=== PATIENT | male | born 1940 | race Caucasian/White ===

== ENCOUNTER → 2016-08-01 | Outpatient (CLI) | payer MEDICARE ==
[~2016-08-01] VITALS: Ht 182.9 cm; Wt 122.5 kg
[~2016-08-01] MED LIST: ALFU10TA11 PO; AMLO5TAB2 PO; AMLO5TAB5 PO; ASCO100099 PO; ASP325TEC PO; ASPI-808 PO; BETH10TA PO; CARV12.53 PO; CARV3.122 PO; CINN1CAP2 PO; CLIN150C17 PO; CLIN300C11 PO; COLC0.6C3 PO; DOCU100C37 PO; DOCU100T2 PO; FENO135C PO; FISH12002 PO; FLUO20CA25 PO; GEMF600T3 PO; GLIM4TAB PO; GLMP2T PO; HYDR-3820 PO; HYDR25TA4 PO; INSU100I29 SQ; IRON150C3 PO; LACT1CAP62 PO; LOSA100T28 PO; LOSA100T7 PO; LOVA40TA2 PO; METF1000 PO; MTF500T PO; MULT-963 PO; NAPR220T76 PO; NEBI5TAB8 PO; NIAC1000 PO; NIAC500T10 PO; NIAC500T24 PO; NTR.4SL SL; OLME1TAB25 PO; OSTEO BI-FLEX1 EACH PO; OXYC-465 PO; OXYC-471 PO; POLY119P5 PO; POLY17PO23 PO; POTA-51 PO; POTA2TAB15 PO; POTA99TA17 PO; POTA99TA18 PO; REGADENOSON 0.4 MG/5 ML SYR (LEXISCAN) IV ONE; RNT150T PO; SENN-20 PO; TRAM50TA2 PO; VITA150T PO
[2016-08-01] MEDS: CATHETER FLUSH 10 ML SYR IV PRN ×2 (07:42→09:02)
[2016-08-01 08:59] VITALS: BP 113/69
--- NOTE | 2016-08-02 07:50 | STRESS TEST ---
PROCEDURE PHYSICIAN: KELLEY KINGSLEY DATE OF PROCEDURE: 08/01/2016 LEXISCAN MYOVIEW STRESS TEST REPORT: REFERRING PHYSICIAN: Dr. Manasa Vasquez BASELINE HEART RATE: 68 BASELINE BLOOD PRESSURE: 113/69 BASELINE EKG: Sinus rhythm with no ischemic changes. IN SUMMARY: The patient was injected with 10.81 mCi of technetium 99 Myoview and the resting images were obtained. Then the patient received 0.4 mg of Lexiscan followed by 30.7 mCi of technetium 99 Myoview. Throughout the test, there were no EKG changes. The resting and stress images were reviewed and compared in the short axis, horizontal long axis, and vertical long axis views. Review of the images showed diaphragmatic attenuation with fixed defect at the basal to mid inferior wall, reversible ischemia involving the mid to apical inferior wall and inferior septum. SSS is 12, SDS 4, TID value 0.98. On the gated images, the left ventricle appeared to be normal size with mild hypokinesia at the true apex and anteroapical segment. Calculated ejection fraction 46%. IN CONCLUSION: 1. The patient tolerated Lexiscan well. 2. Diaphragmatic attenuation affecting the quality of the images with questionable ischemia involving the mid to apical inferior wall and inferior septum, fixed defect at the basal to mid inferior wall. 3. Normal left ventricular size with mild hypokinesia at the true apex and anteroapical segment. Calculated ejection fraction 46%. Job ID: [id number] Dictated Date: 08/01/2016 16:38:40 Risk Management Consultant Date: 08/02/2016 07:46:36 / casimiro
== END ==
LOC: CARD 07:31
PROVIDERS: ATTEND Physician Assistant
DX: I25.10 Atherosclerotic heart disease of native coronary artery without angina pectoris (principal); I65.23 Occlusion and stenosis of bilateral carotid arteries; I10 Essential (primary) hypertension; E78.2 Mixed hyperlipidemia
CPT/HCPCS: 78452; 93017

== ENCOUNTER → 2017-02-08 | Outpatient (CLI) | payer MEDICARE ==
[~2017-02-08] MED LIST changes: -REGADENOSON 0.4 MG/5 ML SYR (LEXISCAN) IV ONE
[2017-02-08 10:19] LABS: ALBUMIN 4.2 GM/DL (3.2-4.5); BILIRUBIN,TOTAL 0.4 MG/DL (0.1-1.0); CREATININE SERUM 1.51 MG/DL (0.60-1.30); POTASSIUM 4.2 MMOL/L (3.6-5.0); TOTAL PROTEIN 7.7 GM/DL (6.4-8.2)
== END ==
LOC: LAB 09:40
PROVIDERS: ATTEND Internal Medicine Cardiovascular Disease
DX: I25.10 Atherosclerotic heart disease of native coronary artery without angina pectoris (principal); I11.0 Hypertensive heart disease with heart failure; I50.1 Left ventricular failure, unspecified; I65.23 Occlusion and stenosis of bilateral carotid arteries
CPT/HCPCS: 36415; 80053; 80061

== ENCOUNTER → 2017-08-14 | Outpatient (CLI) | payer MEDICARE ==
[~2017-08-14] MED LIST changes: -METF1000 PO; +METF10002 PO
[2017-08-14 12:03] LABS: ALBUMIN 4.4 GM/DL (3.2-4.5); BILIRUBIN,TOTAL 0.5 MG/DL (0.1-1.0); CALCIUM 10.5 MG/DL (8.5-10.1); CREATININE SERUM 1.54 MG/DL (0.60-1.30); POTASSIUM 4.1 MMOL/L (3.6-5.0)
== END ==
LOC: LAB 11:26
PROVIDERS: ATTEND Physician Assistant
DX: I25.10 Atherosclerotic heart disease of native coronary artery without angina pectoris (principal); I10 Essential (primary) hypertension; E78.2 Mixed hyperlipidemia
CPT/HCPCS: 36415; 80053; 80061

== ENCOUNTER → 2017-08-16 | Outpatient (CLI) | payer MEDICARE ==
--- NOTE | 2017-08-16 12:55 | Diagnostic Imaging Report ---
PROCEDURE: CT left upper extremity without contrast. TECHNIQUE: Multiple contiguous axial images were obtained through the left upper extremity without the use of intravenous contrast. INDICATION: Painful hardware in left wrist. COMPARISON: 12/21/2014. FINDINGS: There is a dorsal plate with multiple screws, transfixing the radius, carpus, and third metacarpal. The three distal most screws are fractured. The two distal most screws have the heads removed. The plate appears intact. No significant hardware loosening is seen. There is some osseous fusion at the radioscaphoid joint, of approximately 70%. A small amount of osseous bridging is seen at the radiolunate joint, with some osseous fusion across the scapholunate interval (image 46 series 6). There is bony bridging at the dorsal aspect of the capitate and scaphoid as well as at the lunate and scaphoid, involving approximately the dorsal one-third of the joints. No other areas of bony union are seen. Degenerative changes are seen throughout the carpus. There are also mild degenerative changes at the distal radioulnar joint and in the visible hand. No soft tissue fluid collections are seen. The tendons and ligaments are suboptimally evaluated by CT. There are small soft tissue densities superficial to the flexor tendons of the third and fourth fingers (image 35 series 4), which may represent small areas of scarring or fibrosis. IMPRESSION: Dorsal plate fixating the third ray of the left hand, with fractured distal screws. There is [id number] osseous bridging at the areas described above, involving the radius, scaphoid, lunate and capitate. No acute fracture is seen. Dictated by: Dictated on workstation # [id number]
== END ==
LOC: RAD 09:14
PROVIDERS: ATTEND Orthopaedic Surgery
DX: T84.318A Breakdown (mechanical) of other bone devices, implants and grafts, initial encounter (principal)
CPT/HCPCS: 73200

== ENCOUNTER → 2017-11-20 | Outpatient (CLI) | payer MEDICARE ==
[~2017-11-20] MED LIST changes: -GEMF600T3 PO; +GEMF600T4 PO
--- NOTE | 2017-11-20 14:25 | Diagnostic Imaging Report ---
PROCEDURE: CT left upper extremity without contrast. TECHNIQUE: Multiple contiguous axial images were obtained through the left upper extremity without the use of intravenous contrast. INDICATION: Fracture. COMPARISON: Comparison made with prior examination 08/16/2017. FINDINGS: The previously seen plate transfixing the third ray of the right hand to the radius has been removed. There are three screws which remain in the third metacarpal. There are severe degenerative changes of the radiocarpal joint. There is osseous fusion at the radioscaphoid joint. There is also some osseous bridging in the radiolunate joint. Some osseous fusion again seen across the scapholunate. There is bony bridging along the dorsal aspect of the capitate and scaphoid as well as the lunate and scaphoid. There is no other acute fracture or dislocation. Soft tissues grossly unremarkable. Tendons and ligaments again are suboptimally evaluated by CT. There is some questionable fibrosis along the flexor tendons of the third and fourth fingers. IMPRESSION: 1. Interval removal of the dorsal plate which was fixating the third metacarpal to the radius. 2. Three screws remain in the third metacarpal. 3. Extensive degenerative changes as described. Dictated by: Dictated on workstation # [id number]
== END ==
LOC: RAD 12:51
PROVIDERS: ATTEND Nurse Practitioner Family
DX: S62.132A Displaced fracture of capitate [os magnum] bone, left wrist, initial encounter for closed fracture (principal); M19.032 Primary osteoarthritis, left wrist; Z96.7 Presence of other bone and tendon implants
CPT/HCPCS: 73200

== ENCOUNTER 2020-04-10 10:03 | Emergency (ER) | payer MEDICARE ==
[~2020-04-10] VITALS: Ht 180 cm; Wt 136.1 kg
[~2020-04-10 10:03] MED LIST changes: +ACHYD1T PO; -ALFU10TA11 PO; +ALFU10TA12 PO; +AMLO-250 PO; -AMLO5TAB2 PO; -CLIN300C11 PO; +CLIN300C12 PO; -FLUO20CA25 PO; +FLUO20CA46 PO; -GEMF600T4 PO; +GEMF600T8 PO; -GLIM4TAB PO; +GLIM4TAB5 PO; -HYDR-3820 PO; -LOSA100T28 PO; +LOSA100T57 PO; +METF-399 PO; -METF10002 PO; -NIAC500T10 PO; -OXYC-465 PO; +OXYC-556 PO; -POLY17PO23 PO; +POLY17PO31 PO; -TRAM50TA2 PO; +TRM50T PO; +[UNRECOGNIZED DRUG - CODE] PO
[2020-04-10] MEDS ORDERED: ASPIRIN 81 MG CHEW (CHILDREN'S ASA) ONE (10:30)
[2020-04-10] MEDS ORDERED: NITROGLYCERIN 0.4 MG SL TABS BTL 25'S SL ONE (10:34)
--- NOTE | 2020-04-10 10:56 | ED Chest Pain ---
General Chief Complaint: Chest Pain Stated Complaint: CP Source: patient Exam Limitations: no limitations History of Present Illness Date Seen by Provider: Apr 10, 2020 Time Seen by Provider: 10:50 Initial Comments Patient is a 79-year-old male who presents to the emergency department today with a chief complaint of substernal chest pain. Patient states that he woke up at 3 AM this morning with some chest pain and took some nitroglycerin. States was able to go back to sleep and woke up again at 9:00 this morning and had a repeat of chest pain. Patient was just getting up and out of bed when he had the discomfort. He rated it at a 6-7 at its worst. At the time of my evaluation his pain is resolved. When presenting to the emergency department he was continuing to complain of a little bit of pressure at a "2". Patient had one more nitroglycerin here which completely alleviated his pain. He denies any associated sweating or nausea. He did have a little shortness of breath with the discomfort. It was nonradiating. Patient tells me that he had stents placed approximately 4 months ago when he was visiting in [place]. Patient's local missionary coordinator is Dr. Barrow. He has an appointment with Dr. Barrow on May 04. Patient denies any recent illnesses, no fevers, chills, productive cough. No coronavirus contacts. No other GI or complaints. All other review of systems reviewed and negative except as stated above. Timing/Duration: 4-6 hours Severity/Quality: moderate Location: substernal Radiation: no radiation Activities at Onset: none Prior CP/Workup: cardiac cath (stent 4 months ago) Modifying Factors: improves with nitroglycerin ASA po BOTTLE LINE WORKER: No NTG SL BOTTLE LINE WORKER: No Allergies and Home Medications Allergies Coded Allergies: No Known Drug Allergies (Unverified , 12/19/12) Home Medications Alfuzosin HCl 10 Mg Tab.er.24h, 10 MG PO DAILY@1800 Prescribed by: MONAE SALAZAR on 02/03/161802 Ascorbic Acid 1,000 Mg Tablet, 1,000 MG PO DAILY, (Reported) Aspirin 325 Mg Tablet, 325 MG PO BID, (Reported) Carvedilol 12.5 Mg Tablet, 12.5 MG PO BID, (Reported) Docusate Sodium 100 Mg Capsule, 100 MG PO BID Prescribed by: MONAE SALAZAR on 02/03/161802 Fish Oil/Borage/Flax/Om3,6,9#1 1,200 Mg Capsule, 1,200 MG PO DAILY, (Reported) Fluoxetine HCl 20 Mg Capsule, 20 MG PO DAILY, (Reported) Gemfibrozil 600 Mg Tablet, 600 MG PO BID, (Reported) Hydrochlorothiazide 25 Mg Tablet, 25 MG PO DAILY, (Reported) Hydrocodone Bit/Acetaminophen 1 Each Tablet, 1 EA PO Q4H PRN for PAIN Prescribed by: MONAE SALAZAR on 02/03/161802 Insulin Detemir 100 Unit/1 Ml Insuln.pen, 24 UNITS SQ HS, (Reported) Losartan Potassium 100 Mg Tablet, 100 MG PO DAILY, (Reported) Lovastatin 40 Mg Tablet, 40 MG PO HS, (Reported) Metformin HCl 1,000 Mg Tablet, 1,000 MG PO BID, (Reported) Multivitamin 1 Each Tablet, 1 TAB PO DAILY, (Reported) Polyethylene Glycol 3350 119 Gm Powder, 17 GM PO DAILY PRN for CONSTIPATION, (Reported) Potassium Gluconate 99 Mg Tablet, 99 MG PO DAILY, (Reported) Ranitidine Hcl 150 Mg Tablet, 150 MG PO HS, (Reported) Vitamin B Complex & Vit C No.4 150 Mg Tablet, 150 MG PO DAILY, (Reported) Patient Home Medication List Home Medication List Reviewed: Yes Review of Systems Review of Systems Constitutional: no symptoms reported, see HPI EENTM: No Symptoms Reported Respiratory: No Symptoms Reported Cardiovascular: Chest Pain Gastrointestinal: No Symptoms Reported Genitourinary: No Symptoms Reported Musculoskeletal: no symptoms reported Skin: no symptoms reported Psychiatric/Neurological: No Symptoms Reported Past Cqegjxg-Laiynn-Aonbke Hx Patient Social History Former Smoker, Quit: September 03, 1996 Recent Foreign Travel: No Contact w/Someone Who Travel: No Recent Hopitalizations: Yes Immunizations Up To Date Tetanus Booster (TDap): More than 5yrs Date of Pneumonia Vaccine: Jul 24, 2011 Date of Influenza Vaccine: Jan 07, 2014 Seasonal Allergies Seasonal Allergies: No Past Medical History CABG, Joint Replacement, Orthopedic Sleep Apnea Currently Using CPAP: Yes Currently Using BIPAP: No Coronary Artery Disease, High Cholesterol, Hypertension Dementia Reproductive Disorders: No Sexually Transmitted Disease: No HIV/AIDS: No Renal Failure Chronic Constipation Degenerate Disk Disease Diabetes, Insulin dep Anxiety, Depression Adverse Reaction/Blood Tranf: No Family Medical History No Pertinent Family Hx, Diabetes Physical Exam Vital Signs Vital Signs - First Documented 04/10/20 10:13 Temp 36.4 Pulse 76 Resp 17 B/P (MAP) 167/81 (109) Pulse Ox 97 O2 Delivery Room Air Capillary Refill : Height, Weight, BMI Height: 6'0.00" Weight: 270lbs. 0.0oz. 122.989241sj; 36.6 BMI Method:Stated General Appearance: No Apparent Distress, WD/WN HEENT: PERRL/EOMI Neck: Full Range of Motion Respiratory: Chest Non Tender, Lungs Clear, Normal Breath Sounds, No Accessory Muscle Use, No Respiratory Distress Cardiovascular: Regular Rate, Rhythm, Systolic Murmur Gastrointestinal: Normal Bowel Sounds, Non Tender, Soft Extremity: Normal Capillary Refill, Normal Inspection, Normal Range of Motion, Non Tender, No Calf Tenderness, No Pedal Edema Neurologic/Psychiatric: Alert, Oriented x3, No Motor/Sensory Deficits, Normal Mood/Affect, supervisor plate pasting II-XII Norm as Tested Skin: Normal Color, Warm/Dry Progress/Results/Core Measures Results/Orders Lab Results Laboratory Tests Test 04/10/20 10:28 04/10/20 13:25 Range/Units White Blood Count 8.2 4.3-11.0 10^3/uL Red Blood Count 3.16 L 4.30-5.52 10^6/uL Hemoglobin 7.5 L 13.3-17.7 g/dL Hematocrit 25 L 40-54 % Mean Corpuscular Volume 80 80-99 fL Mean Corpuscular Hemoglobin 24 L 25-34 pg Mean Corpuscular Hemoglobin Concent 30 L 32-36 g/dL Red Cell Distribution Width 18.1 H 10.0-14.5 % Platelet Count 371 130-400 10^3/uL Mean Platelet Volume 11.3 9.0-12.2 fL Immature Granulocyte % (Auto) 1 % Neutrophils (%) (Auto) 49 42-75 % Lymphocytes (%) (Auto) 30 12-44 % Monocytes (%) (Auto) 13 H 0-12 % Eosinophils (%) (Auto) 6 0-10 % Basophils (%) (Auto) 1 0-10 % Neutrophils # (Auto) 4.0 1.8-7.8 10^3/uL Lymphocytes # (Auto) 2.5 1.0-4.0 10^3/uL Monocytes # (Auto) 1.1 H 0.0-1.0 10^3/uL Eosinophils # (Auto) 0.5 H 0.0-0.3 10^3/uL Basophils # (Auto) 0.1 0.0-0.1 10^3/uL Immature Granulocyte # (Auto) 0.1 0.0-0.1 10^3/uL Prothrombin Time 16.0 H 12.2-14.7 SEC INR Comment 1.2 0.8-1.4 Activated Partial Thromboplast Time 34 24-35 SEC Sodium Level 142 135-145 MMOL/L Potassium Level 4.0 3.6-5.0 MMOL/L Chloride Level 112 H 98-107 MMOL/L Carbon Dioxide Level 19 L 21-32 MMOL/L Anion Gap 11 5-14 MMOL/L Blood Urea Nitrogen 51 H 7-18 MG/DL Creatinine 1.80 H 0.60-1.30 MG/DL Estimat Glomerular Filtration Rate 37 BUN/Creatinine Ratio 28 Glucose Level 126 H 70-105 MG/DL Calcium Level 8.8 8.5-10.1 MG/DL Corrected Calcium 8.9 8.5-10.1 MG/DL Magnesium Level 1.8 1.6-2.4 MG/DL Total Bilirubin 0.3 0.1-1.0 MG/DL Aspartate Amino Transf (AST/SGOT) 15 5-34 U/L Alanine Aminotransferase (ALT/SGPT) 14 0-55 U/L Alkaline Phosphatase 74 40-136 U/L Myoglobin 69.8 10.0-92.0 NG/ML Troponin I < 0.028 < 0.028 <0.028 NG/ML B-Type Natriuretic Peptide 96.4 <100.0 PG/ML Total Protein 6.9 6.4-8.2 GM/DL Albumin 3.9 3.2-4.5 GM/DL Lipase 86 H 8-78 U/L My Orders Orders - YAMILET KASPER MD Aspirin Chewable Tablet (Baby Aspirin Ch (04/10/20 10:30) Nitroglycerin 0.4 Mg Btl 25's (Nitrostat (04/10/20 10:34) Troponin I (04/10/20 13:37) Medications Given in ED Current Medications Medications Dose Ordered Sig/Miguel A Route Start Time Stop Time Status Last Admin Dose Admin Aspirin 81 mg STK-MED ONCE .ROUTE 04/10/20 10:30 04/10/20 10:32 DC 04/10/20 10:31 81 MG Nitroglycerin 0.4 mg STK-MED ONCE SL 04/10/20 10:34 04/10/20 10:37 DC 04/10/20 10:35 0.4 MG Vital Signs/I&O 04/10/20 10:13 Temp 36.4 Pulse 76 Resp 17 B/P (MAP) 167/81 (109) Pulse Ox 97 O2 Delivery Room Air Progress Progress Note : Time: 14:20 Progress Note Patient has been resting comfortably here in the emergency department without complaint. No return of chest pain., 2 sets of cardiac enzymes have been evaluated, troponin is negative with each. Patient's EKG shows normal sinus rhythm without ST segment elevation or depression. Occasional PVC. Patient has no concerning findings for acute coronary syndrome at this time. Patient will be discharged home. He is comfortable with the plan of care. He will follow up with his missionary coordinator. All questions are sought and answered and he is stable for discharge. Departure Impression Primary Impression: Chest pain Qualified Codes: R07.9 - Chest pain, unspecified Disposition: 01 HOME, SELF-CARE Condition: Stable Departure-Patient Inst. Decision time for Depature: 14:41 [place]: [facility] [place] Primary Care Physician BE ALMEIDA (Family) Primary Care Physician KELLEY BARROW MD Patient Instructions: Chest Pain That Is Not Caused by the Heart (DC) Add. Discharge Instructions: Please continue your current medications as prescribed. Please call Dr. Barrow's office for a follow-up appointment. If you have any persistent chest pain that is requiring repeated doses of nitroglycerin, if the chest pain is worsening, if you have symptoms of shortness of breath, sweating or nausea with chest pain please come back to the emergency department for reevaluation. All discharge instructions reviewed with patient and/or family. Voiced understanding. Scripts Nitroglycerin (Nitroglycerin) 0.4 Mg Tab.subl 0.4 MG SL NEEDED PRN for CHEST PAIN (ANGINA), #30 TAB 1 tablet sublingual as needed for chest pain. May repeat every 5 minutes x 3 doses Prov: YAMILET KASPER MD 04/10/20 YAMILET KASPER MD Apr 10, 2020 10:56
[2020-04-10 12:12] LABS: BASOPHILS # (AUTO) 0.1 10^3/uL (0.0-0.1); BASOPHILS % (AUTO) 1 % (0-10); EOSINOPHILS # (AUTO) 0.5 10^3/uL (0.0-0.3); EOSINOPHILS % (AUTO) 6 % (0-10); HEMATOCRIT 25 % (40-54); HEMOGLOBIN 7.5 g/dL (13.3-17.7); LYMPHOCYTES # (AUTO) 2.5 10^3/uL (1.0-4.0); LYMPHOCYTES % (AUTO) 30 % (12-44); MEAN CORPUSCULAR HEMOGLOBIN 24 pg (25-34); MEAN CORPUSCULAR HGB CONC 30 g/dL (32-36); MEAN CORPUSCULAR VOLUME 80 fL (80-99); MEAN PLATELET VOLUME 11.3 fL (9.0-12.2); MONOCYTES # (AUTO) 1.1 10^3/uL (0.0-1.0); MONOCYTES % (AUTO) 13 % (0-12); NEUTROPHILS % (AUTO) 49 % (42-75); PLATELET COUNT 371 10^3/uL (130-400); WHITE BLOOD COUNT 8.2 10^3/uL (4.3-11.0)
[2020-04-10 12:14] LABS: ALBUMIN 3.9 GM/DL (3.2-4.5)
[2020-04-10 12:15] LABS: INR 1.2 (0.8-1.4)
[2020-04-10 12:16] LABS: CALCIUM 8.8 MG/DL (8.5-10.1)
[2020-04-10 12:17] LABS: TOTAL PROTEIN 6.9 GM/DL (6.4-8.2)
[2020-04-10 12:19] LABS: BILIRUBIN,TOTAL 0.3 MG/DL (0.1-1.0)
[2020-04-10 12:21] LABS: CREATININE SERUM 1.8 MG/DL (0.60-1.30)
[2020-04-10 12:24] LABS: MAGNESIUM 1.8 MG/DL (1.6-2.4)
--- NOTE | 2020-04-10 13:03 | Diagnostic Imaging Report ---
HISTORY: Chest pain. COMPARISON: 07/23/2014. FINDINGS: Single frontal view of the chest demonstrates persistent cardiomegaly. This may be mildly increased compared to prior exams. Sternotomy wires are noted. There is mild central vascular congestion. No pleural effusion or pneumothorax is seen. No airspace consolidation is seen. IMPRESSION: 1. Pwknyipr-no-ybgnio cardiomegaly, may be mildly increased since the prior study. Mild central vascular congestion. Dictated by: Dictated on workstation # [id number]
[2020-04-10 14:28] VITALS: BP 161/60
[2020-04-10] MEDS ORDERED: NITR0.4T42 SL (14:28)
== END 2020-04-10 14:28 | disposition home or self-care (01) ==
LOC: EDUNIT# 10:03 → ER 10:05
DX: R07.9 Chest pain, unspecified (principal); E11.9 Type 2 diabetes mellitus without complications; Z79.4 Long term (current) use of insulin; I10 Essential (primary) hypertension; E78.00 Pure hypercholesterolemia, unspecified; F32.9 Major depressive disorder, single episode, unspecified; Z95.1 Presence of aortocoronary bypass graft; Z87.891 Personal history of nicotine dependence; Z79.82 Long term (current) use of aspirin
CPT/HCPCS: 36415; 71045; 80053; 83690; 83735; 83874; 83880; 84484; 85025; 85610; 85730; 93005; 93041

== ENCOUNTER 2020-04-15 19:55 | Inpatient (IN) | payer MEDICARE ==
[2020-04-15] VITALS (7 sets, daily range): BP systolic 179–193; BP diastolic 72–96
[~2020-04-15] VITALS: Ht 180 cm; Wt 139.6 kg
[~2020-04-15 19:55] MED LIST changes: +NITR0.4T42 SL
[2020-04-15] MEDS ORDERED: morphine INJ 10 MG/ML 1ML (SYR OR VIAL) IVP STA (20:24)
[2020-04-15] MEDS ORDERED: ASPIRIN 81 MG CHEW (CHILDREN'S ASA) ONE (20:26)
[2020-04-15 20:30] LABS: BASOPHILS % (AUTO) 0 % (0-10); EOSINOPHILS # (AUTO) 0.5 10^3/uL (0.0-0.3); EOSINOPHILS % (AUTO) 4 % (0-10); HEMATOCRIT 23 % (40-54); LYMPHOCYTES # (AUTO) 2.7 10^3/uL (1.0-4.0); LYMPHOCYTES % (AUTO) 25 % (12-44); MEAN CORPUSCULAR HEMOGLOBIN 24 pg (25-34); MEAN CORPUSCULAR HGB CONC 29 g/dL (32-36); MEAN CORPUSCULAR VOLUME 80 fL (80-99); MONOCYTES # (AUTO) 1.4 10^3/uL (0.0-1.0); MONOCYTES % (AUTO) 12 % (0-12); NEUTROPHILS # (AUTO) 6.5 10^3/uL (1.8-7.8); NEUTROPHILS % (AUTO) 59 % (42-75); PLATELET COUNT 322 10^3/uL (130-400); WHITE BLOOD COUNT 11.1 10^3/uL (4.3-11.0)
[2020-04-15] MEDS ORDERED: ONDANSETRON 4 MG/2 ML (SDV) Z0FRAN IVP ONE (20:30)
--- NOTE | 2020-04-15 20:33 | ED Chest Pain ---
General Chief Complaint: Chest Pain Stated Complaint: CHEST PAIN/L & R ARM PAIN/HEADACHE/SOB Nursing Triage Note: TO ED VIA POV AND TO ROOM 6 WITH C/O CP SINCE THIS MORNING. STATES HE TOOK A TOTAL OF 3 NITRO AT HOME WITH NO RELIEF. RATES PAIN 6-7/10. RADIATES TO BILATERAL ARMS AND HEADACHE. Nursing Sepsis Screen: No Definite Risk Source: patient Exam Limitations: no limitations History of Present Illness Date Seen by Provider: Apr 15, 2020 Time Seen by Provider: 20:28 Initial Comments Patient is a 79-year-old male who presents to the emergency department today with a chief complaint of substernal chest pain radiating into bilateral arms and shoulders. Patient states that he woke up with this pain this morning and has taken 3 nitroglycerin tablets throughout the morning. Patient states the pain has been intermittent and is especially worse when he gets up and walks at all. Patient states he is not nauseated or sweaty with the pain but becomes short of breath with the pain. I saw the patient with similar complaints on the and his work-up was unremarkable. Patient states that he had a stent placed about 5 or 6 months ago in [facility] when he was visiting a daughter. He has not seen his primary flue lining dipper, Dr. Barrow since that time. Patient states that he is compliant with his daily medications. He did take 1 baby aspirin this morning. Patient currently rates his pain at a "7 or 8". EKG at the bedside shows normal sinus rhythm at 92 bpm with a prolonged GA at 213 indicating first-degree AV block. Patient has ST depression in the precordial leads V2, V3, V4, V5. QTc is 499. 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 Patient will be treated here in the emergency department with 324 mg of baby aspirin, 2 mg of morphine and 4 mg of Zofran. Timing/Duration: 4-6 hours, intermittent Severity/Quality: moderate, aching ("Like I am being punched in the chest") Location: substernal Radiation: arms Activities at Onset: activity Prior CP/Workup: cardiac cath Modifying Factors: worse with movement; improves with rest ASA po DIRECTOR TECHNICAL: Yes NTG SL DIRECTOR TECHNICAL: Yes Associated Symptoms: denies symptoms Allergies and Home Medications Allergies Coded Allergies: No Known Drug Allergies (Unverified , 12/19/12) Home Medications Apixaban 5 Mg Tablet, 5 MG PO BID, (Reported) Ascorbic Acid 1,000 Mg Tablet, 1,000 MG PO DAILY, (Reported) Aspirin 81 Mg Tablet.dr, 81 MG PO DAILY, (Reported) Clopidogrel Bisulfate 75 Mg Tablet, 75 MG PO DAILY, (Reported) Gemfibrozil 600 Mg Tablet, 600 MG PO BID, (Reported) Hydrochlorothiazide 25 Mg Tablet, 25 MG PO DAILY, (Reported) Insulin Aspart 100 Unit/1 Ml Susp, 20 UNIT SQ BID, (Reported) Insulin Glargine,Hum.rec.anlog 100 Unit/1 Ml Insuln.pen, 70 UNIT SQ BID, (Reported) Losartan Potassium 100 Mg Tablet, 100 MG PO DAILY, (Reported) Lovastatin 40 Mg Tablet, 40 MG PO HS, (Reported) Metoprolol Tartrate 25 Mg Tablet, 12.5 MG PO BID, (Reported) Multivitamin 1 Each Tablet, 1 TAB PO DAILY, (Reported) Nitroglycerin 0.4 Mg Tab.subl, 0.4 MG SL NEEDED PRN for CHEST PAIN (ANGINA) 1 tablet sublingual as needed for chest pain. May repeat every 5 minutes x 3 doses Prescribed by: YAMILET KASPER on 04/10/20 1428 Potassium Gluconate 99 Mg Tablet, 99 MG PO DAILY, (Reported) Vitamin B Complex & Vit C No.4 150 Mg Tablet, 150 MG PO DAILY, (Reported) Patient Home Medication List Home Medication List Reviewed: Yes Review of Systems Review of Systems Constitutional: see HPI Respiratory: SOA With Exertion Cardiovascular: Chest Pain Gastrointestinal: No Symptoms Reported Genitourinary: No Symptoms Reported Musculoskeletal: no symptoms reported Skin: no symptoms reported All Other Systems Reviewed Negative Unless Noted: Yes Past Icujomm-Htvgxs-Uqnudm Hx Patient Social History Alcohol Use: Occasionally Uses Alcohol Beverage of Choice: Beer Recreational Drug Use: No Smoking Status: Former Smoker Former Smoker, Quit: September 03, 1996 Recent Foreign Travel: No Contact w/Someone Who Travel: No Recent Infectious Disease Expo: No Recent Hopitalizations: Yes Physical Abuse: No Sexual Abuse: No Mistreated: No Fear: No Immunizations Up To Date Tetanus Booster (TDap): More than 5yrs Date of Pneumonia Vaccine: Jul 24, 2011 Date of Influenza Vaccine: Mar 02, 2020 Seasonal Allergies Seasonal Allergies: No Past Medical History Surgeries: Yes CABG, Joint Replacement, Orthopedic Respiratory: Yes Sleep Apnea Currently Using CPAP: Yes Currently Using BIPAP: No Cardiac: Yes Coronary Artery Disease, High Cholesterol, Hypertension Neurological: Yes Dementia Reproductive Disorders: No Sexually Transmitted Disease: No HIV/AIDS: No Genitourinary: No Renal Failure Gastrointestinal: Yes Chronic Constipation Musculoskeletal: Yes Degenerate Disk Disease Endocrine: Yes Diabetes, Insulin dep HEENT: No Cancer: No Psychosocial: Yes Anxiety, Depression Integumentary: No Blood Disorders: No Adverse Reaction/Blood Tranf: No Family Medical History No Pertinent Family Hx, Diabetes Physical Exam Vital Signs Vital Signs - First Documented 04/15/20 20:04 Temp 37.1 Pulse 94 Resp 20 B/P (MAP) 192/81 (118) O2 Delivery Room Air Capillary Refill : Less Than 3 Seconds Height, Weight, BMI Height: 6'0.00" Weight: 270lbs. 0.0oz. 122.352366dd; 41.00 BMI Method:Stated General Appearance: No Apparent Distress, WD/WN, Anxious Neck: Full Range of Motion Respiratory: Chest Non Tender, Lungs Clear, Normal Breath Sounds, No Accessory Muscle Use, No Respiratory Distress Cardiovascular: Regular Rate, Rhythm, No Murmur Gastrointestinal: Normal Bowel Sounds, Non Tender, Soft Extremity: Normal Inspection, No Pedal Edema Neurologic/Psychiatric: Alert, Oriented x3, No Motor/Sensory Deficits, Normal Mood/Affect, construction craft laborer II-XII Norm as Tested Skin: Normal Color, Warm/Dry Critical Care Note Critical Care Start Time: 20:25 Stop Time: 21:00 Total Time (minutes) 40 minutes critical care time in the evaluation and management of this patient with unstable angina, severe anemia, acute kidney injury. Discussion with admitting hospitalist, review of the medical record; discussion with flue lining dipper regarding further management; discussion with general surgery regarding anemia and possible GI bleed; initiation of blood transfusion fluid resuscitation pain management for chest pain Progress/Results/Core Measures Results/Orders Lab Results Laboratory Tests Test 04/15/20 20:08 04/15/20 20:32 Range/Units White Blood Count 11.1 H 4.3-11.0 10^3/uL Red Blood Count 2.85 L 4.30-5.52 10^6/uL Hemoglobin 6.7 *L 13.3-17.7 g/dL Hematocrit 23 L 40-54 % Mean Corpuscular Volume 80 80-99 fL Mean Corpuscular Hemoglobin 24 L 25-34 pg Mean Corpuscular Hemoglobin Concent 29 L 32-36 g/dL Red Cell Distribution Width 18.2 H 10.0-14.5 % Platelet Count 322 130-400 10^3/uL Mean Platelet Volume 11.0 9.0-12.2 fL Immature Granulocyte % (Auto) 1 % Neutrophils (%) (Auto) 59 42-75 % Lymphocytes (%) (Auto) 25 12-44 % Monocytes (%) (Auto) 12 0-12 % Eosinophils (%) (Auto) 4 0-10 % Basophils (%) (Auto) 0 0-10 % Neutrophils # (Auto) 6.5 1.8-7.8 10^3/uL Lymphocytes # (Auto) 2.7 1.0-4.0 10^3/uL Monocytes # (Auto) 1.4 H 0.0-1.0 10^3/uL Eosinophils # (Auto) 0.5 H 0.0-0.3 10^3/uL Basophils # (Auto) 0.0 0.0-0.1 10^3/uL Immature Granulocyte # (Auto) 0.1 0.0-0.1 10^3/uL Prothrombin Time 15.2 H 12.2-14.7 SEC INR Comment 1.2 0.8-1.4 Activated Partial Thromboplast Time 40 H 24-35 SEC Sodium Level 141 135-145 MMOL/L Potassium Level 3.9 3.6-5.0 MMOL/L Chloride Level 105 98-107 MMOL/L Carbon Dioxide Level 23 21-32 MMOL/L Anion Gap 13 5-14 MMOL/L Blood Urea Nitrogen 43 H 7-18 MG/DL Creatinine 2.16 H 0.60-1.30 MG/DL Estimat Glomerular Filtration Rate 30 BUN/Creatinine Ratio 20 Glucose Level 219 H 70-105 MG/DL Calcium Level 9.3 8.5-10.1 MG/DL Total Creatine Kinase 65 30-200 U/L Creatine Kinase MB 2.4 <6.6 NG/ML Troponin I 0.096 H <0.028 NG/ML Urine Color YELLOW Urine Clarity CLEAR Urine pH 5.5 5-9 Urine Specific [place] 1.025 H 1.016-1.022 Urine Protein 2+ H NEGATIVE Urine Glucose (UA) NEGATIVE NEGATIVE Urine Ketones NEGATIVE NEGATIVE Urine Nitrite NEGATIVE NEGATIVE Urine Bilirubin NEGATIVE NEGATIVE Urine Urobilinogen 0.2 < = 1.0 MG/DL Urine Leukocyte Esterase NEGATIVE NEGATIVE Urine RBC (Auto) 1+ H NEGATIVE Urine RBC 10-25 H /HPF Urine WBC NONE /HPF Urine Squamous Epithelial Cells 0-2 /HPF Urine Crystals NONE /LPF Urine Bacteria NEGATIVE /HPF Urine Casts NONE /LPF Urine Mucus NEGATIVE /LPF Urine Culture Indicated NO My Orders Orders - YAMILET KASPER MD Morphine Injection (Morphine Injection (04/15/20 20:24) Ondansetron Injection (Zofran Injectio (04/15/20 20:30) Aspirin Chewable Tablet (Baby Aspirin Ch (04/16/20 09:00) Cbc With Automated Diff (04/15/20 20:24) Basic Metabolic Panel (04/15/20 20:24) Creatine Kinase (04/15/20 20:24) Creatine Kinase Mb (04/15/20 20:24) Troponin I (04/15/20 20:24) Chest 1 View, Ap/Pa Only (04/15/20 20:24) Ekg Tracing (04/15/20 20:24) Aspirin Chewable Tablet (Baby Aspirin Ch (04/15/20 20:26) Ekg Tracing (04/15/20 20:36) Ua Culture If Indicated (04/15/20 20:57) Fecal Occult Bedside (04/15/20 20:57) Nitroglycerin 0.4 Mg Btl 25's (Nitrostat (04/15/20 21:00) Type And Screen (04/15/20 20:57) Red Cells Leukocytes Reduced (04/15/20 20:57) Protime With Inr (04/15/20 21:02) Partial Thromboplastin Time (04/15/20 21:02) Ns Iv 500 Ml (Sodium Chloride 0.9%) (04/15/20 21:16) Medications Given in ED Vital Signs/I&O 04/15/20 04/15/20 20:04 20:04 Temp 37.1 Pulse 94 Resp 20 B/P (MAP) 192/81 (118) O2 Delivery Room Air Room Air Blood Pressure Mean: 118 Progress Progress Note : Time: 21:33 Progress Note Patient seen and evaluated by me, evaluation today includes a physical exam, chest x-ray, EKG, basic laboratory studies. Patient is noted to be profoundly anemic with a serum hemoglobin of 6.7 this is down from when he was seen by me on 04/10/2020. Patient's creatinine is also increased since that visit. Patient's troponin is positive today. I believe he is likely having a GI bleed secondary to chronic anticoagulation with Eliquis Plavix and aspirin. Fecal occult at the bedside is negative this evening. Patient is fluid resuscitated with 500 cc of normal saline and typed and crossed for 2 units of packed red cells. Patient is given 2 mg of morphine and 4 mg of Zofran for his chest pain as well as sublingual nitroglycerin to alleviate his chest pain. He did achieve significant relief with these medications. Case is discussed extensively with Dr. Bill sellers for [facility], Dr. Barrow the patient's flue lining dipper, Dr. Carla sellers for general surgery regarding GI bleed. Patient will be admitted to the floor this evening for transfusion, fluids and then transferred to cardiac stepdown in the morning. Initial ECG Rhythm: Normal Sinus Initial ECG Intervals: GA Comment Patient has ST depression in the precordial leads V2 3 and 4 consistent with cardiac ischemia Diagnostic Imaging Diagonstic Imaging: Xray Plain Films/CT/US/NM/MRI: chest Comments [facility] [place], [place] NAME: ARMANDO GROSS [facility] REC#: [id number] PT STATUS: REG ER : 1940 PHYSICIAN: YAMILET KASPER MD ADMIT DATE: 04/15/20/ER Draft Date of Exam:04/15/20 CHEST 1 VIEW, AP/PA ONLY INDICATION: Chest pain. COMPARISON: 04/10/2020. EXAMINATION: Single frontal view of the chest was obtained. FINDINGS: Persistent marked cardiomegaly. Pulmonary vasculature however is within normal limits. Sternotomy wires are again noted. The lungs are well aerated and clear. No large pleural effusion or pneumothorax is seen. The visualized osseous structures show no acute abnormality. IMPRESSION: Persistent marked cardiomegaly, but no evidence of failure or focal infiltrate. Dictated on workstation # [id number] Dict: 04/15/202099 Trans: 04/15/202106 [facility] [id number] Interpreted by: YUNG NICHOLAS MD Electronically signed by: Consults : Consulting Physician: DELANEY AGUIRRE MD CP/AMI: Aspirin, ECG, Nitrates Departure Communication (Admissions) Time/Spoke to Admitting Phy: 20:[address] Khan on for [facility]. Would like cardiac stepdown bed however will admit to medical floor for the night and then upgrade him to cardiac stepdown in the morning. Time/Spoke to Consulting Phy: 20:[address] Barrow. We will keep the patient on Plavix and aspirin at this time and hold his Eliquis; further DVT prophylaxis contraindicated secondary to possible GI bleed Also discussed with Dr. Aguirre at 9:15 PM. We will see the patient in consultation Impression Primary Impression: Unstable angina Additional Impressions: Acute kidney injury Anemia Qualified Codes: D50.0 - Iron deficiency anemia secondary to blood loss (chronic) Disposition: ADMITTED INPATIENT Condition: Stable Admissions Decision to Admit Reason: Admit from ER (General) Decision to Admit/Date: Apr 15, 2020 Time/Decision to Admit Time: 20:33 Departure-Patient Inst. Referrals: [facility] (PCP) Primary Care Physician BE ALMEIDA (Family) Primary Care Physician YAMILET KASPER MD Apr 15, 2020 20:33
[2020-04-15 20:38] LABS: POTASSIUM 3.9 MMOL/L (3.6-5.0)
[2020-04-15 20:39] LABS: CALCIUM 9.3 MG/DL (8.5-10.1)
[2020-04-15 20:44] LABS: CREATININE SERUM 2.16 MG/DL (0.60-1.30); HEMOGLOBIN 6.7 g/dL (13.3-17.7)
--- NOTE | 2020-04-15 20:45 | NUR ---
PT STATES HE HAS HAD "BLACK STOOLS" FOR APPROX 2 MONTHS.
--- NOTE | 2020-04-15 20:47 | NUR ---
2046-RIGHT SIDED EKG. SEE CHART.
[2020-04-15 20:52] LABS: CREATINE KINASE MB 2.4 NG/ML (<6.6)
[2020-04-15] MEDS: NITROGLYCERIN 0.4 MG SL TABS BTL 25'S SL PRN ×2 (21:04→21:32)
--- NOTE | 2020-04-15 21:08 | Diagnostic Imaging Report ---
INDICATION: Chest pain. COMPARISON: 04/10/2020. EXAMINATION: Single frontal view of the chest was obtained. FINDINGS: Persistent marked cardiomegaly. Pulmonary vasculature however is within normal limits. Sternotomy wires are again noted. The lungs are well aerated and clear. No large pleural effusion or pneumothorax is seen. The visualized osseous structures show no acute abnormality. IMPRESSION: Persistent marked cardiomegaly, but no evidence of failure or focal infiltrate. Dictated by: Dictated on workstation # [id number]
--- NOTE | 2020-04-15 21:15 | NUR ---
PT DAUGHTER VINOD NOTIFIED OF PT CONDITION AND NEED FOR ADMITTANCE TO HOSPITAL. PASSWORD ESTABLISHED: "TAY".
[2020-04-15] MEDS ORDERED: NS IV 500 ML 500 ML IV STA (21:16)
[2020-04-15 21:26] LABS: BILIRUBIN,URINE NEGATIVE (NEGATIVE); CLARITY,URINE CLEAR; COLOR,URINE YELLOW; GLUCOSE, URINE (UA) NEGATIVE (NEGATIVE); KETONES,URINE NEGATIVE (NEGATIVE); LEUKOCYTE ESTERASE ,URINE NEGATIVE (NEGATIVE); NITRITE,URINE NEGATIVE (NEGATIVE); PH,URINE 5.5 (5-9); PROTEIN,URINE 2+ (NEGATIVE)
[2020-04-15 21:35] LABS: BACTERIA,URINE NEGATIVE /HPF; SQUAMOUS EPITHELIAL CELL,UR 0-2 /HPF
--- NOTE | 2020-04-15 21:40 | NUR ---
PT DAUGHTER BROUGHT HIS CELL PHONE, CARCASS SPLITTER, GLASSES AND THEY WERE GIVEN TO PT AT THIS TIME.
--- NOTE | 2020-04-15 21:45 | NUR ---
CARLO BROCK'S NUMBER [phone].
[2020-04-15] MEDS ORDERED: NS IV 1000 ML 1,000 ML ONE (22:24)
--- NOTE | 2020-04-15 22:37 | CONSULTATION REPORT ---
DATE OF SERVICE: ATTENDING PRIMARY CARE PHYSICIAN: Ian Pablo APRN ADMITTING PHYSICIAN: Dr. Khan. HISTORY OF PRESENT ILLNESS: The patient is a 79-year-old male who presented to the Emergency Department with substernal chest pain starting in the morning, which persisted. He also had reported radiation of pain towards the bilateral shoulders and arms. He had taken sublingual nitroglycerin; however, this did not appear to help. He does have significant coronary artery disease and has had a coronary artery bypass grafting in the past as well as a cardiac catheterization and stent placement approximately 6 months ago in [place], [place]. He also did report exertional shortness of breath. EKG did show a first-degree heart block as well as mild ST segment depression. His troponin was mildly elevated at 0.095. The patient was also found to be anemic with a hemoglobin of 6.7. He does have a history of gastroesophageal reflux disease; however, he does not report any hematemesis, no coffee ground emesis as well as no red blood per rectum. He states that he may have noticed some darker stools in the past. PAST MEDICAL HISTORY: Coronary artery disease, hypercholesterolemia, hypertension, first-degree heart block, diabetes, gastroesophageal reflux disease, obstructive sleep apnea, dementia, renal failure, degenerative joint disease, depression, chronic constipation. PAST SURGICAL HISTORY: Coronary artery bypass grafting, cardiac catheterization and stent placement, total joint replacement. ALLERGIES: No known drug allergies. MEDICATIONS: Aspirin 325 mg b.i.d., alfuzosin, carvedilol, fish oil, fluoxetine, gemfibrozil, hydrochlorothiazide. SOCIAL HISTORY: Previous smoker, quit 97. Social alcohol. FAMILY HISTORY: Noncontributory. VITAL SIGNS: Temperature 37.1, blood pressure 143/61, pulse 85, respirations 16, pulse ox 94% on room air. REVIEW OF SYSTEMS: Well-nourished male currently in no acute distress. He is experiencing substernal chest discomfort with radiation towards the bilateral shoulders and arms, exertional shortness of breath. No nausea, vomiting, chronic constipation. No red blood per rectum, possible darker stools in the past few weeks. No fever, chills, no recent inadvertent weight loss. All other review of systems negative. PHYSICAL EXAMINATION: CHEST: Few scattered rales bilaterally. HEART: Regular, no murmurs. EXTREMITIES: No lower extremity edema, negative Homans sign. HEENT: No scleral icterus. NECK: No cervical lymphadenopathy. ABDOMEN: Soft, nontender, nondistended. SKIN: Warm, dry. LABORATORY DATA: WBC 11.1, hemoglobin 6.7, hematocrit 23, platelets 322. BUN 43, creatinine 2.16. Troponin 0.095. ASSESSMENT AND PLAN: A 79-year-old male with acute coronary syndrome. He will be admitted to telemetry as well as placed on aspirin, supplemental oxygen as well as pain control with morphine. Cardiology has also been consulted. Once the patient is stable, we will then evaluate for the potential source of anemia, which likely would be an upper GI source. However, if he has not had a colonoscopy in a significant amount of time, we will then proceed with both upper and lower endoscopy. Job ID: [id number] DocumentID: [id number] Dictated Date: 04/15/2020 22:11:14 Candy Roller Date: 04/15/2020 22:37:09 Dictated By: DELANEY MARIE MD
[2020-04-15] MEDS ORDERED: ONDANSETRON 4 MG/2 ML (SDV) Z0FRAN IVP PRN (23:00)
[2020-04-15] MEDS ORDERED: NITROGLYCERIN 0.4 MG SL TABS BTL 25'S SL PRN (23:00)
[2020-04-15] MEDS: NS IV 1000 ML 1,000 ML IV SCH (23:07)
--- NOTE | 2020-04-15 23:15 | NUR ---
PT C/O INCREASES CHEST PAIN 10/08. BLOOD PRESSURE 186/76. DR KINGSLEY NOTIFIED A NE ORDER TO GIVE 5MG LOPRESSOR IV X1 AND MORPHINE FOR CHEST PAIN. WILL CONTINUO TO MONITOR
[2020-04-15] MEDS ORDERED: meTOprolol 5 MG/5 ML (LOPRESSOR) VIAL IV ONE (23:30)
[2020-04-15] MEDS: morphine INJ 4 MG/ML 1 ML (VIAL/SYRINGE) IV PRN (23:40)
[2020-04-16] VITALS (29 sets, daily range): BP systolic 109–182; BP diastolic 55–79
[2020-04-16 02:39] LABS: INR 1.2 (0.8-1.4); PROTHROMBIN TIME PATIENT 15.2 SEC (12.2-14.7)
--- NOTE | 2020-04-16 03:00 | NUR ---
assumed care from NANCY Campos, agree with previous assessment, pt resting with eyes closed, needs met at this time.
--- NOTE | 2020-04-16 03:00 | NUR ---
assumed care from NANCY Campos. agree with previous assessment. pt resting with eyes closed, needs met at this time
--- NOTE | 2020-04-16 05:55 | History & Physical-Hospitalist ---
History of Present Illness HPI/Chief Complaint CC: GIB with chest pain HPI: This is a 79yoWM clinic patient of [facility] who had a recent stent placed while visiting family 5 months ago in [place] who presents to the ER with chest pain indicative of unstable angina. Patient was found to have low hgb 6.7 and reports passing melena for the past 2 months. Eliquis was stopped and will not be restarted per Cardiology. Patient was given 2 units of blood last night and Dr Juvencio mcintosh ordered 2 more units to get hgb 10 due to unstable angina and in need of EGD today so cardiac cath can be preformed. Source: patient Exam Limitations: no limitations Date Seen 04/16/20 Time Seen by a Provider: 10:00 Attending Physician Betsy Luna DO [facility] Referring Physician DELANEY MARIE MD Date of Admission Apr 15, 2020 at 21:24 Home Medications & Allergies Home Medications Reviewed patient Home Medication Reconciliation performed by pharmacy medication reconciliations audiovisual technician and/or nursing. Patients Allergies have been reviewed. Allergies Allergies Coded Allergies No Known Drug Allergies (Unverified12/19/12) Past Phrylxi-Mkwrbv-Fhneib Hx Past Med/Social Hx: Reviewed Nursing Past Med/Soc Hx, Reviewed and Corrections made Patient Social History Marrital Status: single Employed/Student: retired Alcohol Use: Occasionally Uses Alcohol Beverage of Choice: Beer Recreational Drug Use: No Smoking Status: Former Smoker Former Smoker, Quit: September 03, 1996 Recent Foreign Travel: No Contact w/other who traveled: No Recent Hopitalizations: Yes Recent Infectious Disease Expo: No Immunizations Up To Date Tetanus Booster (TDap): More than 5yrs Date of Pneumonia Vaccine: Jul 24, 2011 Date of Influenza Vaccine: Mar 02, 2020 Seasonal Allergies Seasonal Allergies: No Past Medical History Surgeries: CABG, Joint Replacement, Orthopedic Respiratory: Sleep Apnea Currently Using CPAP: Yes Currently Using BIPAP: No Cardiac: Coronary Artery Disease, High Cholesterol, Hypertension Neurological: Dementia Reproductive: No Sexually Transmitted Disease: No HIV/AIDS: No Genitourinary: Renal Failure Gastrointestinal: Chronic Constipation Musculoskeletal: Degenerate Disk Disease Endocrine: Diabetes, Insulin dep Psychosocial: Anxiety, Depression History of Blood Disorders: No Adverse Reaction to Blood Cruz: No Family History No Pertinent Family Hx, Diabetes Review of Systems Constitutional: see HPI, weakness Cardiovascular: chest pain Gastrointestinal: melena Physical Exam Physical Exam Vital Signs Vital Signs - First Documented 12/16/20 12/16/20 12/17/20 20:04 21:48 17:00 Temp 37.1 Pulse 94 Resp 20 B/P (MAP) 192/81 (118) Pulse Ox 94 O2 Delivery Room Air O2 Flow Rate 10 Capillary Refill : Less Than 3 Seconds Height, Weight, BMI Height: 6'0.00" Weight: 270lbs. 0.0oz. 122.438726ni; 41.69 BMI Method:Stated General Appearance: No Apparent Distress, Chronically ill Eyes: Right Eye Normal Inspection, Right Eye PERRL HEENT: PERRL/EOMI, Normal ENT Inspection, Pharynx Normal, Moist Mucous Membranes Neck: Full Range of Motion, Normal Inspection, Non Tender Respiratory: Chest Non Tender, Lungs Clear, Normal Breath Sounds, No Accessory Muscle Use, No Respiratory Distress Cardiovascular: Regular Rate, Rhythm, No Edema, No Gallop, No JVD, No Murmur, Normal Peripheral Pulses Gastrointestinal: Normal Bowel Sounds, No Organomegaly, No Pulsatile Mass, Non Tender, Soft Back: Normal Inspection, No CVA Tenderness, No Vertebral Tenderness Extremity: Normal Capillary Refill, Normal Inspection, Normal Range of Motion, Non Tender, No Calf Tenderness, No Pedal Edema Neurologic/Psychiatric: Alert, Oriented x3, No Motor/Sensory Deficits, Normal Mood/Affect Skin: Normal Color, Warm/Dry Lymphatic: No Adenopathy Results Results/Procedures Labs Laboratory Tests 04/15/20 20:08 04/16/20 06:40 04/16/20 14:19 Patient resulted labs reviewed. Assessment/Plan Admission Diagnosis Assessment: Unstable angina Severe symptomatic anemia s/p 4 units of blood transfusions CAD recent stent 5 months ago OAC now stopped indefinitely HTN HLP Plan: EGD today Cath tomorrow Monitor hgb Admission Status: Inpatient Order (span 2 midnights) Reason for Inpatient Admission: GIB and unstable angina Diagnosis/Problems Diagnosis/Problems (1) Unstable angina Status: Acute (2) Anemia Status: Acute Qualifiers: Anemia type: iron deficiency Iron deficiency anemia type: chronic blood loss Qualified Codes: D50.0 - Iron deficiency anemia secondary to blood loss (chronic) (3) Chest pain Status: Acute (4) Acute kidney injury Status: Acute Clinical Quality Measures AMI/AHF: ASA po Prior to arrival: Yes DVT/VTE Risk/Contraindication: Risk Factor Score Per Nursin RFS Level Per Nursing on Admit: 2=Moderate Other: GI BLEED BETSY LUNA DO Apr 16, 2020 05:55
[2020-04-16 06:54] LABS: BASOPHILS # (AUTO) 0.1 10^3/uL (0.0-0.1); BASOPHILS % (AUTO) 1 % (0-10); EOSINOPHILS # (AUTO) 0.4 10^3/uL (0.0-0.3); EOSINOPHILS % (AUTO) 4 % (0-10); HEMATOCRIT 25 % (40-54); HEMOGLOBIN 7.4 g/dL (13.3-17.7); LYMPHOCYTES # (AUTO) 2.9 10^3/uL (1.0-4.0); LYMPHOCYTES % (AUTO) 30 % (12-44); MEAN CORPUSCULAR HEMOGLOBIN 24 pg (25-34); MEAN CORPUSCULAR HGB CONC 30 g/dL (32-36); MEAN CORPUSCULAR VOLUME 80 fL (80-99); MEAN PLATELET VOLUME 11.2 fL (9.0-12.2); MONOCYTES # (AUTO) 1.4 10^3/uL (0.0-1.0); MONOCYTES % (AUTO) 14 % (0-12); NEUTROPHILS # (AUTO) 4.8 10^3/uL (1.8-7.8); NEUTROPHILS % (AUTO) 50 % (42-75); PLATELET COUNT 274 10^3/uL (130-400); WHITE BLOOD COUNT 9.6 10^3/uL (4.3-11.0)
[2020-04-16 07:21] LABS: ALBUMIN 3.6 GM/DL (3.2-4.5); BILIRUBIN,TOTAL 0.6 MG/DL (0.1-1.0); CALCIUM 9.1 MG/DL (8.5-10.1); CREATININE SERUM 1.91 MG/DL (0.60-1.30); TOTAL PROTEIN 6.4 GM/DL (6.4-8.2)
--- NOTE | 2020-04-16 07:42 | NUR ---
DR KINGSLEY ON FLOOR TO SEE PATIENT, ORDERED 2 ADDITIONAL UNITS OF BLOOD, TO INCREASE IV FLUIDS TO 100ML/HR.
[2020-04-16] MEDS ORDERED: NS IV 500 ML 500 ML IV SCH (07:45)
[2020-04-16] MEDS: ASPIRIN E.C. 81 MG (ECOTRIN) TAB PO SCH (08:57)
[2020-04-16] MEDS: CLOPIDOGREL 75 MG (PLAVIX) TABLET PO SCH (08:58)
[2020-04-16] MEDS ORDERED: PANTOPRAZOLE 40 MG (PROTONIX) VIAL IV SCH (09:00)
[2020-04-16] MEDS ORDERED: ASPIRIN 81 MG CHEW (CHILDREN'S ASA) PO SCH (09:00)
--- NOTE | 2020-04-16 09:32 | Consultation-Cardiology ---
HPI-Cardiology Cardiology Consultation Date of Consultation 04/16/20 Date of Admission Time Seen by Provider: 09:24 Indication: chest pain HPI 79 years old gentleman with extensive cardiac history, coronary artery disease, CABG, recent stenting about 5 months ago, questionable history of paroxysmal atrial fibrillation. Subtle have chest pain yesterday in the morning which pers isted the whole day continued to deteriorate and did not respond to sublingual nitroglycerin, but on arrival to the emergency room he was still having active chest pain, had EKG changes with mild elevation in troponin. Continue to complain of chest pain after morphine and nitroglycerin, noted to be severely anemic. Admit having some shortness of breath and lightheadedness. This morning he is feeling great, denied any further episodes of chest pain, reported that the chest pain fully resolved after receiving the second unit of blood transfusion. Home Medications & Allergies Allergies: Coded Allergies: No Known Drug Allergies (Unverified , 12/19/12) Home Medication List Reviewed: Yes [id number] Hx Patient Social History Marital Status: Employed/Student: retired Alcohol Use: Occasionally Uses Recreational Drug Use: No Smoking Status: Former Smoker Former smoker/When Quit: Jul 23, 1997 Recent Foreign Travel: No Recent Infectious Disease Expo: No Recent Hopitalizations: Yes Immunizations Up To Date Tetanus Booster (TDap): More than 5yrs Date of Pneumonia Vaccine: Jul 24, 2011 Date of Influenza Vaccine: Mar 02, 2020 Past Medical History discussed below Family Medical History Significant Family History: No Pertinent Family Hx, Diabetes Family Medical Hx noncontributory Review of Systems-General Review of Systems Constitutional: see HPI, malaise EENTM: see HPI, no symptoms reported Respiratory: no symptoms reported, see HPI, dyspnea on exertion Cardiovascular: see HPI, chest pain; No edema, No Hx of Intervention, No palpitations, No syncope, No vascular heart diseas, No other Gastrointestinal: no symptoms reported, see HPI Genitourinary: no symptoms reported, see HPI Musculoskeletal: no symptoms reported, see HPI Skin: no symptoms reported, see HPI Psychiatric/Neurological: No Symptoms Reported, See HPI All Other Systems Reviewed Negative Unless Noted: Yes Reviewed Test Results Reviewed Test Results Lab Laboratory Tests Test 04/15/20 20:08 04/15/20 20:32 04/16/20 06:40 Range/Units White Blood Count 11.1 H 9.6 4.3-11.0 10^3/uL Red Blood Count 2.85 L 3.08 L 4.30-5.52 10^6/uL Hemoglobin 6.7 *L 7.4 L 13.3-17.7 g/dL Hematocrit 23 L 25 L 40-54 % Mean Corpuscular Volume 80 80 80-99 fL Mean Corpuscular Hemoglobin 24 L 24 L 25-34 pg Mean Corpuscular Hemoglobin Concent 29 L 30 L 32-36 g/dL Red Cell Distribution Width 18.2 H 17.6 H 10.0-14.5 % Platelet Count 322 274 130-400 10^3/uL Mean Platelet Volume 11.0 11.2 9.0-12.2 fL Immature Granulocyte % (Auto) 1 1 % Neutrophils (%) (Auto) 59 50 42-75 % Lymphocytes (%) (Auto) 25 30 12-44 % Monocytes (%) (Auto) 12 14 H 0-12 % Eosinophils (%) (Auto) 4 4 0-10 % Basophils (%) (Auto) 0 1 0-10 % Neutrophils # (Auto) 6.5 4.8 1.8-7.8 10^3/uL Lymphocytes # (Auto) 2.7 2.9 1.0-4.0 10^3/uL Monocytes # (Auto) 1.4 H 1.4 H 0.0-1.0 10^3/uL Eosinophils # (Auto) 0.5 H 0.4 H 0.0-0.3 10^3/uL Basophils # (Auto) 0.0 0.1 0.0-0.1 10^3/uL Immature Granulocyte # (Auto) 0.1 0.1 0.0-0.1 10^3/uL Prothrombin Time 15.2 H 12.2-14.7 SEC INR Comment 1.2 0.8-1.4 Activated Partial Thromboplast Time 40 H 24-35 SEC Sodium Level 141 145 135-145 MMOL/L Potassium Level 3.9 4.0 3.6-5.0 MMOL/L Chloride Level 105 112 H 98-107 MMOL/L Carbon Dioxide Level 23 23 21-32 MMOL/L Anion Gap 13 10 5-14 MMOL/L Blood Urea Nitrogen 43 H 43 H 7-18 MG/DL Creatinine 2.16 H 1.91 H 0.60-1.30 MG/DL Estimat Glomerular Filtration Rate 30 34 BUN/Creatinine Ratio 20 23 Glucose Level 219 H 96 70-105 MG/DL Calcium Level 9.3 9.1 8.5-10.1 MG/DL Total Creatine Kinase 65 30-200 U/L Creatine Kinase MB 2.4 <6.6 NG/ML Troponin I 0.096 H 9.500 *H <0.028 NG/ML Urine Color YELLOW Urine Clarity CLEAR Urine pH 5.5 5-9 Urine Specific [place] 1.025 H 1.016-1.022 Urine Protein 2+ H NEGATIVE Urine Glucose (UA) NEGATIVE NEGATIVE Urine Ketones NEGATIVE NEGATIVE Urine Nitrite NEGATIVE NEGATIVE Urine Bilirubin NEGATIVE NEGATIVE Urine Urobilinogen 0.2 < = 1.0 MG/DL Urine Leukocyte Esterase NEGATIVE NEGATIVE Urine RBC (Auto) 1+ H NEGATIVE Urine RBC 10-25 H /HPF Urine WBC NONE /HPF Urine Squamous Epithelial Cells 0-2 /HPF Urine Crystals NONE /LPF Urine Bacteria NEGATIVE /HPF Urine Casts NONE /LPF Urine Mucus NEGATIVE /LPF Urine Culture Indicated NO Corrected Calcium 9.4 8.5-10.1 MG/DL Total Bilirubin 0.6 0.1-1.0 MG/DL Aspartate Amino Transf (AST/SGOT) 39 H 5-34 U/L Alanine Aminotransferase (ALT/SGPT) 15 0-55 U/L Alkaline Phosphatase 68 40-136 U/L Total Protein 6.4 6.4-8.2 GM/DL Albumin 3.6 3.2-4.5 GM/DL Triglycerides Level 122 <150 MG/DL Cholesterol Level 123 < 200 MG/DL LDL Cholesterol Direct 71 1-129 MG/DL VLDL Cholesterol 24 5-40 MG/DL HDL Cholesterol 31 L 40-60 MG/DL Physical Exam Physical Exam Vital Signs Vital Signs - First Documented 04/15/20 04/15/20 20:04 21:48 Temp 37.1 Pulse 94 Resp 20 B/P (MAP) 192/81 (118) Pulse Ox 94 O2 Delivery Room Air Capillary Refill : Less Than 3 Seconds Height, Weight, BMI Height: 6'0.00" Weight: 270lbs. 0.0oz. 122.189697xg; 41.69 BMI Method:Stated General Appearance: No Apparent Distress, WD/WN, Anxious Eyes: Bilateral Eye Normal Inspection, Bilateral Eye PERRL, Bilateral Eye EOMI HEENT: PERRL/EOMI, TMs Normal, Normal ENT Inspection, Pharynx Normal, Moist Mucous Membranes Neck: Full Range of Motion Respiratory: Chest Non Tender, Lungs Clear, Normal Breath Sounds, No Accessory Muscle Use, No Respiratory Distress Cardiovascular: Regular Rate, Rhythm, No Murmur Gastrointestinal: Normal Bowel Sounds, Non Tender, Soft Back: Normal Inspection, No CVA Tenderness, No Vertebral Tenderness Extremity: Normal Inspection, No Pedal Edema Neurologic/Psychiatric: Alert, Oriented x3, No Motor/Sensory Deficits, Normal Mood/Affect, care management specialist II-XII Norm as Tested Skin: Normal Color, Warm/Dry Lymphatic: No Adenopathy A/P-Cardiology Admission Diagnosis Acute non-ST elevation myocardial infarctions Anemia acute renal failure Hypertension Assessment/Plan Acute non-ST elevation myocardial infarction, elevated troponin, active chest pain that has resolved after resolution of the anemia. The management is complex due to the fact that patient has severe anemia and cannot tolerate aggressive anticoagulation if I need to proceed with a cardiac catheterization o r stenting. He is currently chest pain-free I will continue with conservative management and try to achieve hemoglobin over 10 prior to proceeding with a cardiac catheterization, possible cardiac catheterization tomorrow Severe anemia, probably GI loss, reporting occasional black stool. Received 2 units of packed RBCs and I will transfuse him another 2 units prior to considering cardiac catheterization, Dr. Aguirre consulted and patient will need to have upper and lower endoscopy Acute on chronic renal failure, worsening renal function, receiving IV fluid and I will continue monitoring renal function prior to proceeding with cardiac catheterization. Coronary artery disease, status post CABG 3 in 1997 with GUTIERREZ to LAD, vein graft to left circumflex, vein graft to first diagonal. Most recent cardiac catheterization was done in June 2014 showing patent bypass graft, the [place] arteries are diseased proximally, right coronary artery is totally occluded which was not bypassed but receiving collaterals from the LAD system. Patient reports he underwent stent placement to one of his vein grafts approx months ago in [place], [place]. patient was on aspirin and Plavix, I am holding them only today prior to the cardiac catheterization in trying to achieve adequate improvement in his hemoglobin Congestive heart failure, improved, most recent EF 50 percent. Maintained on beta benito and ARB, I will repeat 2-D echocardiogram Questionable PAF, maintained on Eliquis that was started approx 3 months ago. I am stopping Eliquis at this point due to the active bleed. Patient cannot tolerate taking Eliquis, aspirin and Plavix at the same time Right bundle branch block, chronic. Continue to monitor Hypertension, restart home medication monitor blood pressure, hold losartan for now Hyperlipidemia, I will evaluate lipid profile Mild bilateral carotid artery stenosis, last carotid ultrasound was done in December 2018, continue to monitor Diabetes mellitus-managed by primary care physician Obesity, BMI 40-instructed on importance of diet and exercise. Clinical Quality Measures AMI/AHF: ASA po Prior to arrival: Yes DVT/VTE Risk/Contraindication: Risk Factor Score Per Nursin RFS Level Per Nursing on Admit: 2=Moderate Other: GI BLEED KELLEY KINGSLEY MD Apr 16, 2020 09:32
--- NOTE | 2020-04-16 12:03 | Conscious Sedation/ASA ---
Conscious Sedation Pre-Proced Time 14:00 ASA Score 3 For ASA 3 and 4: Consider anesthesia and medical clearance. Also, for patients with a history of failed moderate sedation consider anesthesia. Airway Lungs Heart ASA score ASA 1: a normal healthy patient ASA 2: a patient with a mild systemic disease (mid diabetes, controlled hypertension, obesity ASA 3: a patient with a severe systemic disease that limits activity (angina, COPD, prior Myocardial infarction) ASA 4: a patient with an incapacitating disease that is a constant threat to life (CHF, renal failure) ASA 5: a moribund patient not expected to survive 24 hrs. (ruptured aneurysm) ASA 6: a declared brain- patient whose organs are being harvested. For emergent operations, add the letter E after the classification Mallampati Classification Grade 3 Sedation Plan Analgesia, Amnesia, Plan communicated to team members, Discussed options with patient/fam, Discussed risks with patient/fam The patient is an appropriate candidate to undergo the planned procedure, sedation, and anesthesia. The patient immediately re-assessed prior to indication. DELANEY MARIE MD Apr 16, 2020 12:03
--- NOTE | 2020-04-16 12:05 | Progress Note-Pre Operative ---
Pre-Operative Progress Note H&P Reviewed The H&P was reviewed, patient examined and no changes noted. Date Seen by Provider: Apr 16, 2020 Time Seen by Provider: 14:00 Date H&P Reviewed: Apr 16, 2020 Time H&P Reviewed: 14:00 Pre-Operative Diagnosis: upper GI bleed DELANEY MARIE MD Apr 16, 2020 12:05
--- NOTE | 2020-04-16 12:46 | NUR ---
consent signed for EGD today with Dr Stewart, verbalized understanding, MRSA nasal swabs done, covid rapid test done per pre-op
--- NOTE | 2020-04-16 12:48 | NUR ---
FAMILY NOTIFIED OF PROCEDURE
[2020-04-16] MEDS ORDERED: NS IV 500 ML 500 ML ONE (13:32)
[2020-04-16 14:25] LABS: HEMOGLOBIN 9.1 g/dL (13.3-17.7)
[2020-04-16] MEDS ORDERED: ASPI-1238 PO (14:37)
[2020-04-16 14:43] LABS: CALCIUM 9.1 MG/DL (8.5-10.1); CREATININE SERUM 1.8 MG/DL (0.60-1.30); MAGNESIUM 1.6 MG/DL (1.6-2.4); POTASSIUM 4.2 MMOL/L (3.6-5.0)
[2020-04-16] MEDS ORDERED: INSU100V16 SQ (15:42)
[2020-04-16] MEDS ORDERED: METO-333 PO (15:44)
[2020-04-16] MEDS ORDERED: CLOP75TA69 PO (15:44)
[2020-04-16] MEDS ORDERED: APIX5TAB PO (15:44)
[2020-04-16] MEDS ORDERED: INSU100I34 SQ (15:44)
[2020-04-16] MEDS ORDERED: AMLO-250 PO (15:48)
--- NOTE | 2020-04-16 16:30 | NUR ---
DR LUNA NOTIFIED OF HOME MEDICATION, ORDERED BLOOD SUGARS AND SLIDING SCALE INSULIN
[2020-04-16] MEDS ORDERED: LIDOCAINE JELLY 2% 6 ML SYRINGE ONE (16:55)
[2020-04-16] MEDS ORDERED: MIDAZOLAM 5 MG/5 ML (VERSED) VIAL ONE ×2 (16:55)
[2020-04-16] MEDS ORDERED: fentaNYL INJECTION 100 MCG/2 ML AMP ONE (16:55)
--- NOTE | 2020-04-16 17:06 | Progress Note-Post Operative ---
Post-Operative Progess Note Surgeon (s)/Corrective And Manual Arts Therapist (s) Surgeon DELANEY MARIE MD Corrective And Manual Arts Therapist: none Pre-Operative Diagnosis upper GI bleed Post-Operative Diagnosis reflux esophagitis(stage 2), small HH(2cm), severe gastritis with multiple small prepyloric ulcers with 2 small active bleeds. Procedure & Operative Findings Date of Procedure 04/16/20 Procedure Performed/Findings EGD with bx, cauterization, clipping for hemostasis. Anesthesia Type cs Estimated Blood Loss Estimated blood loss (mL): minimal Specimens/Packing Specimens Removed ge jxn, antrum DELANEY MARIE MD Apr 16, 2020 17:06
--- NOTE | 2020-04-16 17:30 | NUR ---
returned from endoscopy, alert, denies pain or sob, call light within reach, heart healthy diet ordered, instructed on being npo after midnight for heart cath in am
--- NOTE | 2020-04-16 18:06 | OPERATIVE REPORT ---
DATE OF SERVICE: ADMITTING PHYSICIAN: Dr. Khan. PREOPERATIVE DIAGNOSES: Chest pain with anemia. POSTOPERATIVE DIAGNOSES: Reflux esophagitis stage II, small hiatal hernia approximately 2 cm in size, severe gastritis of the stomach antrum with small multiple prepyloric ulcers, two of which were actively bleeding. PROCEDURES PERFORMED: EGD with biopsy and hemostasis with cautery as well as placement of clips. SURGEON: Delaney Marie MD. ANESTHESIA: Conscious sedation. ESTIMATED BLOOD LOSS: Minimal. FINDINGS: Same as postoperative diagnoses. DISPOSITION: The patient tolerated the procedure well. INDICATIONS FOR PROCEDURE: The patient is a 79-year-old male, who presented with chest pain as well as shortness of breath. He does have an extensive past cardiac history including coronary artery bypass grafting in the past as well as a recent cardiac catheterization and stent placement approximately six months ago. He also developed shortness of breath at home as well. He did have a slight elevation of troponin. He was found to be significantly anemic with a hemoglobin in the 6 range and he underwent 2 units of packed red blood cells, which did not allow for adequate increase in hemoglobin; however, after the second 2 units, this did increase. He does have a history of gastroesophageal reflux disease. He is also scheduled to undergo a cardiac catheterization tomorrow and will be on anticoagulation. DESCRIPTION OF PROCEDURE: The patient was brought to the endoscopy suite and laid in the left lateral decubitus position with the head slightly elevated. After adequate IV pain and sedative medications and conscious sedation anesthesia, the mouthpiece was applied. The endoscope was then placed in the mouth, visualizing the pharynx and hypopharyngeal region. Vocal cords, epiglottis and vallecula identified and appeared to be normal. The endoscope was then gently intubated and the esophageal opening and esophagus insufflated. The endoscope was then advanced through the first, second and third portion of esophagus. At the level of GE junction, a reflux esophagitis stage II was identified. There were no ulcers or strictures identified in this region. A biopsy was taken with forceps with visualization of good hemostasis. The endoscope was then advanced into the stomach and endoscope retroflexed, visualizing a small hiatal hernia approximately 2 cm in size. There was a severe gastritis towards the antrum and prepyloric region with multiple small ulcerations, each approximately 2 to 3 mm in size, two of which were slowly oozing blood. A biopsy was taken of the antrum to rule out H. pylori with the forceps and electrocautery with visualization of good hemostasis. The endoscope was then advanced to the pylorus and the first and second portion of the duodenum, which appeared normal with no ulcerations or any active bleeding sources. We then turned our attention to achieving hemostasis. One of the bleeders was small and this was amenable to biopsy forceps and electrocautery with visualization of good hemostasis. The second one was slightly larger and a clip was placed with visualization of good hemostasis. Endoscope was then slowly withdrawn while taking a second look and suctioning of residual air with no additional findings. The patient tolerated the procedure well. We will continue him on a PPI acid supervisor shaving and splitting b.i.d. as well as add Carafate 1 gram q.i.d. He may also proceed with cardiac catheterization as well as anticoagulation as necessary. Job ID: [id number] DocumentID: [id number] Dictated Date: 04/16/2020 17:43:03 Manager Rfid Date: 04/16/2020 18:06:28 Dictated By: DELANEY MARIE MD MTDD
[2020-04-16] MEDS: NS IV 1000 ML 1,000 ML IV SCH (18:39)
[2020-04-16] MEDS ORDERED: fentaNYL INJECTION 100 MCG/2 ML AMP IVP ONE (18:45)
[2020-04-16] MEDS ORDERED: LIDOCAINE JELLY 2% 6 ML SYRINGE MM PRN (18:45)
[2020-04-16] MEDS ORDERED: MIDAZOLAM 5 MG/5 ML (VERSED) VIAL IV ONE (18:45)
[2020-04-16] MEDS ORDERED: NS IV 500 ML 500 ML IV PRN (18:45)
[2020-04-16] MEDS: SUCRALFATE 1 GM (CARAFATE) TAB PO SCH (20:13)
[2020-04-16] MEDS: PANTOPRAZOLE 40 MG (PROTONIX) VIAL IV SCH (20:13)
[2020-04-16] MEDS: inSUlin ASPART (NovoLOG) 1 UNIT/0.01 ML (CHARGE PER UNIT) SC SCH (20:21)
[2020-04-17] VITALS: BP 135/62
[2020-04-17] MEDS: NS IV 1000 ML 1,000 ML IV SCH ×2 (00:05→09:23)
[2020-04-17 03:48] VITALS: BP 148/68
[2020-04-17 05:00] LABS: HEMOGLOBIN 8.6 g/dL (13.3-17.7); WHITE BLOOD COUNT 12.9 10^3/uL (4.3-11.0)
[2020-04-17 05:12] LABS: ALBUMIN 3.5 GM/DL (3.2-4.5); POTASSIUM 4.1 MMOL/L (3.6-5.0)
[2020-04-17 05:13] LABS: CALCIUM 8.8 MG/DL (8.5-10.1)
[2020-04-17 05:14] LABS: TOTAL PROTEIN 6.4 GM/DL (6.4-8.2)
[2020-04-17 05:16] LABS: BILIRUBIN,TOTAL 0.4 MG/DL (0.1-1.0)
[2020-04-17] MEDS: SUCRALFATE 1 GM (CARAFATE) TAB PO SCH ×4 (05:16→21:11)
[2020-04-17] MEDS: inSUlin ASPART (NovoLOG) 1 UNIT/0.01 ML (CHARGE PER UNIT) SC SCH ×4 (05:16→20:58)
[2020-04-17 05:18] LABS: CREATININE SERUM 1.77 MG/DL (0.60-1.30)
--- NOTE | 2020-04-17 05:44 | Progress Note - Hospitalist ---
Subjective HPI/CC On Admission Date Seen by Provider: Apr 17, 2020 Time Seen by Provider: 10:00 CC: GIB with chest pain HPI: This is a 79yoWM clinic patient of [facility] who had a recent stent placed while visiting family 5 months ago in [place] who presents to the ER with chest pain indicative of unstable angina. Patient was found to have low hgb 6.7 and reports passing melena for the past 2 months. Eliquis was stopped and will not be restarted per Cardiology. Patient was given 2 units of blood last night and Dr Barrow ordered 2 more units to get hgb 10 due to unstable angina and in need of EGD today so cardiac cath can be preformed. Subjective/Events-last exam No chest pain Hgb improved Very upset he can't eat due to cath procedure Wants to leave AMA Very difficult to manage Objective Exam Vital Signs Vital Signs Date Time Temp Pulse Resp B/P (MAP) Pulse Ox O2 Delivery O2 Flow Rate FiO2 04/18/20 04:20 37.2 86 16 138/62 (87) 94 Room Air 04/16/20 17:30 10 Capillary Refill : Less Than 3 SecondsLess Than 3 Seconds General Appearance: No Apparent Distress, WD/WN Respiratory: Chest Non Tender, Lungs Clear, Normal Breath Sounds, No Accessory Muscle Use, No Respiratory Distress Cardiovascular: Regular Rate, Rhythm, No Edema, No Gallop, No JVD, No Murmur, Normal Peripheral Pulses Neurologic/Psychiatric: Alert, Oriented x3, No Motor/Sensory Deficits, Normal Mood/Affect Results/Procedures Lab Patient resulted labs reviewed. Assessment/Plan Assessment and Plan Assess & Plan/Chief Complaint Assessment: Unstable angina Severe symptomatic anemia s/p 4 units of blood transfusions CAD recent stent 5 months ago OAC now stopped indefinitely HTN HLP Plan: EGD today Cath tomorrow Monitor hgb 04/17/20: EGD revealed gastric ulcers actively bleeding Cardiac cath tomorrow Diagnosis/Problems Diagnosis/Problems (1) Unstable angina Status: Acute (2) Anemia Status: Acute Qualifiers: Anemia type: iron deficiency Iron deficiency anemia type: chronic blood loss Qualified Codes: D50.0 - Iron deficiency anemia secondary to blood loss (chronic) (3) Chest pain Status: Acute (4) Acute kidney injury Status: Acute Clinical Quality Measures AMI/AHF: ASA po Prior to arrival: Yes DVT/VTE Risk/Contraindication: Risk Factor Score Per Nursin RFS Level Per Nursing on Admit: 2=Moderate Other: GI BLEED TEJINDER LUNA DO Apr 17, 2020 05:44
[2020-04-17 08:00] VITALS: BP 128/54
[2020-04-17] MEDS: PANTOPRAZOLE 40 MG (PROTONIX) VIAL IV SCH ×2 (09:23→21:11)
[2020-04-17 12:00] VITALS: BP 142/67
--- NOTE | 2020-04-17 12:49 | NUR ---
RD ASSESSMENT PMHx: CAD; hypercholesterolemia; dementia; renal failure; chronic constipation; DM PT INTERACTION: Pt was awake and pleasant during nutrition assessment. Pt states current appetite is good. Note no meals have been recorded, and pt is currently NPO, per chart review. Pt states following a low-CHO diet at home, and has no issues with chewing/swallowing food. Pt states he wears dentures. Pt states no recent issues with nausea, vomiting, constipation, or diarrhea, and that his last BM was 04/13. Note pt not currently on bowel regimen per chart review. Pt states unsure of recent wt changes. Note unable to determine recent wt hx, per chart review. Pt states current DM management is "okay, I guess? I haven't taken any of my medications since I've been here." Note unable to determine recent HbA1c, per chart review. ABNORMAL NUTRITION-RELATED LAB VALUES LOW: HIGH: Cl 109; BUN 35; cr 1.77; glu 157; AST 37; Est. kcal needs: 3657-1507 kcal | 15-18 kcal/kg Est. Pro needs: 108-135 g Pro | 0.8-1.0 g Pro/kg PES STATEMENT: Inadequate oral intake (NI-2.1) related to NPO status as evidenced pt interview, and chart review. INTERVENTION: Note pt currently NPO, pending procedure. Would recommend diet advancement when medically able and as tolerated. Did not offer diet education on DM management at this time. Will attempt to offer prior to discharge. Will continue to follow and reassess as pt needs, intake, and status change. Argelia WHYTE, MS RD LD [phone] cell
[2020-04-17] MEDS: CLOPIDOGREL 75 MG (PLAVIX) TABLET PO SCH (13:30)
[2020-04-17] MEDS: ASPIRIN E.C. 81 MG (ECOTRIN) TAB PO SCH (13:30)
--- NOTE | 2020-04-17 13:37 | NUR ---
Dr Robbins ordered to dc npo status, heart healthy diet ordered
[2020-04-17] MEDS ORDERED: PHARMACY TO DOSE SQ SCH (14:15)
--- NOTE | 2020-04-17 14:43 | NUR ---
DR LOPEZ HERE, ORDERS GIVEN TO START LOVENOX FULL TREATMENT DOSE, AND HOME MEDICATIONS, PATIENT TO BE NPO AFTER MIDNIGHT FOR HEART CATH IN WITH DR LOPEZ.
--- NOTE | 2020-04-17 15:54 | Cardiology Progress Note ---
Cardiology SOAP Progress Note Subjective: No further chest pain. Objective: I&O/Vital Signs 04/18/20 04/19/20 04/19/20 04/19/20 23:58 00:00 00:00 01:00 Temp 37.3 36.8 Pulse 73 76 68 Resp 18 B/P (MAP) 157/69 174/83 (113) Pulse Ox 98 92 O2 Delivery NIV CPAP NIV CPAP O2 Flow Rate 2.00 04/19/20 04/19/20 04/19/20 04/19/20 01:00 02:00 03:00 03:37 Temp 36.2 Pulse 67 67 66 B/P (MAP) 117/60 (79) 117/53 (74) 118/58 (78) Pulse Ox 91 87 91 O2 Delivery NIV CPAP NIV CPAP NIV CPAP NIV CPAP 04/19/20 04/19/20 04/19/20 04/19/20 03:45 04:00 04:38 05:00 Temp 37.1 37.1 Pulse 59 68 63 Resp 18 B/P (MAP) 104/48 (66) 157/69 119/58 (78) Pulse Ox 91 98 91 O2 Delivery NIV CPAP NIV CPAP NIV CPAP O2 Flow Rate 2.00 04/19/20 04/19/20 04/19/20 04/19/20 06:00 06:15 06:30 06:45 Pulse 64 63 62 62 B/P (MAP) 131/65 (87) 131/65 (90) 130/64 (96) 127/65 (85) Pulse Ox 97 94 94 94 O2 Delivery NIV CPAP 04/19/20 04/19/20 04/19/20 04/19/20 07:00 07:00 07:15 07:30 Pulse 62 62 61 61 B/P (MAP) 131/62 (79) 120/60 (79) 121/63 (82) Pulse Ox 93 92 93 04/19/20 04/19/20 04/19/20 04/19/20 07:45 08:00 08:00 09:00 Pulse 61 60 63 B/P (MAP) 129/66 (88) 129/63 (87) 113/62 (79) Pulse Ox 96 92 93 O2 Delivery NIV CPAP 04/19/20 04/19/20 10:00 11:00 Pulse 58 63 B/P (MAP) 107/86 (91) 127/62 (89) Pulse Ox 94 94 O2 Delivery Nasal Cannula Nasal Cannula O2 Flow Rate 2.00 2.00 04/19/20 00:00 Intake Total 549 ml Output Total 1250 ml Balance -701 ml Weight (Pounds): 270 Weight (Ounces): 0.0 Weight (Calculated Kilograms): 122.940730 Constitutional: AAO x 3 Respiratory: chest is bilaterally symmetric, lungs clear to auscultation Cardiovascular: regular rate-rhythm, S1 and S2; No diastolic murmur, No sys tolic murmur Gastrointestional: soft, audible bowel sounds Extremities: normal range of motion, non-tender, normal inspection, no lower extremity edema bilateral Neurologic/Psychiatric: no motor/sensory deficits, alert, normal mood/affect, oriented x 3 Skin: normal color, warm/dry Results/Procedures: Labs Laboratory Tests 04/18/20 14:27: Prothrombin Time 16.1H, INR Comment 1.2 04/18/20 15:59: Glucometer 142H 04/18/20 19:35: Hemoglobin 9.0L, Hematocrit 29L, Activated Partial Thromboplast Time 42H, Magnesium Level 1.5L 04/18/20 20:12: Glucometer 157H 04/19/20 01:33: White Blood Count 12.4H, Red Blood Count 3.38L, Hemoglobin 8.4L, Hematocrit 28L, Mean Corpuscular Volume 82, Mean Corpuscular Hemoglobin 25, Mean Corpuscular Hemoglobin Concent 30L, Red Cell Distribution Width 18.6H, Platelet Count 236, Mean Platelet Volume 11.1, Immature Granulocyte % (Auto) 1, Neutrophils (%) (Auto) 82H, Lymphocytes (%) (Auto) 6L, Monocytes (%) (Auto) 11, Eosinophils (%) (Auto) 1, Basophils (%) (Auto) 0, Neutrophils # (Auto) 10.2H, Lymphocytes # (Auto) 0.7L, Monocytes # (Auto) 1.3H, Eosinophils # (Auto) 0.1, Basophils # (A uto) 0.0, Immature Granulocyte # (Auto) 0.1, Activated Partial Thromboplast Time 43H, Sodium Level 136, Potassium Level 3.9, Chloride Level 104, Carbon Dioxide Level 18L, Anion Gap 14, Blood Urea Nitrogen 29H, Creatinine 1.90H, Estimat Glomerular Filtration Rate 34, BUN/Creatinine Ratio 15, Glucose Level 206H, Calcium Level 8.6, Phosphorus Level 2.9, Magnesium Level 1.5L 04/19/20 05:51: Glucometer 194H 04/19/20 09:26: Activated Partial Thromboplast Time 67H 04/19/20 10:53: Glucometer 176H Microbiology 04/16/20 MRSA Screen - Final, Complete MRSA not isolated A/P: Assessment/Dx: Acute non-ST elevation myocardial infarctions Anemia, GI bleeding, acute renal failure Hypertension Plan: Acute non-ST elevation myocardial infarction, elevated troponin, active chest pain that has resolved after resolution of the anemia. The management is complex due to the fact that patient has severe anemia and cannot tolerate aggressive anticoagulation if I need to proceed with a cardiac catheterization or stenting. He is currently chest pain-free I will continue with conservative management and try to achieve hemoglobin over 10 prior to proceeding with a cardiac catheterization, possible cardiac catheterization tomorrow Severe anemia, probably GI loss, reporting occasional black stool. Received 4 units of packed RBCs. Dr. Aguirre consulted and endoscopy done. Acute on chronic renal failure, worsening renal function, receiving IV fluid and I will continue monitoring renal function prior to proceeding with cardiac catheterization. Coronary artery disease, status post CABG 3 in 1997 with GUTIERREZ to LAD, vein graft to left circumflex, vein graft to first diagonal. Most recent cardiac catheterization was done in June 2014 showing patent bypass graft, the [place] arteries are diseased proximally, right coronary artery is totally occluded which was not bypassed but receiving collaterals from the LAD system. Patient reports he underwent stent placement to one of his vein grafts approx months ago in [place], [place]. patient was on aspirin and Plavix, I am holding them only today prior to the cardiac catheterization in trying to achieve adequate improvement in his hemoglobin Congestive heart failure, improved, most recent EF 50 percent. Maintained on beta benito and ARB, Echo. Questionable PAF, maintained on Eliquis that was started approx 3 months ago. Eliquis was held. Patient cannot tolerate taking Eliquis, aspirin and Plavix at the same time Right bundle branch block, chronic. Continue to monitor Hypertension, restart home medication monitor blood pressure, hold losartan for now Hyperlipidemia, check lipid profile. Mild bilateral carotid artery stenosis, last carotid ultrasound was done in December 2018, continue to monitor Diabetes mellitus-managed by primary care physician Obesity, BMI 40-instructed on importance of diet and exercise. Thank you for your consultation. Please call me if you have any questions. Boy Robbins MD, FACP, FACC, FSCAI, FHRS, CCDS Interventional Cardiology Cardiac Electrophysiology Vascular Medicine and Endovascular Interventions Clinical Quality Measures AMI/AHF: ASA po Prior to arrival: Yes Juvencio ROBBINS MD Apr 17, 2020 15:54
[2020-04-17] MEDS: ENOXAPARIN 300 MG/3 ML (LOVENOX) MULTI-DOSE VIAL SQ SCH (15:56)
[2020-04-17 16:00] VITALS: BP 148/65
--- NOTE | 2020-04-17 16:05 | Physician Query Clarification ---
"Physician Query-General Query to Physician: The medical record reflects the following clinical scenario: History/Risk factors: CAD, HTN, Cardiac stent placed 5 months ago Clinical Findings: Chest pain, Troponin, 0.096 -> 9.500, ST depression noted on EKG Treatment: ASA, MS 4 mg, NTG, Cardiac Consult, plan for cardiac cath Question: Do you agree with the impression of (list the diagnosis/condition) per (Consulting physician)? If you agree, please document in Progress Notes or Discharge Summary. 1. Yes; will document NSTEMI present on admission in the Progress Notes 2. No; will continue to document Unstable Angina in the Progress Notes 3. Other; will document explanation of clinical findings 4. Clinically undetermined; no explanation for clinical findings Please remember a lack of response to the above will prompt a phone page by CDI/coding staff. In responding to this query, please exercise your independent professional judgment. The purpose of this communication is to more accurately reflect the complexity of your patients condition. The fact that a question is asked does not imply that any particular answer is desired or expected. Thank you for timely response to this clarification. Leila Alcala, MSN, RN RN Specialist-Clinical Doc Improvement CD -Health Info Mgmt Operations [address] [facility] t: [phone] | f: [phone] If you are unable to reach me at my extension, I may be working from home. Please contact me at [phone] PHYSICIAN RESPONSE: Based on the clinical findings in the record, please respond to the query above on this document as an addendum. Physician Response: Physician Response 1 If you have questions please contact: Lead Refiner: Ext: Thank you for your time and cooperation. Clinical Box Nailer/Lead Refiner This is a permanent part of the medical record LEILA ALCALA Apr 17, 2020 16:05 TEJINDER LUNA DO Apr 17, 2020 20:30"
[2020-04-17 19:00] VITALS: BP 154/70
[2020-04-17] MEDS: SIMvastatin 20 MG (ZOCOR) TAB PO SCH (21:10)
[2020-04-17] MEDS: meTOprolol TARTRATE 25 MG (LOPRESSOR) TABLET PO SCH (21:11)
[2020-04-17] MEDS: morphine INJ 4 MG/ML 1 ML (VIAL/SYRINGE) IV PRN (22:44)
[2020-04-18] VITALS (21 sets, daily range): BP systolic 109–172; BP diastolic 55–86
[2020-04-18] MEDS: morphine INJ 4 MG/ML 1 ML (VIAL/SYRINGE) IV PRN ×2 (01:29→18:12)
[2020-04-18] MEDS: ENOXAPARIN 300 MG/3 ML (LOVENOX) MULTI-DOSE VIAL SQ SCH (05:10)
[2020-04-18] MEDS: SUCRALFATE 1 GM (CARAFATE) TAB PO SCH ×4 (05:19→20:03)
[2020-04-18] MEDS: inSUlin ASPART (NovoLOG) 1 UNIT/0.01 ML (CHARGE PER UNIT) SC SCH ×4 (06:17→20:41)
[2020-04-18 06:23] LABS: BASOPHILS # (AUTO) 0.1 10^3/uL (0.0-0.1); BASOPHILS % (AUTO) 0 % (0-10); EOSINOPHILS # (AUTO) 0.4 10^3/uL (0.0-0.3); EOSINOPHILS % (AUTO) 4 % (0-10); HEMATOCRIT 28 % (40-54); HEMOGLOBIN 8.5 g/dL (13.3-17.7); LYMPHOCYTES # (AUTO) 1.8 10^3/uL (1.0-4.0); LYMPHOCYTES % (AUTO) 15 % (12-44); MEAN CORPUSCULAR HEMOGLOBIN 25 pg (25-34); MEAN CORPUSCULAR HGB CONC 30 g/dL (32-36); MEAN CORPUSCULAR VOLUME 82 fL (80-99); MEAN PLATELET VOLUME 11.2 fL (9.0-12.2); MONOCYTES # (AUTO) 1.8 10^3/uL (0.0-1.0); MONOCYTES % (AUTO) 15 % (0-12); NEUTROPHILS # (AUTO) 7.9 10^3/uL (1.8-7.8); NEUTROPHILS % (AUTO) 66 % (42-75); PLATELET COUNT 246 10^3/uL (130-400); WHITE BLOOD COUNT 12.1 10^3/uL (4.3-11.0)
[2020-04-18 06:36] LABS: ALBUMIN 3.7 GM/DL (3.2-4.5)
[2020-04-18 06:37] LABS: POTASSIUM 3.9 MMOL/L (3.6-5.0)
[2020-04-18 06:38] LABS: CALCIUM 8.8 MG/DL (8.5-10.1)
[2020-04-18 06:39] LABS: TOTAL PROTEIN 6.6 GM/DL (6.4-8.2)
[2020-04-18 06:41] LABS: BILIRUBIN,TOTAL 0.7 MG/DL (0.1-1.0)
[2020-04-18 06:42] LABS: CREATININE SERUM 1.75 MG/DL (0.60-1.30)
--- NOTE | 2020-04-18 07:26 | NUR ---
Notified Dr Robbins of elevated troponin. No new orders at this time.
[2020-04-18] MEDS: meTOprolol TARTRATE 25 MG (LOPRESSOR) TABLET PO SCH (08:39)
[2020-04-18] MEDS: ASPIRIN E.C. 81 MG (ECOTRIN) TAB PO SCH (08:39)
[2020-04-18] MEDS: CLOPIDOGREL 75 MG (PLAVIX) TABLET PO SCH (08:40)
[2020-04-18] MEDS: LOSARTAN 100 MG (COZAAR) TABLET PO SCH (08:40)
[2020-04-18] MEDS: PANTOPRAZOLE 40 MG (PROTONIX) VIAL IV SCH ×2 (08:40→20:04)
[2020-04-18] MEDS ORDERED: MIDAZOLAM 5 MG/5 ML (VERSED) VIAL ONE (11:04)
[2020-04-18] MEDS ORDERED: fentaNYL INJECTION 100 MCG/2 ML AMP ONE (11:04)
[2020-04-18] MEDS ORDERED: HEParin (CATH LAB) 2,000 ML IV ONE (11:04)
[2020-04-18] MEDS ORDERED: LIDOCAINE 1% INJ 20 ML 20 ML VIAL ONE (11:04)
[2020-04-18] MEDS ORDERED: NS IV 1000 ML 1,000 ML ONE (11:04)
--- NOTE | 2020-04-18 12:00 | NUR ---
THE PATIENT'S DAUGHTER VINOD WOULD LIKE TO BE CALLED REGARDING THE PLAN FOR HER FATHER AFTER THE HEART CATH. VINOD-DAUGHTER [phone]
[2020-04-18] MEDS ORDERED: AMIODARONE (BOLUS) 150 MG/3 ML IV ONE (12:29)
[2020-04-18] MEDS ORDERED: HEParin DRIP 25000 UNIT/500ML 500 ML IV ONE (12:58)
--- NOTE | 2020-04-18 13:02 | NUR ---
PATIENT'S BELONGINGS WERE TAKEN TO ICU BY PCT LUKE.
--- NOTE | 2020-04-18 13:06 | NUR ---
LEFT MESSAGE FOR DR LOPEZ TO CALL THE PATIENT'S DAUGHTER VINOD [phone] Addendum: 04/18/20 at 1307 by FLAIVA MENDOZA RN DR LOPEZ RESPONDED "OK" TO MESSAGE
[2020-04-18] MEDS: AMIODARONE INJECTION 450 MG in D5W IV SOLUTION (EXCEL) 250 ML IV SCH ×2 (13:10→23:16)
--- NOTE | 2020-04-18 13:30 | NUR ---
PT TO ROOM VIA BED ACCOMPANIED BY RESEARCH SCHOLAR STAFF, BEDSIDE REPORT RECEIVED. PT CONNECTED TO BEDSIDE MONITOR. PT ON AMIODARONE GTT STARTED AT 1310, HEPARIN GTT STARTED PER DR LOPEZ AT 800 UNITS/HR OR 16ML/HR. PT HAS DRSG TO RIGHT GROIN SITE.
[2020-04-18] MEDS ORDERED: HEParin DRIP 25000 UNIT/500ML 500 ML IV SCH (13:45)
--- NOTE | 2020-04-18 13:47 | NUR ---
REPORT GIVEN TO SENIOR DRAFTERNANCY NEVAREZ
--- NOTE | 2020-04-18 14:21 | Coronary Angiography Report ---
Coronary Angiography Report DATE OF PROCEDURE: 04/18/20 INDICATION: NSTEMI, NSVT PREOPERATIVE DIAGNOSIS: NSTEMI, NSVT POSTOPERATIVE DIAGNOSIS: Severe CAD, Patent grafts, No PCI done. HISTORY: This is a 79 year old gentleman with history of CAD, CABG, PCI, Acute on CKD. He presented with chest discomfort, GI bleeding and severe anemia. He received numerous transfusion. Significantly elevated troponin. Endoscopy should bleeding vessels requiring clips and cauterization by general surgery. Stable hemoglobin ~ 48 hours post endoscopy and no further bleeding therefore patient was cleared for coronary angiography and possible intervention. PROCEDURES PERFORMED: 1.Coronary angiography. 2.Left heart catheterization. 3. Graft angiography. 4. GUTIERREZ angiography. COMPLICATIONS: None. SPECIMENS: None. ESTIMATED BLOOD LOSS: 10 mL ANESTHESIA: Conscious sedation ANTICOAGULATION: IV heparin CONTRAST: 134 cc. FLUOROSCOPY: 11.1 minutes. FLOUROSCOPY DOSE: 1932 mgy. PROCEDURE DETAILS: The patient is a 79 male and was brought to the matlab developer after informed consent was taken. All the risks and complications were explained in detail; this included the risk of bleeding, vascular damage, stroke, DE and even . The patient was draped and prepped in the usual sterile fashion. Access was gained in the right femoral artery with a 5F sheath. Coronary angiography and LHC was done with JR4, JL4 catheter. FINDINGS: 1.Left main: Severe distal disease. 2.LAD: Occluded proximally. 3.Left circumflex artery: Occluded proximally. 4.RCA: Occluded proximally with faint filling distaly. 5.Left heart catheterization: LV 116/8mmhg, LVEDP 20mmhg, Aortic pressure 114/55mmhg. LV gram not done due to CKD. 6. Patent SVG to the OM1 and D1. Patent stent int he proximal segement and Mild disease in the mid segment of the SVG to D1. 7. Patent GUTIERREZ to the LAD with mild disease just distal to the distal anastomotic site. faint collaterals to the RCA. CONCLUSIONS: Severe occlusive left main and three vessel disease with patent grafts to LAD, D1 and OM1. RCA is not grafted with faint collaterals from the left. No PCI done. NSTEMI likely due to severe anemia and possible small or distal vessel disease. Aggressive medical therapy with aspirin, plavix and iv heparin x 48 hours. Also patient had numerous episodes of NSVT (monomorphic); therefore started on amiodarone bolus and infusion. Increase dose of metoprolol to 50mg bid. Boy Robbins MD, FACP, FACC, [facility] Interventional Cardiology Juvencio ROBBINS MD Apr 18, 2020 14:21
--- NOTE | 2020-04-18 14:21 | Cardiology Progress Note ---
Cardiology SOAP Progress Note Objective: I&O/Vital Signs 04/18/20 04/19/20 04/19/20 04/19/20 23:58 00:00 00:00 01:00 Temp 37.3 36.8 Pulse 73 76 68 Resp 18 B/P (MAP) 157/69 174/83 (113) Pulse Ox 98 92 O2 Delivery NIV CPAP NIV CPAP O2 Flow Rate 2.00 04/19/20 04/19/20 04/19/20 04/19/20 01:00 02:00 03:00 03:37 Temp 36.2 Pulse 67 67 66 B/P (MAP) 117/60 (79) 117/53 (74) 118/58 (78) Pulse Ox 91 87 91 O2 Delivery NIV CPAP NIV CPAP NIV CPAP NIV CPAP 04/19/20 04/19/20 04/19/20 04/19/20 03:45 04:00 04:38 05:00 Temp 37.1 37.1 Pulse 59 68 63 Resp 18 B/P (MAP) 104/48 (66) 157/69 119/58 (78) Pulse Ox 91 98 91 O2 Delivery NIV CPAP NIV CPAP NIV CPAP O2 Flow Rate 2.00 04/19/20 04/19/20 04/19/20 04/19/20 06:00 06:15 06:30 06:45 Pulse 64 63 62 62 B/P (MAP) 131/65 (87) 131/65 (90) 130/64 (96) 127/65 (85) Pulse Ox 97 94 94 94 O2 Delivery NIV CPAP 04/19/20 04/19/20 04/19/20 04/19/20 07:00 07:00 07:15 07:30 Pulse 62 62 61 61 B/P (MAP) 131/62 (79) 120/60 (79) 121/63 (82) Pulse Ox 93 92 93 04/19/20 04/19/20 04/19/20 04/19/20 07:45 08:00 08:00 09:00 Pulse 61 60 63 B/P (MAP) 129/66 (88) 129/63 (87) 113/62 (79) Pulse Ox 96 92 93 O2 Delivery NIV CPAP 04/19/20 04/19/20 10:00 11:00 Pulse 58 63 B/P (MAP) 107/86 (91) 127/62 (89) Pulse Ox 94 94 O2 Delivery Nasal Cannula Nasal Cannula O2 Flow Rate 2.00 2.00 04/19/20 00:00 Intake Total 549 ml Output Total 1250 ml Balance -701 ml Weight (Pounds): 270 Weight (Ounces): 0.0 Weight (Calculated Kilograms): 122.691049 Results/Procedures: Labs Laboratory Tests 04/18/20 14:27: Prothrombin Time 16.1H, INR Comment 1.2 04/18/20 15:59: Glucometer 142H 04/18/20 19:35: Hemoglobin 9.0L, Hematocrit 29L, Activated Partial Thromboplast Time 42H, Magnesium Level 1.5L 04/18/20 20:12: Glucometer 157H 04/19/20 01:33: White Blood Count 12.4H, Red Blood Count 3.38L, Hemoglobin 8.4L, Hematocrit 28L, Mean Corpuscular Volume 82, Mean Corpuscular Hemoglobin 25, Mean Corpuscular Hemoglobin Concent 30L, Red Cell Distribution Width 18.6H, Platelet Count 236, Mean Platelet Volume 11.1, Immature Granulocyte % (Auto) 1, Neutrophils (%) (Auto) 82H, Lymphocytes (%) (Auto) 6L, Monocytes (%) (Auto) 11, Eosinophils (%) (Auto) 1, Basophils (%) (Auto) 0, Neutrophils # (Auto) 10.2H, Lymphocytes # (Auto) 0.7L, Monocytes # (Auto) 1.3H, Eosinophils # (Auto) 0.1, Basophils # (Auto) 0.0, Immature Granulocyte # (Auto) 0.1, Activated Partial Thromboplast Time 43H, Sodium Level 136, Potassium Level 3.9, Chloride Level 104, Carbon Dioxide Level 18L, Anion Gap 14, Blood Urea Nitrogen 29H, Creatinine 1.90H, Estimat Glomerular Filtration Rate 34, BUN/Creatinine Ratio 15, Glucose Level 206H, Calcium Level 8.6, Phosphorus Level 2.9, Magnesium Level 1.5L 04/19/20 05:51: Glucometer 194H 04/19/20 09:26: Activated Partial Thromboplast Time 67H 04/19/20 10:53: Glucometer 176H Microbiology 04/16/20 MRSA Screen - Final, Complete MRSA not isolated A/P: Assessment/Dx: Acute non-ST elevation myocardial infarctions Anemia, GI bleeding, acute renal failure Hypertension Plan: Acute non-ST elevation myocardial infarction, elevated troponin, active chest pain that has resolved after resolution of the anemia. The management is complex due to the fact that patient has severe anemia and cannot tolerate aggressive anticoagulation if I need to proceed with a cardiac catheterization or stenting. He is currently chest pain-free I will continue with conservative management and try to achieve hemoglobin over 10 prior to proceeding with a cardiac catheterization, Informed consent taken from the patient including the risk of . cardiac catheterization today Severe anemia, probably GI loss, reporting occasional black stool. Received 4 units of packed RBCs. Dr. Aguirre consulted and endoscopy done. Acute on chronic renal failure, worsening renal function, receiving IV fluid and I will continue monitoring renal function prior to proceeding with cardiac catheterization. Coronary artery disease, status post CABG 3 in 1997 with GUTIERREZ to LAD, vein graft to left circumflex, vein graft to first diagonal. Most recent cardiac catheterization was done in June 2014 showing patent bypass graft, the [place] arteries are diseased proximally, right coronary artery is totally occluded which was not bypassed but receiving collaterals from the LAD system. Patient reports he underwent stent placement to one of his vein grafts approx months ago in [place], [place]. We will restart aspirin and plavix. Congestive heart failure, improved, most recent EF 50 percent. Maintained on beta benito and ARB, Echo. Questionable PAF, maintained on Eliquis that was started approx 3 months ago. Eliquis was held. Patient cannot tolerate taking Eliquis, aspirin and Plavix at the same time. heparin for now; lobsterman therapy likely with plavix and eliquis. Right bundle branch block, chronic. Continue to monitor Hypertension, restarted home medication Hyperlipidemia, check lipid profile. Mild bilateral carotid artery stenosis, last carotid ultrasound was done in December 2018, continue to monitor Diabetes mellitus-managed by primary care physician Obesity, BMI 40-instructed on importance of diet and exercise. Thank you for your consultation. Please call me if you have any questions. Boy Robbins MD, FACP, FACC, FSCAI, FHRS, CCDS Interventional Cardiology Cardiac Electrophysiology Vascular Medicine and Endovascular Interventions Clinical Quality Measures AMI/AHF: ASA po Prior to arrival: Yes Juvencio ROBBINS MD Apr 18, 2020 14:21
--- NOTE | 2020-04-18 14:22 | Cardiac Procedure Note-CS/ASA ---
Pre-Procedure Note Pre-Op Procedure Note H&P Reviewed The H&P was reviewed, patient examined and no changes noted. Date H&P Reviewed: Apr 18, 2020 Time H&P Reviewed: 11:30 Conscious Sedation Pre-Proced Time 11:30 ASA Score 3 For ASA 3 and 4: Consider anesthesia and medical clearance. Also, for patients with a history of failed moderate sedation consider anesthesia. Airway Lungs Heart ASA score ASA 1: a normal healthy patient ASA 2: a patient with a mild systemic disease (mid diabetes, controlled hypertension, obesity ASA 3: a patient with a severe systemic disease that limits activity (angina, COPD, prior Myocardial infarction) ASA 4: a patient with an incapacitating disease that is a constant threat to life (CHF, renal failure) ASA 5: a moribund patient not expected to survive 24 hrs. (ruptured aneurysm) ASA 6: a declared brain- patient whose organs are being harvested. For emergent operations, add the letter E after the classification Mallampati Classification Grade 1 Sedation Plan Analgesia, Amnesia, Plan communicated to team members, Discussed options with patient/fam, Discussed risks with patient/fam The patient is an appropriate candidate to undergo the planned procedure, sedation, and anesthesia. The patient immediately re-assessed prior to indication. Juvencio LOPEZ MD Apr 18, 2020 14:22
[2020-04-18] MEDS ORDERED: PATIENT MAY USE OWN MEDS, ALL PO SCH (14:30)
[2020-04-18 14:48] LABS: INR 1.2 (0.8-1.4); PROTHROMBIN TIME PATIENT 16.1 SEC (12.2-14.7)
[2020-04-18] MEDS: SIMvastatin 20 MG (ZOCOR) TAB PO SCH (20:04)
[2020-04-18] MEDS: meTOprolol TARTRATE 50 MG (LOPRESSOR) TAB PO SCH (20:04)
[2020-04-18] MEDS: HEParin 1000 UNIT/ML (10ML VIAL) FOR BOLUS IV PRN (20:39)
[2020-04-18] MEDS: NS IV 1000 ML 1,000 ML IV SCH (20:41)
[2020-04-18] MEDS ORDERED: AMIODARONE 450 MG/9 ML (CORDARONE) VIAL IV ONE (22:57)
[2020-04-18] MEDS ORDERED: D5W IV SOLUTION (EXCEL) 250 ML IV ONE (22:58)
[2020-04-18] MEDS ORDERED: DexMEDEtomidine PRE MIX 100 ML IV ONE (23:51)
[2020-04-18] MEDS: DexMEDEtomidine PRE MIX 100 ML IV SCH (23:58)
[2020-04-19] VITALS (31 sets, daily range): BP systolic 104–174; BP diastolic 48–105
[2020-04-19] MEDS: NS IV 1000 ML 1,000 ML IV SCH ×4 (00:01→22:25)
[2020-04-19 02:30] LABS: BASOPHILS % (AUTO) 0 % (0-10); EOSINOPHILS # (AUTO) 0.1 10^3/uL (0.0-0.3); EOSINOPHILS % (AUTO) 1 % (0-10); HEMATOCRIT 28 % (40-54); HEMOGLOBIN 8.4 g/dL (13.3-17.7); LYMPHOCYTES # (AUTO) 0.7 10^3/uL (1.0-4.0); LYMPHOCYTES % (AUTO) 6 % (12-44); MEAN CORPUSCULAR HEMOGLOBIN 25 pg (25-34); MEAN CORPUSCULAR HGB CONC 30 g/dL (32-36); MEAN CORPUSCULAR VOLUME 82 fL (80-99); MEAN PLATELET VOLUME 11.1 fL (9.0-12.2); MONOCYTES # (AUTO) 1.3 10^3/uL (0.0-1.0); MONOCYTES % (AUTO) 11 % (0-12); NEUTROPHILS # (AUTO) 10.2 10^3/uL (1.8-7.8); NEUTROPHILS % (AUTO) 82 % (42-75); PLATELET COUNT 236 10^3/uL (130-400); WHITE BLOOD COUNT 12.4 10^3/uL (4.3-11.0)
[2020-04-19 02:40] LABS: POTASSIUM 3.9 MMOL/L (3.6-5.0)
[2020-04-19 02:41] LABS: CALCIUM 8.6 MG/DL (8.5-10.1)
[2020-04-19 02:46] LABS: CREATININE SERUM 1.9 MG/DL (0.60-1.30); PHOSPHORUS 2.9 MG/DL (2.3-4.7)
[2020-04-19 02:48] LABS: MAGNESIUM 1.5 MG/DL (1.6-2.4)
[2020-04-19] MEDS: POTASSIUM CL 10MEQ/50ML IVPB 50 ML IV SCH (03:24)
[2020-04-19] MEDS: KCL 20 MEQ TAB (K-DUR) PO SCH (03:25)
[2020-04-19] MEDS: MAGNESIUM 1 GM/100 ML IVPB 100 ML IV SCH ×3 (03:25→06:58)
[2020-04-19] MEDS: DexMEDEtomidine PRE MIX 100 ML IV SCH (04:38)
[2020-04-19] MEDS: HEParin 1000 UNIT/ML (10ML VIAL) FOR BOLUS IV PRN ×2 (04:38→23:55)
--- NOTE | 2020-04-19 05:32 | Pulmonary Consultation ---
History of Present Illness History of Present Illness Date Seen by Provider: Apr 19, 2020 Time Seen by Provider: 05:27 Date of Admission Reason for Visit: chest pain Allergies and Home Medications Allergies Coded Allergies: No Known Drug Allergies (Unverified , 12/19/12) Home Medications Apixaban 5 Mg Tablet, 5 MG PO BID, (Reported) Ascorbic Acid 1,000 Mg Tablet, 1,000 MG PO DAILY, (Reported) Aspirin 81 Mg Tablet.dr, 81 MG PO DAILY, (Reported) Clopidogrel Bisulfate 75 Mg Tablet, 75 MG PO DAILY, (Reported) Gemfibrozil 600 Mg Tablet, 600 MG PO BID, (Reported) Hydrochlorothiazide 25 Mg Tablet, 25 MG PO DAILY, (Reported) Insulin Aspart 100 Unit/1 Ml Susp, 20 UNIT SQ BID, (Reported) Insulin Glargine,Hum.rec.anlog 100 Unit/1 Ml Insuln.pen, 70 UNIT SQ BID, (Reported) Losartan Potassium 100 Mg Tablet, 100 MG PO DAILY, (Reported) Lovastatin 40 Mg Tablet, 40 MG PO HS, (Reported) Metoprolol Tartrate 25 Mg Tablet, 12.5 MG PO BID, (Reported) Multivitamin 1 Each Tablet, 1 TAB PO DAILY, (Reported) Nitroglycerin 0.4 Mg Tab.subl, 0.4 MG SL NEEDED PRN for CHEST PAIN (ANGINA) 1 tablet sublingual as needed for chest pain. May repeat every 5 minutes x 3 doses Prescribed by: YAMILET KASPER on 04/10/20 1428 Potassium Gluconate 99 Mg Tablet, 99 MG PO DAILY, (Reported) Vitamin B Complex & Vit C No.4 150 Mg Tablet, 150 MG PO DAILY, (Reported) Past Wdvwgsw-Xsnlcc-Thlsbb Hx Past Med/Social Hx: Reviewed Nursing Past Med/Soc Hx, Reviewed and Corrections made Patient Social History Alcohol Use: Occasionally Uses Alcohol Beverage of Choice: Beer Recreational Drug Use: No Smoking Status: Former Smoker Former Smoker, Quit: September 03, 1996 Recent Foreign Travel: No Contact w/Someone Who Travel: No Recent Infectious Disease Expo: No Recent Hopitalizations: Yes Physical Abuse: No Sexual Abuse: No Mistreated: No Fear: No Immunizations Up To Date Tetanus Booster (TDap): More than 5yrs Date of Pneumonia Vaccine: Jul 24, 2011 Date of Influenza Vaccine: Mar 02, 2020 Seasonal Allergies Seasonal Allergies: No Past Medical History Surgeries: Yes CABG, Joint Replacement, Orthopedic Respiratory: Yes Sleep Apnea Currently Using CPAP: Yes Currently Using BIPAP: No Cardiac: Yes Coronary Artery Disease, High Cholesterol, Hypertension Neurological: Yes Dementia Reproductive Disorders: No Sexually Transmitted Disease: No HIV/AIDS: No Genitourinary: No Renal Failure Gastrointestinal: Yes Chronic Constipation Musculoskeletal: Yes Degenerate Disk Disease Endocrine: Yes Diabetes, Insulin dep HEENT: No Cancer: No Psychosocial: Yes Anxiety, Depression Integumentary: No Blood Disorders: No Adverse Reaction/Blood Tranf: No Family Medical History No Pertinent Family Hx, Diabetes Review of Systems Time Seen by Provider: 05:27 Sepsis Event Evaluation Height, Weight, BMI Height: 6'0.00" Weight: 270lbs. 0.0oz. 122.424353to; 41.69 BMI Method:Stated Exam Exam Vital Signs Date Time Temp Pulse Resp B/P (MAP) Pulse Ox O2 Delivery O2 Flow Rate FiO2 04/19/20 05:00 63 119/58 (78) 91 NIV CPAP 04/19/20 04:38 37.1 68 18 157/69 98 2.00 04/19/20 04:00 59 104/48 (66) 91 NIV CPAP 04/19/20 03:45 37.1 NIV CPAP 04/19/20 03:37 36.2 NIV CPAP 04/19/20 03:00 66 118/58 (78) 91 NIV CPAP 04/19/20 02:00 67 117/53 (74) 87 NIV CPAP 04/19/20 01:00 67 117/60 (79) 91 NIV CPAP 04/19/20 01:00 68 04/19/20 00:00 36.8 NIV CPAP 04/19/20 00:00 76 174/83 (113) 92 NIV CPAP 04/18/20 23:58 37.3 73 18 157/69 98 2.00 04/18/20 23:00 73 157/69 (98) 98 NIV CPAP 04/18/20 22:00 84 160/77 (104) 95 NIV CPAP 04/18/20 21:00 79 172/73 (106) 95 NIV CPAP 04/18/20 20:06 37.3 77 18 166/68 (100) 94 NIV CPAP 2.00 04/18/20 20:00 2 NIV CPAP 04/18/20 20:00 74 166/68 (100) 93 NIV CPAP 04/18/20 19:00 73 04/18/20 19:00 73 150/86 (107) 92 NIV CPAP 04/18/20 17:00 79 128/59 (82) 95 NIV CPAP 04/18/20 16:00 66 128/62 (87) 98 04/18/20 15:53 36.8 04/18/20 15:45 96 04/18/20 15:30 65 112/57 (83) 96 04/18/20 15:15 61 96 04/18/20 15:00 66 118/58 (83) 96 Room Air 04/18/20 14:45 64 110/57 (73) 91 04/18/20 14:30 66 120/61 (83) 98 04/18/20 14:15 64 109/57 (84) 04/18/20 14:00 64 112/62 (79) Room Air 04/18/20 13:45 64 116/55 (69) Room Air 04/18/20 13:30 67 128/71 (99) Room Air 04/18/20 13:30 37.1 65 20 96 Room Air 04/18/20 13:15 66 120/59 (85) Room Air 04/18/20 11:45 36.8 68 20 126/58 (80) 94 Room Air 04/18/20 08:00 Room Air 04/18/20 07:20 37.8 81 16 151/68 (95) 93 Room Air 04/18/20 07:00 75 I & O 04/19/20 07:00 Intake Total 649 ml Output Total 1500 ml Balance -851 ml Height & Weight Height: 6'0.00" Weight: 270lbs. 0.0oz. 122.438069ck; 41.69 BMI Method:Stated General Appearance: No Apparent Distress, WD/WN HEENT: PERRL/EOMI, Normal ENT Inspection, Pharynx Normal, Moist Mucous Membranes Neck: Full Range of Motion, Normal Inspection, Non Tender Respiratory: Chest Non Tender, Lungs Clear, Normal Breath Sounds, No Accessory Muscle Use, No Respiratory Distress Cardiovascular: Regular Rate, Rhythm, No Edema, No Gallop, No JVD, No Murmur, Normal Peripheral Pulses Capillary Refill: Less Than 3 Seconds Extremity: Normal Capillary Refill, Normal Inspection, Normal Range of Motion, Non Tender, No Calf Tenderness, No Pedal Edema Neurologic/Psychiatric: Alert, Oriented x3, No Motor/Sensory Deficits, Normal Mood/Affect Skin: Normal Color, Warm/Dry Lymphatic: No Adenopathy Results Lab Laboratory Tests 04/18/20 05:30 04/18/20 19:35 04/19/20 01:33 Assessment/Plan Assessment/Plan Runs of Vtach while on 4th s/p heart cath 04/18 - no stents placed -cardiology following -Amiodarone and hep gtts [facility] -Cardiology following Psychosis with hx of dementia -Currently on Precedex -Start Risperadol Renal failure -Monitor -Currently on NS at 100cc/hr Anemia with PUD s/p EGD -S/p 4 total units of PRBC -Protonix -Surgery is following Hypomag -Replace CAD RUBY FALK DO Apr 19, 2020 05:32
[2020-04-19] MEDS: SUCRALFATE 1 GM (CARAFATE) TAB PO SCH ×4 (05:46→20:13)
[2020-04-19] MEDS: inSUlin ASPART (NovoLOG) 1 UNIT/0.01 ML (CHARGE PER UNIT) SC SCH ×4 (06:05→22:23)
--- NOTE | 2020-04-19 07:28 | Progress Note - Hospitalist ---
Subjective HPI/CC On Admission Date Seen by Provider: Apr 19, 2020 Time Seen by Provider: 11:00 CC: GIB with chest pain HPI: This is a 79yoWM clinic patient of [facility] who had a recent stent placed while visiting family 5 months ago in [place] who presents to the ER with chest pain indicative of unstable angina. Patient was found to have low hgb 6.7 and reports passing melena for the past 2 months. Eliquis was stopped and will not be restarted per Cardiology. Patient was given 2 units of blood last night and Dr Barrow ordered 2 more units to get hgb 10 due to unstable angina and in need of EGD today so cardiac cath can be preformed. Subjective/Events-last exam Patient on Heparin drip Cath revealed no significant definite lesion so no intervention V-tach noted so on Amio drip Conferred with Dr Robbins Review of Systems General: Fatigue Objective Exam Vital Signs Vital Signs Date Time Temp Pulse Resp B/P (MAP) Pulse Ox O2 Delivery O2 Flow Rate FiO2 04/20/20 04:00 65 127/94 (105) 97 Room Air 04/20/20 03:38 36.9 04/19/20 18:00 20 04/19/20 11:00 Capillary Refill : Less Than 3 SecondsLess Than 3 Seconds General Appearance: No Apparent Distress, WD/WN, Chronically ill Respiratory: Chest Non Tender, Lungs Clear, Normal Breath Sounds, No Accessory Muscle Use, No Respiratory Distress Cardiovascular: Regular Rate, Rhythm, No Edema, No Gallop, No JVD, No Murmur, Normal Peripheral Pulses Neurologic/Psychiatric: Alert, Oriented x3, No Motor/Sensory Deficits, Normal Mood/Affect Results/Procedures Lab Laboratory Tests 04/20/20 03:26 Patient resulted labs reviewed. Assessment/Plan Assessment and Plan Assess & Plan/Chief Complaint Assessment: Unstable angina with elevated troponin but no intervention on cath placed on Hep drip Severe symptomatic anemia Gastric ulcer bleed on EGD s/p 4 units of blood transfusions CAD recent stent 5 months ago OAC now stopped indefinitely HTN HLP V-tach episodes on Amio drip Plan: EGD today Cath tomorrow Monitor hgb 04/17/20: EGD revealed gastric ulcers actively bleeding Cardiac cath tomorrow 04/19/20: Heparin drip due to elevated troponin but no intervention on cath since no definite lesion Amio drip due to V tach Diagnosis/Problems Diagnosis/Problems (1) Unstable angina Status: Acute (2) Anemia Status: Acute Qualifiers: Anemia type: iron deficiency Iron deficiency anemia type: chronic blood loss Qualified Codes: D50.0 - Iron deficiency anemia secondary to blood loss (chronic) (3) Chest pain Status: Acute (4) Acute kidney injury Status: Acute Clinical Quality Measures AMI/AHF: ASA po Prior to arrival: Yes DVT/VTE Risk/Contraindication: Risk Factor Score Per Nursin RFS Level Per Nursing on Admit: 2=Moderate Other: GI BLEED TEJINDER LUNA DO Apr 19, 2020 07:28
--- NOTE | 2020-04-19 08:18 | Diagnostic Imaging Report ---
EXAMINATION: Portable erect AP chest at 2:45 AM INDICATION: Chest pain The cardiomegaly and the sternotomy wires and surgical clips noted on the prior exam of 04/15/2020 are again evident and no different. The lungs remain generally clear. There is still no sign of failure, pneumonia or pleural effusion to indicate an acute abnormality. The mediastinum is not widened. The osseous structures are intact. IMPRESSION: There is cardiomegaly and evidence of prior cardiac surgery, but there is no sign of an acute cardiopulmonary abnormality. When compared to the prior study, there has been no significant change. Dictated by: Dictated on workstation # [id number]
[2020-04-19] MEDS: ASPIRIN E.C. 81 MG (ECOTRIN) TAB PO SCH (08:38)
[2020-04-19] MEDS: risperiDONE 1 MG (RisperDAL) TAB PO SCH ×2 (08:38→20:14)
[2020-04-19] MEDS: PANTOPRAZOLE 40 MG (PROTONIX) VIAL IV SCH ×2 (08:38→20:14)
[2020-04-19] MEDS: LOSARTAN 100 MG (COZAAR) TABLET PO SCH (08:39)
[2020-04-19] MEDS: meTOprolol TARTRATE 50 MG (LOPRESSOR) TAB PO SCH ×2 (08:39→20:13)
[2020-04-19] MEDS ORDERED: CLOPIDOGREL 75 MG (PLAVIX) TABLET PO SCH (09:00)
--- NOTE | 2020-04-19 12:18 | Cardiology Progress Note ---
Cardiology SOAP Progress Note Subjective: No chest pain Objective: I&O/Vital Signs 04/19/20 04/19/20 04/19/20 04/19/20 04:00 04:38 05:00 06:00 Temp 37.1 Pulse 59 68 63 64 Resp 18 B/P (MAP) 104/48 (66) 157/69 119/58 (78) 131/65 (87) Pulse Ox 91 98 91 97 O2 Delivery NIV CPAP NIV CPAP NIV CPAP O2 Flow Rate 2.00 04/19/20 04/19/20 04/19/20 04/19/20 06:15 06:30 06:45 07:00 Pulse 63 62 62 62 B/P (MAP) 131/65 (90) 130/64 (96) 127/65 (85) 131/62 (79) Pulse Ox 94 94 94 93 04/19/20 04/19/20 04/19/20 04/19/20 07:00 07:15 07:30 07:45 Pulse 62 61 61 61 B/P (MAP) 120/60 (79) 121/63 (82) 129/66 (88) Pulse Ox 92 93 96 04/19/20 04/19/20 04/19/20 04/19/20 08:00 08:00 09:00 10:00 Pulse 60 63 58 B/P (MAP) 129/63 (87) 113/62 (79) 107/86 (91) Pulse Ox 92 93 94 O2 Delivery NIV CPAP Room Air O2 Flow Rate 04/19/20 04/19/20 04/19/20 04/19/20 11:00 12:00 12:00 13:00 Temp 38.0 Pulse 63 63 63 B/P (MAP) 127/62 (89) 111/88 (96) Pulse Ox 94 95 O2 Delivery Room Air Room Air Room Air O2 Flow Rate 04/19/20 04/19/20 04/19/20 13:00 14:44 15:00 Pulse 65 68 68 B/P (MAP) 128/59 (82) 132/79 (96) 143/70 (94) Pulse Ox 95 94 93 O2 Delivery Room Air Room Air Room Air 04/19/20 00:00 Intake Total 549 ml Output Total 1250 ml Balance -701 ml Weight (Pounds): 270 Weight (Ounces): 0.0 Weight (Calculated Kilograms): 122.628057 Constitutional: AAO x 3 Respiratory: chest is bilaterally symmetric, lungs clear to auscultation Cardiovascular: regular rate-rhythm, S1 and S2; No diastolic murmur, No systolic murmur Gastrointestional: soft, audible bowel sounds Extremities: normal range of motion, non-tender, normal inspection, no lower extremity edema bilateral Neurologic/Psychiatric: no motor/sensory deficits, alert, normal mood/affect, oriented x 3 Skin: normal color, warm/dry Results/Procedures: Labs Laboratory Tests 04/18/20 15:59: Glucometer 142H 04/18/20 19:35: Hemoglobin 9.0L, Hematocrit 29L, Activated Partial Thromboplast Time 42H, Magnesium Level 1.5L 04/18/20 20:12: Glucometer 157H 04/19/20 01:33: Hemoglobin 8.4L, Hematocrit 28L, Activated Partial Thromboplast Time 43H, Magnesium Level 1.5L, White Blood Count 12.4H, Red Blood Count 3.38L, Mean Corpuscular Volume 82, Mean Corpuscular Hemoglobin 25, Mean Corpuscular Hemoglobin Concent 30L, Red Cell Distribution Width 18.6H, Platelet Count 236, Mean Platelet Volume 11.1, Immature Granulocyte % (Auto) 1, Neutrophils (%) (Auto) 82H, Lymphocytes (%) (Auto) 6L, Monocytes (%) (Auto) 11, Eosinophils (%) (Auto) 1, Basophils (%) (Auto) 0, Neutrophils # (Auto) 10.2H, Lymphocytes # (Auto) 0.7L, Monocytes # (Auto) 1.3H, Eosinophils # (Auto) 0.1, Basophils # (Auto) 0.0, Immature Granulocyte # (Auto) 0.1, Sodium Level 136, Potassium Level 3.9, Chloride Level 104, Carbon Dioxide Level 18L, Anion Gap 14, Blood Urea Nitrogen 29H, Creatinine 1.90H, Estimat Glomerular Filtration Rate 34, BUN/Creatinine Ratio 15, Glucose Level 206H, Calcium Level 8.6, Phosphorus Level 2.9 04/19/20 05:51: Glucometer 194H 04/19/20 09:26: Activated Partial Thromboplast Time 67H 04/19/20 10:53: Glucometer 176H 12/20/20 15:32: Microbiology 04/16/20 MRSA Screen - Final, Complete MRSA not isolated A/P: Assessment/Dx: Acute non-ST elevation myocardial infarction, Monomorphic NSVT, Anemia, GI bleeding, acute renal failure Hypertension Plan: Acute non-ST elevation myocardial infarction, elevated troponin, active chest pain that has resolved after resolution of the anemia. The management is complex due to the fact that patient has severe anemia and cannot tolerate agg ressive anticoagulation if I need to proceed with a cardiac catheterization or stenting. He is currently chest pain-free I will continue with conservative management and try to achieve hemoglobin over 10 prior to proceeding with a cardiac catheterization, Informed consent taken from the patient including the risk of . cardiac catheterization yesterday showed severe LM and 3VD with patent grafts. No PCI done. Occluded non-grafted RCA. NSTEMI either due to severe anemia and/or small vessel disease. Aggressive medical therapy including aspirin, plavix and IV heparin x 48 hours. ferry terminal agent treatment with plavix and eliquis (AF). NSVT - Amiodarone bolus and infusion. once infusion is completed start Amiodarone 200mg bid. Metoprolol increased to 50 bid. No further ventricular ectopy overnight. Severe anemia, probably GI loss, reporting occasional black stool. Received 4 units of packed RBCs. Dr. Aguirre consulted and endoscopy done. Acute on chronic renal failure, worsening renal function, receiving IV fluid and I will continue monitoring renal function prior to proceeding with cardiac catheterization. Coronary artery disease, status post CABG 3 in 1997 with GUTIERREZ to LAD, vein graft to left circumflex, vein graft to first diagonal. Most recent cardiac catheterization was done in June 2014 showing patent bypass graft, the bois forte arteries are diseased proximally, right coronary artery is totally occluded which was not bypassed but receiving collaterals from the LAD system. Patient reports he underwent stent placement to one of his vein grafts approx months ago in [place], [place]. We will restart aspirin and plavix. Congestive heart failure, improved, most recent EF 50 percent. Maintained on beta benito and ARB, Echo. Questionable PAF, maintained on Eliquis that was started approx 3 months ago. Eliquis was held. Patient cannot tolerate taking Eliquis, aspirin and Plavix at the same time. heparin for now; terminal manager therapy likely with plavix and eliquis. Right bundle branch block, chronic. Continue to monitor Hypertension, restarted home medication Hyperlipidemia, check lipid profile. Mild bilateral carotid artery stenosis, last carotid ultrasound was done in December 2018, continue to monitor Diabetes mellitus-managed by primary care physician Obesity, BMI 40-instructed on importance of diet and exercise. Dr Jacobs to take over care tomorrow morning. Thank you for your consultation. Please call me if you have any questions. Boy Robbins MD, FACP, FACC, FSCAI, FHRS, CCDS Interventional Cardiology Cardiac Electrophysiology Vascular Medicine and Endovascular Interventions Clinical Quality Measures AMI/AHF: ASA po Prior to arrival: Yes Juvencio ROBBINS MD Apr 19, 2020 12:18
[2020-04-19] MEDS: morphine INJ 4 MG/ML 1 ML (VIAL/SYRINGE) IV PRN (16:24)
[2020-04-19] MEDS: SIMvastatin 20 MG (ZOCOR) TAB PO SCH (20:13)
[2020-04-19] MEDS: AMIODARONE 200 MG (CORDARONE) TAB PO SCH (20:14)
[2020-04-19] MEDS: morphine INJ 4 MG/ML 1 ML (VIAL/SYRINGE) IVP PRN (20:14)
[2020-04-20] VITALS (15 sets, daily range): BP systolic 115–178; BP diastolic 53–94
--- NOTE | 2020-04-20 00:02 | NUR ---
THIS RN NOTIFIED TELE-ICU OF PATIENT'S TEMPERATURE OF 38.4. NEW ORDER RECEIVED AT THIS TIME, SEE EMAR AND ORDER HX.
[2020-04-20] MEDS ORDERED: ACETAMINOPHEN 325 MG TABLET ONE (00:33)
[2020-04-20] MEDS: morphine INJ 4 MG/ML 1 ML (VIAL/SYRINGE) IVP PRN ×3 (00:39→08:51)
[2020-04-20] MEDS: ACETAMINOPHEN 325 MG TABLET PO PRN ×3 (00:40→20:02)
[2020-04-20 04:00] LABS: BASOPHILS % (AUTO) 0 % (0-10); EOSINOPHILS # (AUTO) 0.1 10^3/uL (0.0-0.3); EOSINOPHILS % (AUTO) 0 % (0-10); HEMATOCRIT 26 % (40-54); HEMOGLOBIN 7.6 g/dL (13.3-17.7); LYMPHOCYTES # (AUTO) 1.2 10^3/uL (1.0-4.0); LYMPHOCYTES % (AUTO) 8 % (12-44); MEAN CORPUSCULAR HEMOGLOBIN 25 pg (25-34); MEAN CORPUSCULAR HGB CONC 30 g/dL (32-36); MEAN CORPUSCULAR VOLUME 83 fL (80-99); MEAN PLATELET VOLUME 10.8 fL (9.0-12.2); MONOCYTES % (AUTO) 13 % (0-12); NEUTROPHILS # (AUTO) 11.8 10^3/uL (1.8-7.8); NEUTROPHILS % (AUTO) 78 % (42-75); PLATELET COUNT 224 10^3/uL (130-400); WHITE BLOOD COUNT 15.2 10^3/uL (4.3-11.0)
[2020-04-20 04:20] LABS: POTASSIUM 3.2 MMOL/L (3.6-5.0)
[2020-04-20 04:21] LABS: CALCIUM 8.1 MG/DL (8.5-10.1)
[2020-04-20 04:25] LABS: CREATININE SERUM 2.14 MG/DL (0.60-1.30); PHOSPHORUS 3.3 MG/DL (2.3-4.7)
[2020-04-20 04:28] LABS: MAGNESIUM 1.9 MG/DL (1.6-2.4)
--- NOTE | 2020-04-20 05:13 | Pulmonary Progress Note ---
Subjective Time Seen by a Provider: 05:10 Subjective/Events-last exam No complications noted. Sepsis Event Evaluation Height, Weight, BMI Height: 6'0.00" Weight: 270lbs. 0.0oz. 122.153049qa; 41.69 BMI Method:Stated Exam Exam Vital Signs Date Time Temp Pulse Resp B/P (MAP) Pulse Ox O2 Delivery O2 Flow Rate FiO2 04/20/20 04:00 65 127/94 (105) 97 Room Air 04/20/20 03:38 36.9 93 Room Air 04/20/20 03:00 67 169/74 (105) 95 NIV CPAP 04/20/20 02:00 67 125/62 (83) 92 NIV CPAP 04/20/20 01:10 36.5 04/20/20 01:00 74 178/86 (116) 94 NIV CPAP 04/20/20 01:00 74 04/20/20 00:40 38.4 04/20/20 00:00 73 178/82 (114) 95 NIV CPAP 04/19/20 23:56 38.4 04/19/20 23:05 70 143/71 (95) 96 NIV CPAP 04/19/20 22:30 NIV CPAP 04/19/20 22:00 69 159/76 (103) 95 Room Air 04/19/20 21:00 72 149/61 (90) 96 Room Air 04/19/20 20:00 75 144/70 (94) 93 Room Air 04/19/20 19:48 96 Room Air 04/19/20 19:45 73 154/68 (96) 96 Room Air 04/19/20 19:44 37.3 04/19/20 19:00 74 04/19/20 19:00 74 138/105 (116) Room Air 04/19/20 18:00 56 20 106/78 (87) 93 Room Air 04/19/20 17:00 72 142/67 (88) 93 Room Air 04/19/20 16:00 71 133/53 (79) 94 Room Air 04/19/20 15:53 37.0 04/19/20 15:00 68 143/70 (94) 93 Room Air 04/19/20 14:44 68 132/79 (96) 94 Room Air 04/19/20 13:00 65 128/59 (82) 95 Room Air 04/19/20 13:00 63 12/20/20 12:00 38.0 Room Air 04/19/20 12:00 63 111/88 (96) 95 Room Air 04/19/20 11:00 63 127/62 (89) 94 Room Air 04/19/20 10:00 58 107/86 (91) 94 Room Air 04/19/20 09:00 63 113/62 (79) 93 04/19/20 08:00 NIV CPAP 04/19/20 08:00 60 129/63 (87) 92 04/19/20 07:45 61 129/66 (88) 96 04/19/20 07:30 61 121/63 (82) 93 04/19/20 07:15 61 120/60 (79) 92 04/19/20 07:00 62 04/19/20 07:00 62 131/62 (79) 93 04/19/20 06:45 62 127/65 (85) 94 04/19/20 06:30 62 130/64 (96) 94 04/19/20 06:15 63 131/65 (90) 94 04/19/20 06:00 64 131/65 (87) 97 NIV CPAP I & O 04/20/20 07:00 Intake Total 2415 ml Output Total 1175 ml Balance 1240 ml Height & Weight Height: 6'0.00" Weight: 270lbs. 0.0oz. 122.464658gc; 41.69 BMI Method:Stated General Appearance: No Apparent Distress, WD/WN, Anxious HEENT: PERRL/EOMI, Normal ENT Inspection, Pharynx Normal, Moist Mucous Membranes Neck: Full Range of Motion Respiratory: Chest Non Tender, Lungs Clear, Normal Breath Sounds, No Accessory Muscle Use, No Respiratory Distress Cardiovascular: Regular Rate, Rhythm, No Murmur Capillary Refill: Less Than 3 Seconds Extremity: Normal Inspection, No Pedal Edema Neurologic/Psychiatric: Alert, Oriented x3, No Motor/Sensory Deficits, Normal Mood/Affect, police booking officer II-XII Norm as Tested Skin: Normal Color, Warm/Dry Lymphatic: No Adenopathy Results Lab Laboratory Tests 04/18/20 05:30 04/18/20 19:35 04/19/20 01:33 04/20/20 03:26 Assessment/Plan Assessment/Plan Runs of Vta while on 4th s/p heart cath 04/18 - no stents placed -cardiology following -Amiodarone and hep gtts [place] -Cardiology following Psychosis with hx of dementia -Start Risperadol Renal failure -Monitor -Currently on NS at 100cc/hr Anemia with PUD s/p EGD -S/p 4 total units of PRBC -Protonix -Surgery is following Hypomag -Replace CAD RUBY FALK DO Apr 20, 2020 05:13
[2020-04-20 05:39] LABS: ANISOCYTOSIS SLIGHT; BAND NEUTROPHILS 4 %; LYMPHOCYTES % (MANUAL) 5 %; MICROCYTOSIS SLIGHT; MONOCYTES % (MANUAL) 11 %; NEUTROPHILS % (MANUAL) 80 %; POIKILOCYTOSIS SLIGHT; POLYCHROMASIA SLIGHT
[2020-04-20] MEDS: LACTATED RINGERS 1,000 ML IV SCH ×4 (05:41→20:01)
[2020-04-20] MEDS: POTASSIUM CL 10MEQ/50ML IVPB 50 ML IV SCH (06:37)
[2020-04-20] MEDS: KCL 20 MEQ TAB (K-DUR) PO SCH (06:37)
[2020-04-20] MEDS: MAGNESIUM 1 GM/100 ML IVPB 100 ML IV SCH (06:37)
[2020-04-20] MEDS: inSUlin ASPART (NovoLOG) 1 UNIT/0.01 ML (CHARGE PER UNIT) SC SCH ×4 (06:37→20:55)
[2020-04-20] MEDS: SUCRALFATE 1 GM (CARAFATE) TAB PO SCH ×4 (06:49→20:02)
--- NOTE | 2020-04-20 07:35 | Progress Note - Cardiology ---
Cardiology SOAP Progress Note Objective: I&O/Vital Signs 04/21/20 04/21/20 04/21/20 04/21/20 00:02 00:35 01:00 04:05 Temp 37.8 36.0 Pulse 71 76 79 Resp 26 21 B/P (MAP) 143/68 (93) 157/68 (97) 145/69 (94) Pulse Ox 96 92 O2 Delivery Room Air Room Air 04/21/20 04/21/20 04/21/20 07:00 07:57 08:00 Temp 36.7 Pulse 88 77 Resp 24 B/P (MAP) 151/70 (97) Pulse Ox 96 97 O2 Delivery Room Air Room Air 04/20/20 23:59 Intake Total 1390 ml Output Total 1275 ml Balance 115 ml Weight (Pounds): 270 Weight (Ounces): 0.0 Weight (Calculated Kilograms): 122.405020 Constitutional: AAO x 3 Respiratory: chest is bilaterally symmetric, lungs clear to auscultation Cardiovascular: regular rate-rhythm, S1 and S2; No diastolic murmur, No systolic murmur Gastrointestional: soft, audible bowel sounds Extremities: normal range of motion, non-tender, normal inspection, no lower extremity edema bilateral Neurologic/Psychiatric: no motor/sensory deficits, alert, normal mood/affect, oriented x 3 Skin: normal color, warm/dry Results/Procedures: Labs Laboratory Tests 04/20/20 11:09: Glucometer 214H 04/20/20 15:10: White Blood Count 13.8H, Red Blood Count 3.38L, Hemoglobin 8.6L, Hematocrit 28L, Mean Corpuscular Volume 84, Mean Corpuscular Hemoglobin 25, Mean Corpuscular Hemoglobin Concent 30L, Red Cell Distribution Width 18.0H, Platelet Count 231, Mean Platelet Volume 11.0, Immature Granulocyte % (Auto) 1, Neutrophils (%) (Auto) 80H, Lymphocytes (%) (Auto) 6L, Monocytes (%) (Auto) 12, Eosinophils (%) (Auto) 0, Basophils (%) (Auto) 0, Neutrophils # (Auto) 11.1H, Lymphocytes # (Auto) 0.8L, Monocytes # (Auto) 1.7H, Eosinophils # (Auto) 0.1, Basophils # (Auto) 0.0, Immature Granulocyte # (Auto) 0.1 04/20/20 15:31: Glucometer 187H 04/20/20 20:31: Glucometer 200H 04/21/20 03:20: White Blood Count 14.4H, Red Blood Count 3.20L, Hemoglobin 8.1L, Hematocrit 26L, Mean Corpuscular Volume 80, Mean Corpuscular Hemoglobin 25, Mean Corpuscular Hemoglobin Concent 32, Red Cell Distribution Width 17.9H, Platelet Count 238, Mean Platelet Volume 10.6, Immature Granulocyte % (Auto) 1, Neutrophils (%) (Auto) 83H, Lymphocytes (%) (Auto) 5L, Monocytes (%) (Auto) 11, Eosinophils (%) (Auto) 1, Basophils (%) (Auto) 0, Neutrophils # (Auto) 11.9H, Lymphocytes # (Auto) 0.7L, Monocytes # (Auto) 1.6H, Eosinophils # (Auto) 0.1, Basophils # (Auto) 0.0, Immature Granulocyte # (Auto) 0.1, Neutrophils % (Manual) 89, Lymphocytes % (Manual) 3, Monocytes % (Manual) 7, Eosinophils % (Manual) 1, Toxic Granulation 1+, Polychromasia SLIGHT, Anisocytosis SLIGHT, Microcytosis SLIGHT, Prothrombin Time 18.6H, INR Comment 1.5H, Sodium Level 138, Potassium Level 3.7, Chloride Level 109H, Carbon Dioxide Level 17L, Anion Gap 12, Blood Urea Nitrogen 37H, Creatinine 2.01H, Estimat Glomerular Filtration Rate 32, BUN/Creatinine Ratio 18, Glucose Level 176H, Calcium Level 8.6, Corrected Calcium 9.2, Phosphorus Level 2.5, Magnesium Level 2.0, Total Bilirubin 1.1H, Aspartate Amino Transf (AST/SGOT) 23, Alanine Aminotransferase (ALT/SGPT) 18, Al kaline Phosphatase 70, Total Protein 6.3L, Albumin 3.2 Microbiology 04/16/20 MRSA Screen - Final, Complete MRSA not isolated A/P: Assessment: Acute non-ST elevation myocardial infarction, elevated troponin, active chest pain that has resolved after resolution of the anemia. The management is complex due to the fact that patient has severe anemia and cannot tolerate aggressive anticoagulation Coronary artery disease, status post CABG 3 in 1997 with GUTIERREZ to LAD, vein graft to left circumflex, vein graft to first diagonal. Cardiac catheterization was done in June 2014 showing patent bypass graft, the [place] arteries are diseased proximally, right coronary artery is totally occluded which was not bypassed but receiving collaterals from the LAD system. Patient reports he underwent stent placement to one of his vein grafts approx months ago in [place], [place]. Cardiac catheterization Apr 18, [address] Robbins showed severe LM and 3VD with patent grafts. No PCI done. Occluded non-grafted RCA. NSTEMI either due to severe anemia and/or small vessel disease. Aggressive medical therapy including aspirin, plavix and IV heparin x 48 hours. 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 NSVT - Amiodarone bolus and infusion. once infusion is completed start Amiodarone 200mg bid. Metoprolol increased to 50 bid. No further ventricular ectopy overnight. Echocardiogram of Apr 16, [address] Barrow showed LVEF 55-65%. Grade 2 diastolic dysfunction. LA and RA dialted. Mod MR. Ao valve thickening consistent with sclerosis, mild regurg. Mod TR. PASP 40-45mmHg Severe anemia, probably GI loss, reporting occasional black stool. Received 4 units of packed RBCs. Dr. Aguirre endoscopy on Apr 16, 2020 Reflux esophagitis stage II, small hiatal hernia approximately 2 cm in size, severe gastritis of the stomach antrum with small multiple prepyloric ulcers, two of which were actively bleeding. Underwent biopsy and hemostasis with cautery as well as placement of clips - worsening anemia this morning Acute on chronic renal failure - worsening renal function today Acute aond chronic diastilic congestive heart failure Questionable PAF, maintained on Eliquis that was started approx 3 months ago. Eliquis was held. Patient cannot tolerate taking Eliquis, aspirin and Plavix at the same time. heparin for now; long-term therapy likely with plavix and eliquis. Right bundle branch block, chronic Hypertension Hyperlipidemia Mild bilateral carotid artery stenosis, last carotid ultrasound was done in December 2018 Diabetes mellitus-managed by primary care physician Obesity, BMI 40-instructed on importance of diet and exercise. Hypokalemia - replace Clinical Quality Measures AMI/AHF: ASA po Prior to arrival: Yes NASIMA SÁNCHEZ Apr 20, 2020 07:35
--- NOTE | 2020-04-20 08:10 | NUR ---
DR DEVI NOTIFIED THIS NURSE TO DC HEPARIN DRIP, START PT ON ELIQUIS PER ORDER, CONTINUE ASPIRIN, DC PLAVIX, REPEAT LABS IN AM, AND TO GIVE ONE UNIT OF PRBC. ORDERS WRITTEN DOWN AND REPEATED TO DR DEVI. SEE ORDER HX. WILL CONTINUE TO MONITOR.
--- NOTE | 2020-04-20 08:16 | Diagnostic Imaging Report ---
Indication: Chest pain. Time of exam: 2:06 AM Correlation is made with prior chest from one day earlier. Changes of median sternotomy are noted. Heart is enlarged but stable. Lungs appear to be fairly clear. No infiltrate or failure is detected. There is no effusion or pneumothorax. IMPRESSION: Stable chest. No acute feature is detected. Dictated by: Dictated on workstation # [id number]
--- NOTE | 2020-04-20 08:17 | Progress Note - Cardiology ---
Cardiology SOAP Progress Note Subjective: Has gen malaise Does not currently report cp Shortness of breath with mild exertion No palp or syncope Chronic, mild, intermittent led swelling Denies n/v/d Objective: I&O/Vital Signs 04/19/20 04/19/20 04/19/20 04/19/20 21:00 22:00 22:30 23:05 Pulse 72 69 70 B/P (MAP) 149/61 (90) 159/76 (103) 143/71 (95) Pulse Ox 96 95 96 O2 Delivery Room Air Room Air NIV CPAP NIV CPAP 04/19/20 04/20/20 04/20/20 04/20/20 23:56 00:00 00:40 01:00 Temp 38.4 38.4 Pulse 73 74 B/P (MAP) 178/82 (114) Pulse Ox 95 O2 Delivery NIV CPAP 04/20/20 04/20/20 04/20/20 04/20/20 01:00 01:10 02:00 03:00 Temp 36.5 Pulse 74 67 67 B/P (MAP) 178/86 (116) 125/62 (83) 169/74 (105) Pulse Ox 94 92 95 O2 Delivery NIV CPAP NIV CPAP NIV CPAP 04/20/20 04/20/20 04/20/20 04/20/20 03:38 04:00 05:00 06:00 Temp 36.9 Pulse 65 68 66 B/P (MAP) 127/94 (105) 122/67 (85) Pulse Ox 93 97 94 O2 Delivery Room Air Room Air Room Air Room Air 04/20/20 04/20/20 04/20/20 06:41 07:00 07:51 Temp 38.1 Pulse 70 71 74 Resp 24 B/P (MAP) 156/66 (96) 125/53 (77) Pulse Ox 96 96 O2 Delivery Room Air Room Air 04/20/20 00:00 Intake Total 1665 ml Output Total 700 ml Balance 965 ml Weight (Pounds): 270 Weight (Ounces): 0.0 Weight (Calculated Kilograms): 122.455738 Constitutional: AAO x 3 Respiratory: chest is bilaterally symmetric, lungs clear to auscultation Cardiovascular: regular rate-rhythm, S1 and S2; No diastolic murmur, No systolic murmur Gastrointestional: soft, audible bowel sounds Extremities: normal range of motion, non-tender, normal inspection, no lower extremity edema bilateral Neurologic/Psychiatric: no motor/sensory deficits, alert, normal mood/affect, oriented x 3 Skin: normal color, warm/dry Results/Procedures: Labs Laboratory Tests 04/19/20 09:26: Activated Partial Thromboplast Time 67H 04/19/20 10:53: Glucometer 176H 04/19/20 15:32: Activated Partial Thromboplast Time 58H 04/19/20 17:21: Glucometer 175H 04/19/20 20:31: Glucometer 199H 04/19/20 23:00: Activated Partial Thromboplast Time 47H 04/20/20 03:26: Activated Partial Thromboplast Time 80H, White Blood Count 15.2H, Red Blood Count 3.08L, Hemoglobin 7.6L, Hematocrit 26L, Mean Corpuscular Volume 83, Mean Corpuscular Hemoglobin 25, Mean Corpuscular Hemoglobin Concent 30L, Red Cell Distribution Width 18.6H, Platelet Count 224, Mean Platelet Volume 10.8, Immature Granulocyte % (Auto) 1, Neutrophils (%) (Auto) 78H, Lymphocytes (%) (Auto) 8L, Monocytes (%) (Auto) 13H, Eosinophils (%) (Auto) 0, Basophils (%) (Auto) 0, Neutrophils # (Auto) 11.8H, Lymphocytes # (Auto) 1.2, Monocytes # (Auto) 2.0H, Eosinophils # (Auto) 0.1, Basophils # (Auto) 0.0, Immature Granulocyte # (Auto) 0.1, Neutrophils % (Manual) 80, Lymphocytes % (Manual) 5, Monocytes % (Manual) 11, Band Neutrophils 4, Polychromasia SLIGHT, Poikilocytosis SLIGHT, Anisocytosis SLIGHT, Microcytosis SLIGHT, Sodium Level 135, Potassium Level 3.2L, Chloride Level 106, Carbon Dioxide Level 17L, Anion Gap 12, Blood Urea Nitrogen 35H, Creatinine 2.14H, Estimat Glomerular Filtration Rate 30, BUN/Creatinine Ratio 16, Glucose Level 171H, Calcium Level 8.1L, Phosphorus Level 3.3, Magnesium Level 1.9 Microbiology 04/16/20 MRSA Screen - Final, Complete MRSA not isolated Laboratory Tests 04/18/20 19:35 04/19/20 01:33 04/20/20 03:26 A/P: Assessment: CAD. Admitted with NSTEMI and card cath on 04/18/[address] Robbins showed severe occlusive left main and three vessel disease with patent grafts to LAD, D1 and OM1. RCA is not grafted with faint collaterals from the left. No PCI done. NSTEMI likely due to severe anemia and in the presence of small or distal vessel disease H/o PAF H/o care home treatment with ASA, Plavix and Eliquis. On 04/20/20, Plavix stopped, heparin stopped, and restarted a lowered dose of Eliquis (due to h/o GI bleed) NSVT - Amiodarone bolus and infusion. Now on oral amiodarone and metoprolol Echocardiogram of Apr 16, [address] Barrow showed LVEF 55-65%. Grade 2 diastolic dysfunction. LA and RA dialted. Mod MR. Ao valve thickening consistent with sclerosis, mild regurg. Mod TR. PASP 40-45mmHg Worsening anemia. Severe anemia, probably GI loss. Dr. Aguirre endoscopy on Apr 16, 2020 Reflux esophagitis stage II, small hiatal hernia approximately 2 cm in size, severe gastritis of the stomach antrum with small multiple prepyloric ulcers, two of which were actively bleeding. Underwent biopsy and hemostasis with cautery as well as placement of clips Acute on chronic renal failure - worsening renal function today Acute and chronic diastolic congestive heart failure Right bundle branch block, chronic Hypertension Hyperlipidemia Mild bilateral carotid artery stenosis, last carotid ultrasound was done in December 2018 Diabetes mellitus-managed by the [facility] Obesity, BMI 40 Hypokalemia Plan: * Complex management due to multiple comorbidities the treatments of which contradict each other * Because there appears to ongoing active bleeding, we de-intensifying his antiplatelet and anticoag regimen (see above). We need to continue some antiplatelet and some anticoag for his known CAD and PAF * Blood transfusion today in effort to restore Hgb to around 10 * Replenish K * Monitor labs closely * I had a detailed discussion with him after reviewing his records, and interviewing and examining him Clinical Quality Measures AMI/AHF: ASA po Prior to arrival: Yes REESE DEVI MD FACP [facility] Apr 20, 2020 08:17
[2020-04-20] MEDS ORDERED: NS IV 500 ML 500 ML IV SCH (08:30)
[2020-04-20] MEDS: risperiDONE 1 MG (RisperDAL) TAB PO SCH ×2 (08:42→20:02)
[2020-04-20] MEDS: LOSARTAN 100 MG (COZAAR) TABLET PO SCH (08:42)
[2020-04-20] MEDS: AMIODARONE 200 MG (CORDARONE) TAB PO SCH ×2 (08:42→20:02)
[2020-04-20] MEDS: APIXABAN 2.5 MG (ELIQUIS) TABLET PO SCH ×2 (08:42→20:02)
[2020-04-20] MEDS: meTOprolol TARTRATE 50 MG (LOPRESSOR) TAB PO SCH ×2 (08:42→20:02)
[2020-04-20] MEDS: ASPIRIN E.C. 81 MG (ECOTRIN) TAB PO SCH (08:43)
[2020-04-20] MEDS: PANTOPRAZOLE 40 MG (PROTONIX) VIAL IV SCH ×2 (08:44→20:02)
[2020-04-20] MEDS ORDERED: KCL 20 MEQ TAB (K-DUR) PO ONE (09:00)
[2020-04-20] MEDS ORDERED: NS IV 500 ML 500 ML ONE (09:53)
--- NOTE | 2020-04-20 10:15 | NUR ---
THIS NURSE NOTIFIED DR CARRINGTON PT HAS A FEVER. ORDER GIVEN TO GIVE TYLENOL AND MONITOR FOR NOW. IF TEMP CONTINUES TO RISE NOTIFIED DR CARRINGTON.
--- NOTE | 2020-04-20 13:17 | Progress Note ---
Subjective Subjective/Events-last exam 79 yo M admitted with NSTEMI and severe anemia. Patient states that he is feeling better this AM. Denies any chest pain or shortness of breath but he has not been up and out of bed. Tolerating PO diet w/o much pain. States that he has not had a BM in the last 2 days. Review of Systems Pulmonary: Dyspnea; No Cough Cardiovascular: No: Chest Pain, Palpitations Gastrointestinal: Melena; No: Nausea, Vomiting, Abdominal Pain Neurological: Weakness, Incoordination Objective Exam Last Set of Vital Signs Vital Signs Date Time Temp Pulse Resp B/P (MAP) Pulse Ox O2 Delivery O2 Flow Rate FiO2 04/20/20 12:26 69 04/20/20 11:53 25 125/81 (96) 95 Room Air 04/20/20 11:10 38.2 04/19/20 11:00 Capillary Refill : Less Than 3 SecondsLess Than 3 Seconds I&O Intake and Output 04/20/20 00:00 Intake Total 2665 ml Output Total 1275 ml Balance 1390 ml Intake Oral 1465 ml IV Total 1200 ml Output Urine Total 1275 ml General: Alert, Oriented X3, Cooperative HEENT: Mucous Memb Moist/[place] Lungs: Clear to Auscultation, Normal Air Movement Heart: Regular Rate, No Murmurs Abdomen: Normal Bowel Sounds, Soft, No Tenderness, No Masses Extremities: Other (1+ swelling equal bilaterally) Skin: No Rashes, No Breakdown Neuro: Normal Speech Psych/Mental Status: Mental Status NL, Mood NL Results/Procedures Lab Laboratory Tests 04/19/20 15:32: Activated Partial Thromboplast Time 58H 04/19/20 17:21: Glucometer 175H 04/19/20 20:31: Glucometer 199H 04/19/20 23:00: Activated Partial Thromboplast Time 47H 04/20/20 03:26: White Blood Count 15.2H, Red Blood Count 3.08L, Hemoglobin 7.6L, Hematocrit 26L, Mean Corpuscular Volume 83, Mean Corpuscular Hemoglobin 25, Mean Corpuscular Hem oglobin Concent 30L, Red Cell Distribution Width 18.6H, Platelet Count 224, Mean Platelet Volume 10.8, Immature Granulocyte % (Auto) 1, Neutrophils (%) (Auto) 78H, Lymphocytes (%) (Auto) 8L, Monocytes (%) (Auto) 13H, Eosinophils (%) (Auto) 0, Basophils (%) (Auto) 0, Neutrophils # (Auto) 11.8H, Lymphocytes # (Auto) 1.2, Monocytes # (Auto) 2.0H, Eosinophils # (Auto) 0.1, Basophils # (Auto) 0.0, Immature Granulocyte # (Auto) 0.1, Neutrophils % (Manual) 80, Lymphocytes % (Manual) 5, Monocytes % (Manual) 11, Band Neutrophils 4, Polychromasia SLIGHT, Poikilocytosis SLIGHT, Anisocytosis SLIGHT, Microcytosis SLIGHT, Activated Partial Thromboplast Time 80H, Sodium Level 135, Potassium Level 3.2L, Chloride Level 106, Carbon Dioxide Level 17L, Anion Gap 12, Blood Urea Nitrogen 35H, Creatinine 2.14H, Estimat Glomerular Filtration Rate 30, BUN/Creatinine Ratio 16, Glucose Level 171H, Calcium Level 8.1L, Phosphorus Level 3.3, Magnesium Level 1.9 04/20/20 09:03: Activated Partial Thromboplast Time 57H 04/20/20 11:09: Glucometer 214H Microbiology 04/16/20 MRSA Screen - Final, Complete MRSA not isolated Assessment/Plan Assessment/Plan (1) Severe anemia Status: Acute Assessment & Plan: 04/20: S/p 4 units pRBCs, Goal Hgb around 10 due to CAD (2) Unstable angina Status: Acute Assessment & Plan: 04/20: Reviewed cath report from Dr Robbins, patient has severe occlusive disease but likely related to severe anemia, Cardiology co nsulted, appreciate recommendations (3) NSTEMI (non-ST elevated myocardial infarction) Status: Acute (4) CAD (coronary artery disease) Status: Acute Qualifiers: Qualified Codes: I25.110 - Atherosclerotic heart disease of [place] coronary artery with unstable angina pectoris (5) Non-sustained ventricular tachycardia Status: Acute Assessment & Plan: 04/20: Patient transitioned to PO amiodarone (6) Gastric ulcer Status: Acute Assessment & Plan: 04/20: Reviewed scope performed by Dr Aguirre, continue protonix IV, patient currently not on OAC due to bleeding ulcers and receiving pRBCs Qualifiers: Qualified Codes: K25.0 - Acute gastric ulcer with hemorrhage (7) S/P CABG x 3 Status: Chronic (8) HTN (hypertension) Status: Acute Assessment & Plan: 04/20: Holding HTN meds due to severe anemia Clinical Quality Measures AMI/AHF: ASA po Prior to arrival: Yes DVT/VTE Risk/Contraindication: Risk Factor Score Per Nursin RFS Level Per Nursing on Admit: 2=Moderate Other: GI BLEED SEVERINO CARRINGTON MD Apr 20, 2020 13:17
[2020-04-20 15:22] LABS: BASOPHILS % (AUTO) 0 % (0-10); EOSINOPHILS # (AUTO) 0.1 10^3/uL (0.0-0.3); EOSINOPHILS % (AUTO) 0 % (0-10); HEMATOCRIT 28 % (40-54); HEMOGLOBIN 8.6 g/dL (13.3-17.7); LYMPHOCYTES # (AUTO) 0.8 10^3/uL (1.0-4.0); LYMPHOCYTES % (AUTO) 6 % (12-44); MEAN CORPUSCULAR HEMOGLOBIN 25 pg (25-34); MEAN CORPUSCULAR HGB CONC 30 g/dL (32-36); MEAN CORPUSCULAR VOLUME 84 fL (80-99); MONOCYTES # (AUTO) 1.7 10^3/uL (0.0-1.0); MONOCYTES % (AUTO) 12 % (0-12); NEUTROPHILS # (AUTO) 11.1 10^3/uL (1.8-7.8); NEUTROPHILS % (AUTO) 80 % (42-75); PLATELET COUNT 231 10^3/uL (130-400); WHITE BLOOD COUNT 13.8 10^3/uL (4.3-11.0)
[2020-04-20] MEDS: SIMvastatin 20 MG (ZOCOR) TAB PO SCH (20:02)
[2020-04-21] VITALS (7 sets, daily range): BP systolic 143–159; BP diastolic 63–78
[2020-04-21] MEDS: DexMEDEtomidine PRE MIX 100 ML IV SCH (00:45)
[2020-04-21 03:37] LABS: BASOPHILS % (AUTO) 0 % (0-10); EOSINOPHILS # (AUTO) 0.1 10^3/uL (0.0-0.3); EOSINOPHILS % (AUTO) 1 % (0-10); HEMATOCRIT 26 % (40-54); HEMOGLOBIN 8.1 g/dL (13.3-17.7); LYMPHOCYTES # (AUTO) 0.7 10^3/uL (1.0-4.0); LYMPHOCYTES % (AUTO) 5 % (12-44); MEAN CORPUSCULAR HEMOGLOBIN 25 pg (25-34); MEAN CORPUSCULAR HGB CONC 32 g/dL (32-36); MEAN CORPUSCULAR VOLUME 80 fL (80-99); MEAN PLATELET VOLUME 10.6 fL (9.0-12.2); MONOCYTES # (AUTO) 1.6 10^3/uL (0.0-1.0); MONOCYTES % (AUTO) 11 % (0-12); NEUTROPHILS # (AUTO) 11.9 10^3/uL (1.8-7.8); NEUTROPHILS % (AUTO) 83 % (42-75); WHITE BLOOD COUNT 14.4 10^3/uL (4.3-11.0)
[2020-04-21 03:59] LABS: ALBUMIN 3.2 GM/DL (3.2-4.5); POTASSIUM 3.7 MMOL/L (3.6-5.0)
[2020-04-21 04:00] LABS: CALCIUM 8.6 MG/DL (8.5-10.1); INR 1.5 (0.8-1.4); PROTHROMBIN TIME PATIENT 18.6 SEC (12.2-14.7)
[2020-04-21 04:02] LABS: TOTAL PROTEIN 6.3 GM/DL (6.4-8.2)
[2020-04-21 04:03] LABS: BILIRUBIN,TOTAL 1.1 MG/DL (0.1-1.0)
[2020-04-21 04:05] LABS: CREATININE SERUM 2.01 MG/DL (0.60-1.30); PHOSPHORUS 2.5 MG/DL (2.3-4.7)
[2020-04-21] MEDS: LACTATED RINGERS 1,000 ML IV SCH ×3 (04:15→22:34)
[2020-04-21 04:53] LABS: ANISOCYTOSIS SLIGHT; EOSINOPHILS % (MANUAL) 1 %; LYMPHOCYTES % (MANUAL) 3 %; MICROCYTOSIS SLIGHT; MONOCYTES % (MANUAL) 7 %; NEUTROPHILS % (MANUAL) 89 %; POLYCHROMASIA SLIGHT; TOXIC GRANULATION/VACUOLAZATIO 1+
[2020-04-21 04:54] LABS: PLATELET COUNT 238 10^3/uL (130-400)
[2020-04-21] MEDS: KCL 20 MEQ TAB (K-DUR) PO SCH (06:37)
[2020-04-21] MEDS: MAGNESIUM 1 GM/100 ML IVPB 100 ML IV SCH (06:37)
[2020-04-21] MEDS: inSUlin ASPART (NovoLOG) 1 UNIT/0.01 ML (CHARGE PER UNIT) SC SCH ×4 (06:37→21:42)
[2020-04-21] MEDS: POTASSIUM CL 10MEQ/50ML IVPB 50 ML IV SCH (06:37)
[2020-04-21] MEDS: SUCRALFATE 1 GM (CARAFATE) TAB PO SCH ×4 (06:49→20:39)
--- NOTE | 2020-04-21 07:06 | Pulmonary Progress Note ---
Subjective Time Seen by a Provider: 07:05 Subjective/Events-last exam No complications noted. Sepsis Event Evaluation Height, Weight, BMI Height: 6'0.00" Weight: 270lbs. 0.0oz. 122.987313uj; 41.69 BMI Method:Stated Exam Exam Vital Signs Date Time Temp Pulse Resp B/P (MAP) Pulse Ox O2 Delivery O2 Flow Rate FiO2 04/21/20 04:05 36.0 79 21 145/69 (94) 92 Room Air 04/21/20 01:00 76 04/21/20 00:35 157/68 (97) 04/21/20 00:02 37.8 71 26 143/68 (93) 96 Room Air 04/20/20 20:57 36.9 04/20/20 20:32 36.9 04/20/20 20:02 38.4 04/20/20 20:00 97 Room Air 04/20/20 19:11 38.4 78 29 152/70 (97) 96 Room Air 04/20/20 19:00 89 04/20/20 15:29 36.5 70 24 131/63 (85) 97 Room Air 04/20/20 14:10 36.4 68 22 134/63 96 Room Air 04/20/20 12:26 69 04/20/20 11:53 68 25 125/81 (96) 95 Room Air 04/20/20 11:10 38.2 66 20 121/56 (77) 95 Room Air 04/20/20 10:36 38.1 67 20 122/63 95 Room Air 04/20/20 10:16 38.6 67 20 115/64 94 Room Air 04/20/20 07:51 38.1 74 24 125/53 (77) 96 Room Air 04/20/20 07:45 95 Room Air I & O 04/21/20 07:00 Intake Total 1720 ml Output Total 2075 ml Balance -355 ml Height & Weight Height: 6'0.00" Weight: 270lbs. 0.0oz. 122.533267lr; 41.69 BMI Method:Stated General Appearance: No Apparent Distress, WD/WN, Chronically ill HEENT: PERRL/EOMI, Normal ENT Inspection, Pharynx Normal, Moist Mucous Membranes Neck: Full Range of Motion Respiratory: Chest Non Tender, Lungs Clear, Normal Breath Sounds, No Accessory Muscle Use, No Respiratory Distress Cardiovascular: Regular Rate, Rhythm, No Edema, No Gallop, No JVD, No Murmur, Normal Peripheral Pulses Capillary Refill: Less Than 3 Seconds Extremity: Normal Inspection, No Pedal Edema Neurologic/Psychiatric: Alert, Oriented x3, No Motor/Sensory Deficits, Normal Mood/Affect Skin: Normal Color, Warm/Dry Lymphatic: No Adenopathy Results Lab Laboratory Tests 04/20/20 03:26 04/20/20 15:10 04/21/20 03:20 Assessment/Plan Assessment/Plan Runs of Vta while on 4th s/p heart cath 04/18 - no stents placed -cardiology following -Amiodarone and hep gtts [facility] -Cardiology following Psychosis with hx of dementia -Start Risperadol Renal failure -Monitor -Currently on NS at 100cc/hr Anemia with PUD s/p EGD -S/p 4 total units of PRBC -Protonix -Surgery is following Hypomag -Replace CAD RUBY FALK DO Apr 21, 2020 07:06
[2020-04-21] MEDS ORDERED: PIPERACILLIN/TAZOBACTAM (BULK) 4.5 GM in NS (IVPB) 100 ML IV ONE (07:30)
--- NOTE | 2020-04-21 08:07 | Diagnostic Imaging Report ---
INDICATION: Fever. Frontal chest obtained at 7:58 a.m. and compared to 04/20/2020. There is cardiomegaly and poststernotomy change. There is unchanged central vascular congestion. There is no consolidation or pneumothorax or pleural fluid. IMPRESSION: Cardiomegaly and mild central vascular congestion. No consolidation or pneumothorax or pleural fluid. Dictated by: Dictated on workstation # [id number]
[2020-04-21] MEDS: LOSARTAN 100 MG (COZAAR) TABLET PO SCH (08:39)
[2020-04-21] MEDS: APIXABAN 2.5 MG (ELIQUIS) TABLET PO SCH ×2 (08:39→20:39)
[2020-04-21] MEDS: PANTOPRAZOLE 40 MG (PROTONIX) VIAL IV SCH ×2 (08:39→22:34)
[2020-04-21] MEDS: AMIODARONE 200 MG (CORDARONE) TAB PO SCH ×2 (08:39→20:39)
[2020-04-21] MEDS: meTOprolol TARTRATE 50 MG (LOPRESSOR) TAB PO SCH ×2 (08:39→20:39)
[2020-04-21] MEDS: ASPIRIN E.C. 81 MG (ECOTRIN) TAB PO SCH (08:39)
[2020-04-21] MEDS: risperiDONE 1 MG (RisperDAL) TAB PO SCH ×2 (08:39→20:39)
--- NOTE | 2020-04-21 10:33 | Progress Note - Cardiology ---
Cardiology SOAP Progress Note Subjective: Lying in bed States he feels somewhat better today No c/o CP or SOB States he feels "tired" this morning Gen weakness Objective: I&O/Vital Signs 04/21/20 04/22/20 04/22/20 04/22/20 21:09 00:45 01:00 04:27 Temp 36.9 37.1 37.2 Pulse 68 67 76 Resp 26 26 B/P (MAP) 143/66 (91) 167/69 (101) Pulse Ox 94 94 O2 Delivery Room Air Room Air 04/22/20 04/22/20 04/22/20 06:49 07:00 07:33 Temp 37.1 36.5 Pulse 98 86 Resp 16 B/P (MAP) 172/81 (111) Pulse Ox 90 O2 Delivery Room Air 04/22/20 00:00 Intake Total 1800 ml Output Total 1025 ml Balance 775 ml Weight (Pounds): 270 Weight (Ounces): 0.0 Weight (Calculated Kilograms): 122.056755 Constitutional: AAO x 3 Respiratory: chest is bilaterally symmetric, lungs clear to auscultation Cardiovascular: regular rate-rhythm, S1 and S2; No diastolic murmur, No systolic murmur Gastrointestional: soft, audible bowel sounds Extremities: normal range of motion, non-tender, normal inspection, no lower extremity edema bilateral Neurologic/Psychiatric: no motor/sensory deficits, alert, normal mood/affect, oriented x 3 Skin: normal color, warm/dry Results/Procedures: Labs Laboratory Tests 04/21/20 10:45: Urine Color YELLOW, Urine Clarity CLEAR, Urine pH 5.5, Urine Specific [place] 1.025H, Urine Protein 2+H, Urine Glucose (UA) NEGATIVE, Urine Ketones NEGATIVE, Urine Nitrite NEGATIVE, Urine Bilirubin NEGATIVE, Urine Urobilinogen 1.0, Urine Leukocyte Esterase NEGATIVE, Urine RBC (Auto) 3+H, Urine RBC >100H, Urine WBC 2- 5, Urine Squamous Epithelial Cells RARE, Urine Crystals PRESENTH, Urine Uric Acid Crystals LARGEH, Urine Bacteria FEWH, Urine Casts NONE, Urine Mucus NEGATIVE, Urine Culture Indicated YES 04/21/20 10:52: Glucometer 202H 04/21/20 16:06: Glucometer 206H 04/21/20 21:36: Glucometer 179H 04/22/20 03:12: White Blood Count 13.5H, Red Blood Count 3.41L, Hemoglobin 8.5L, Hematocrit 27L, Mean Corpuscular Volume 80, Mean Corpuscular Hemoglobin 25, Mean Corpuscular Hemoglobin Concent 31L, Red Cell Distribution Width 18.4H, Platelet Count 265, Mean Platelet Volume 10.9, Immature Granulocyte % (Auto) 1, Neutrophils (%) (Auto) 80H, Lymphocytes (%) (Auto) 7L, Monocytes (%) (Auto) 11, Eosinophils (%) (Auto) 1, Basophils (%) (Auto) 0, Neutrophils # (Auto) 10.8H, Lymphocytes # (Auto) 1.0, Monocytes # (Auto) 1.4H, Eosinophils # (Auto) 0.2, Basophils # (Auto) 0.0, Immature Granulocyte # (Auto) 0.1, Sodium Level 141, Potassium Level 3.3L, Chloride Level 110H, Carbon Dioxide Level 17L, Anion Gap 14, Blood Urea Nitrogen 39H, Creatinine 1.98H, Estimat Glomerular Filtration Rate 33, BUN/Creatinine Ratio 20, Glucose Level 187H, Calcium Level 9.0, Phosphorus Level 2.7, Magnesium Level 2.0 Microbiology 04/21/20 Blood Culture - Preliminary, Resulted No growth 04/16/20 MRSA Screen - Final, Complete MRSA not isolated A/P: Assessment: CAD. Admitted with NSTEMI and card cath on 04/18/[address] Robbins showed severe occlusive left main and three vessel disease with patent grafts to LAD, D1 and OM1. RCA is not grafted with faint collaterals from the left. No PCI done. 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 On 04/20/20, Plavix stopped, heparin stopped, and restarted a lowered dose of Eliquis (due to h/o GI bleed) NSVT - Amiodarone bolus and infusion. Now on oral amiodarone and metoprolol Echocardiogram of Apr 16, [address] Barrow showed LVEF 55-65%. Grade 2 diastolic dysfunction. LA and RA dialted. Mod MR. Ao valve thickening consistent with sclerosis, mild regurg. Mod TR. PASP 40-45mmHg Worsening anemia. Severe anemia, probably GI loss. Dr. Aguirre endoscopy on Apr 16, 2020 Reflux esophagitis stage II, small hiatal hernia approximately 2 cm in size, severe gastritis of the stomach antrum with small multiple prepyloric ulcers, two of which were actively bleeding. Underwent biopsy and hemostasis with cautery as well as placement of clips Acute on chronic renal failure - worsening renal function today Acute and chronic diastolic congestive heart failure Right bundle branch block, chronic Hypertension Hyperlipidemia Mild bilateral carotid artery stenosis, last carotid ultrasound was done in December 2018 Diabetes mellitus-managed by the [facility] Obesity, BMI 40 Hypokalemia Plan: * Complex management due to multiple comorbidities the treatments of which contradict each other * Because there appears to ongoing active bleeding, we have already de- intensified his antiplatelet and anticoag regimen (see above). We need to continue some antiplatelet and some anticoag for his known CAD and PAF * Adjust antihypertensive regimen as indicated * Hgb continues to fall despite multiple transfusions - management per medical services * Monitor labs closely * Renal function somewhat improved today Clinical Quality Measures AMI/AHF: ASA po Prior to arrival: Yes NASIMA SÁNCHEZ Apr 21, 2020 10:33
--- NOTE | 2020-04-21 10:39 | Physical Therapy Evaluation ---
PT Evaluation-General Medical Diagnosis Admission Date Apr 15, 2020 at 21:24 Medical Diagnosis: anemia/unstable angina/CARMEN Onset Date: Apr 15, 2020 Therapy Diagnosis Therapy Diagnosis: extreme weakness/debility Height/Weight Height (Feet): 6 Height (Inches): 0.00 Weight (Pounds): 270 Weight (Ounces): 0.0 Precautions Precautions/Isolations: Fall Prevention, Standard Precautions, Pressure Ulcer Referral Physician: Filomena Reason for Referral: Evaluation/Treatment Medical History Pertinent Medical History: CABG, CAD, DM, Dementia, HTN, OA, Renal Ins ufficiency Current History ER secondary to CP and decreased Hgb Reviewed History: Yes Social History Home: Single Level Current Living Status: Spouse Prior Prior Level of Function SCALE: Activities may be completed with or without assistive devices. 3-Kebzasablp-kxhoqlt completes the activity by him/herself with no assistance from a helper. 5-Set-up or Clean-up Assistance-helper sets up or cleans up; patient completes activity. [place] assists only prior to or following the activity. 4-Supervision or Touching Assistance-helper provides verbal cues and/or touching/steadying and/or contact guard assistance as patient completes activity. Assistance may be provided throughout the activity or intermittently. 3-Partial/Moderate Assistance-helper does LESS THAN HALF the effort. [place] lifts, holds or supports trunk or limbs, but provides less than half the effort. 2-Substantial/Maximal Assistance-helper does MORE THAN HALF the effort. [place] lifts or holds trunk or limbs and provides more than half the effort. 2-Xntvclmvu-rerhiu does ALL the effort. Patient does none of the effort to complete the activity. Or, the assistance of 2 or more helpers is required for the patient to complete the activity. If activity was not attempted, code reason: 7-Patient Refused. 9-Not Applicable-not attempted and the patient did not perform the activity before the current illness, exacerbation or injury. 10-Not Attempted due to Environmental Limitations-(lack of equipment, weather restraints, etc.). 88-Not Attempted due to Medical Conditions or Safety Concerns. Bed Mobility: 5 Transfers (B,C,W/C): 5 Gait: 5 Indoor Mobility (Ambulation): Independent Stairs: Not [place] Prior Devices Use: Walker PT Evaluation-Current Subjective Patient is in bed and is moving his head only. When asked to move toes, foot, hands, etc., patient stated, "I can't." Pain Numeric Pain Scale: 10-Worst Possible Pain Location: Right, Left Location Body Site: Shoulder Pain Description: Sharp Objective Patient Orientation: Confused Attachments: Amanda Catheter, IV ROM/Strength ROM Upper Extremities bilateral LE WFL when patient is not focusing on them. Patient had his UE's up over his head with bed mobility after return to supine and did not realize it until PT brought his attention to it. ROM Lower Extremities bilateral LE (same as UE's/WFL, however, patient limits and resists all movement) Strength Upper Extremities 3-/5 grossly Strength Lower Extremities 3-/5 grossly bilateral LE (unable to formally test due to patient becoming highly agitated with request to perform activity) Integumentary/Posture Integumentary refer to nursing notes Bowel Incontinence: Yes Bladder Incontinence: Amanda Cath Posture WFL Neuromuscular (Tone, Coordination, Reflexes) severely diminished coordination due to severe deconditioned state. Sensory Vision: Functional Hearing: Functional Transfers Roll Left to Right (QC): 1 (x 2) Sit to Lying (QC): 1 (x 2 placing bed in Trendelenburg to assist with bed mobility and repositioning due to patient inability to assist.) Lying to Sitting/Side of Bed(Q: 1 (x 2) Patient adamantly declined to attempt to stand. Currently patient is too weak and unwilling to attempt. Gait Does the Patient Walk?: No and Walking Goal IS indicated Balance Sitting Static: Poor Sitting Dynamic: Poor Assessment/Needs 79 y.o. male, will benefit from skilled PT to address functional strength and mobility. From a PT standpoint, patient will require extended care facility due to inability to tolerate and perform minimal activity. Patient appears to self limit. Rehab Potential: Guarded PT Short Term Goals Short Term Goals Time Frame: Apr 30, 2020 Roll Left & Right: 2 Sit to lyin Lying to sitting on side of be: 2 Sit to stand: 2 Chair/gza-xr-imtby transfer: 2 PT Operations Consultant Goals Operations Consultant Goals PT Operations Consultant Goals Time Frame: May 16, 2020 Roll Left & Right (QC): 3 Sit to Lying (QC): 3 Lying-Sitting on Side/Bed(QC): 3 Sit to Stand (QC): 3 Chair/Ysy-fa-Qlwds Xfer(QC): 3 Toilet Transfer (QC): 3 Does the Patient Walk: No and Walking Goal IS indicated Walk 10 feet (QC): 3 PT Plan Problem List Problem List: Activity Tolerance, Functional Strength, Safety, Balance, Gait, Transfer, Bed Mobility, ROM Treatment/Plan Treatment Plan: Continue Plan of Care Treatment Plan: Bed Mobility, Education, Functional Activity Dylan, Functional Strength, Gait, Safety, Therapeutic Exercise, Transfers Treatment Duration: May 16, 2020 Frequency: 6 times per week Estimated Hrs Per Day: .5 hour per day Patient and/or Family Agrees t: Yes Safety Risks/Education Patient Education: Safety Issues Teaching Recipient: Patient Teaching Methods: Demonstration, Discussion Response to Teaching: Unable to Return Demonstration, Reinforcement Needed Discharge Recommendations Therapy Discharge Recommendati: Other, See Comments ([facility] facility) Time/GCodes Time In: 835 Time Out: 900 Total Billed Treatment Time: 25 Total Billed Treatment 1 visit EVModC 13 min FA 12 min VINOD FRIEDMAN PT Apr 21, 2020 10:39
[2020-04-21 11:05] LABS: BILIRUBIN,URINE NEGATIVE (NEGATIVE); CLARITY,URINE CLEAR; COLOR,URINE YELLOW; GLUCOSE, URINE (UA) NEGATIVE (NEGATIVE); KETONES,URINE NEGATIVE (NEGATIVE); LEUKOCYTE ESTERASE ,URINE NEGATIVE (NEGATIVE); NITRITE,URINE NEGATIVE (NEGATIVE); PH,URINE 5.5 (5-9); PROTEIN,URINE 2+ (NEGATIVE)
[2020-04-21 11:14] LABS: BACTERIA,URINE FEW /HPF; RBC,URINE >100 /HPF; SQUAMOUS EPITHELIAL CELL,UR RARE /HPF; URIC ACID CRYSTALS,URINE LARGE /LPF
--- NOTE | 2020-04-21 13:21 | Progress Note ---
Subjective Subjective/Events-last exam Patient states that he feels ok. He fell asleep while eating his breakfast and states that he is not hungry at this time. He took 1 bite of his breakfast. Denies any pain. States that he had a loose BM this AM and it was dark but not as dark as previously and denies any blood in his stool. Review of Systems Pulmonary: Dyspnea; No Cough Cardiovascular: No: Chest Pain, Palpitations Gastrointestinal: Diarrhea, Melena; No: Nausea, Vomiting, Abdominal Pain Genitourinary: No Dysuria, No Frequency, No Hematuria Neurological: Weakness, Incoordination Objective Exam Last Set of Vital Signs Vital Signs Date Time Temp Pulse Resp B/P (MAP) Pulse Ox O2 Delivery O2 Flow Rate FiO2 04/21/20 12:14 37.6 68 24 155/69 (97) 94 Room Air 04/19/20 11:00 Capillary Refill : Less Than 3 SecondsLess Than 3 Seconds I&O Intake and Output 04/20/20 23:59 Intake Total 2770 ml Output Total 2100 ml Balance 670 ml Intake Oral 1840 ml IV Total 850 ml Other 80 ml Output Urine Total 2100 ml # Bowel Movements 2 General: Alert, Oriented X3, No Acute Distress Lungs: Clear to Auscultation, Normal Air Movement Heart: Regular Rate, No Murmurs Abdomen: Normal Bowel Sounds, Soft, No Tenderness, No Masses Extremities: Other (2+ pitting edema bilaterally) Skin: No Rashes, No Breakdown Neuro: Normal Speech Results/Procedures Lab Laboratory Tests 04/20/20 15:10: White Blood Count 13.8H, Red Blood Count 3.38L, Hemoglobin 8.6L, Hematocrit 28L, Mean Corpuscular Volume 84, Mean Corpuscular Hemoglobin 25, Mean Corpuscular Hemoglobin Concent 30L, Red Cell Distribution Width 18.0H, Platelet Count 231, Mean Platelet Volume 11.0, Immature Granulocyte % (Auto) 1, Neutrophils (%) (Auto) 80H, Lymphocytes (%) (Auto) 6L, Monocytes (%) (Auto) 12, Eosinophils (%) (Auto) 0, Basophils (%) (Auto) 0, Neutrophils # (Auto) 11.1H, Lymphocytes # (Auto) 0.8L, Monocytes # (Auto) 1.7H, Eosinophils # (Auto) 0.1, Basophils # (Auto) 0.0, Immature Granulocyte # (Auto) 0.1 04/20/20 15:31: Glucometer 187H 04/20/20 20:31: Glucometer 200H 04/21/20 03:20: White Blood Count 14.4H, Red Blood Count 3.20L, Hemoglobin 8.1L, Hematocrit 26L, Mean Corpuscular Volume 80, Mean Corpuscular Hemoglobin 25, Mean Corpuscular Hemoglobin Concent 32, Red Cell Distribution Width 17.9H, Platelet Count 238, Mean Platelet Volume 10.6, Immature Granulocyte % (Auto) 1, Neutrophils (%) (Auto) 83H, Lymphocytes (%) (Auto) 5L, Monocytes (%) (Auto) 11, Eosinophils (%) (Auto) 1, Basophils (%) (Auto) 0, Neutrophils # (Auto) 11.9H, Lymphocytes # (Auto) 0.7L, Monocytes # (Auto) 1.6H, Eosinophils # (Auto) 0.1, Basophils # (Auto) 0.0, Immature Granulocyte # (Auto) 0.1, Neutrophils % (Manual) 89, Lymp hocytes % (Manual) 3, Monocytes % (Manual) 7, Eosinophils % (Manual) 1, Toxic Granulation 1+, Polychromasia SLIGHT, Anisocytosis SLIGHT, Microcytosis SLIGHT, Prothrombin Time 18.6H, INR Comment 1.5H, Sodium Level 138, Potassium Level 3.7, Chloride Level 109H, Carbon Dioxide Level 17L, Anion Gap 12, Blood Urea Nitrogen 37H, Creatinine 2.01H, Estimat Glomerular Filtration Rate 32, BUN/Creatinine Ratio 18, Glucose Level 176H, Calcium Level 8.6, Corrected Calcium 9.2, Phosphorus Level 2.5, Magnesium Level 2.0, Total Bilirubin 1.1H, Aspartate Amino Transf (AST/SGOT) 23, Alanine Aminotransferase (ALT/SGPT) 18, Alkaline Phosphatase 70, Total Protein 6.3L, Albumin 3.2 04/21/20 10:45: Urine Color YELLOW, Urine Clarity CLEAR, Urine pH 5.5, Urine Specific [place] 1.025H, Urine Protein 2+H, Urine Glucose (UA) NEGATIVE, Urine Ketones NEGATIVE, Urine Nitrite NEGATIVE, Urine Bilirubin NEGATIVE, Urine Urobilinogen 1.0, Urine Leukocyte Esterase NEGATIVE, Urine RBC (Auto) 3+H, Urine RBC >100H, Urine WBC 2- 5, Urine Squamous Epithelial Cells RARE, Urine Crystals PRESENTH, Urine Uric A macho Crystals LARGEH, Urine Bacteria FEWH, Urine Casts NONE, Urine Mucus NEGATIVE, Urine Culture Indicated YES 04/21/20 10:52: Glucometer 202H Microbiology 04/16/20 MRSA Screen - Final, Complete MRSA not isolated Assessment/Plan Assessment/Plan (1) Severe anemia Status: Acute Assessment & Plan: 04/20: S/p 4 units pRBCs, Goal Hgb around 10 due to CAD 04/21 1 unit ordered for today (2) Unstable angina Status: Acute Assessment & Plan: 04/20: Reviewed cath report from Dr Robbins, patient has severe occlusive disease but likely related to severe anemia, Cardiology consulted, appreciate recommendations (3) NSTEMI (non-ST elevated myocardial infarction) Status: Acute (4) CAD (coronary artery disease) Status: Acute Qualifiers: Qualified Codes: I25.110 - Atherosclerotic heart disease of [place] coronary artery with unstable angina pectoris (5) Non-sustained ventricular tachycardia Status: Acute Assessment & Plan: 04/20: Patient transitioned to PO amiodarone (6) Gastric ulcer Status: Acute Assessment & Plan: 04/20: Reviewed scope performed by Dr Aguirre, continue protonix IV, patient currently not on OAC due to bleeding ulcers and receiving pRBCs 04/21: Continue IV protonix and sulcralfate Qualifiers: Qualified Codes: K25.0 - Acute gastric ulcer with hemorrhage (7) S/P CABG x 3 Status: Chronic (8) HTN (hypertension) Status: Acute Assessment & Plan: 04/20: Holding HTN meds due to severe anemia (9) DVT prophylaxis Status: Acute Assessment & Plan: - SCDs, anticoagulation CI at this time - Guarded prognosis, will place palliative care consult Clinical Quality Measures AMI/AHF: ASA po Prior to arrival: Yes DVT/VTE Risk/Contraindication: Risk Factor Score Per Nursin RFS Level Per Nursing on Admit: 2=Moderate Other: GI BLEED SEVERINO CARRINGTON MD Apr 21, 2020 13:21
[2020-04-21] MEDS: PIPERACILLIN/TAZOBACTAM (BULK) 4.5 GM in NS (IVPB) 100 ML IV SCH ×2 (13:28→22:36)
[2020-04-21] MEDS ORDERED: D5W 100 ML BAG IV ONE (14:40)
--- NOTE | 2020-04-21 14:57 | Occupational Therapy Eval ---
OT Evaluation-General/PLF Medical Diagnosis Admission Date Apr 15, 2020 at 21:24 Medical Diagnosis: anemia/unstable angina/CARMEN Onset Date: Apr 15, 2020 Therapy Diagnosis Therapy Diagnosis: decreased ADL status, weakness Height/Weight Height (Feet): 6 Height (Inches): 0.00 Weight (Pounds): 270 Weight (Ounces): 0.0 Precautions Precautions/Isolations: Fall Prevention, Standard Precautions, Pressure Ulcer Referral Physician: Filomena Referral Reason: Evaluation/Treatment Medical History Pertinent Medical History: CABG, CAD, DM, Dementia, HTN, OA, Renal Insufficiency Current History ED due to chest pain Reviewed History: Yes Social History Home: Single Level Current Living Status: Other Family Entry Into Home: Ramp, Stairs With Railing ADL-Prior Level of Function SCALE: Activities may be completed with or without assistive devices. 0-Omnxtnxkby-sihezvo completes the activity by him/herself with no assistance from a helper. 5-Set-up or Clean-up Assistance-helper sets up or cleans up; patient completes activity. [place] assists only prior to or following the activity. 4-Supervision or Touching Assistance-helper provides verbal cues and/or touching/steadying and/or contact guard assistance as patient completes activity. Assistance may be provided throughout the activity or intermittently. 3-Partial/Moderate Assistance-helper does LESS THAN HALF the effort. [place] lifts, holds or supports trunk or limbs, but provides less than half the effort. 2-Substantial/Maximal Assistance-helper does MORE THAN HALF the effort. [place] lifts or holds trunk or limbs and provides more than half the effort. 3-Nqeeuhpmv-flzymm does ALL the effort. Patient does none of the effort to complete the activity. Or, the assistance of 2 or more helpers is required for the patient to complete the activity. If activity was not attempted, code reason: 7-Patient Refused. 9-Not Applicable-not attempted and the patient did not perform the activity before the current illness, exacerbation or injury. 10-Not Attempted due to Environmental Limitations-(lack of equipment, weather restraints, etc.). 88-Not Attempted due to Medical Conditions or Safety Concerns. ADL PLOF Comments Pt indicates he was able to bath and dress himself at PLOF, and perform functional mobility without AD (although he feels like he should have been using something to assist him). Pt has assistance with cooking and cleaning. Self Care: Needed Some Help OT Current Status Subjective Pt laying in bed, agreeable to OT tx, stating he needs to use bed cuello. Pt reports pain in back, and in R hand. Pt feels like he has broken his R hand and would not let OT near this hand. Mental Status/Objective Attachments: Amanda Catheter, IV Current Glasses/Contacts: Yes Hearing Aids: Yes Upper Extremity ROM Unable to assess RUE due to pt's report of pain and not letting OT near his R hand. LUE decreased. Upper Extremity Coordination decreased ADL-Treatment Eating (QC): 2 (Max A, pt used utensils to get food, required assistance bringing it to mouth. Pt kept attempting to bring utensil to mouth without food. OT assisted pt with getting food off of plate and to his mouth.) Toileting Hygiene (QC): 1 (Dependent to place bed cuello and with hygiene.) Other Treatments Pt laying in bed, required total assist to roll towards L side for bed cuello placement and hygiene post BM. Pt indicates he is hungry, lunch tray on table in front of pt. OT directed pt towards tray, he did not seem interested in the food. OT informed pt it was mashed potatoes and meat loaf, pt then agreeable to eating. OT assisted pt with raising HOB and positioning for meal. Pt picked up fork from tray and got mashed potatoes on utensil, on the way to his mouth food dropped from utensil onto chest. Pt unable to tell food had fallen off of utensil and brought food to chin level. Pt did not flex neck or shoulder in order for food to enter his mouth. OT assisted pt with getting food onto utensil, he again brought it to chin level. OT assisted pt with taking a few more bites of food until pt stated he was satisfied. Post tx, pt laying in bed, call light in reach and all needs met. Education OT Patient Education: Correct positioning, Energy conservation, Modified ADL techniques, Progress toward Goal/Update tx plan, Purpose of tx/functional activities, Rehab process Teaching Recipient: Patient Teaching Methods: Discussion Response to Teaching: Verbalize Understanding, Reinforcement Needed OT Fdc Goals Fdc Goals Time Frame: May 16, 2020 Eating (QC): 5 Oral Hygiene (QC): 5 Toileting Hygiene (QC): 3 Shower/Bathe Self (QC): 3 Upper Body Dressing (QC): 3 Lower Body Dressing (QC): 3 On/Off Footwear (QC): 3 Additional Goals: 1-Demonstrate ADL Tasks, 2-Verbalize Understanding, 3- ImproveStrength/Dylan 1=Demonstrate adherence to instructed precautions during ADL tasks. 2=Patient will verbalize/demonstrate understanding of assistive devices/modif ications for ADL. 3=Patient will improve strength/tolerance for activity to enable patient to perform ADL's. OT Education/Plan Problem List/Assessment Assessment: Decreased Activ Tolerance, Decreased UE Strength, Dependent Transfers, Impaired Bed Mobility, Impaired Funct Balance, Impaired I ADL's, Impaired Self-Care Skills, Restricted Funct UE ROM Discharge Recommendations Plan/Recommendations: Continue POC Therapy Discharge Recommendati: Other, See Comments (SNF) Treatment Plan/Plan of Care Treatment,Training & Education: Yes Patient would benefit from OT for education, treatment and training to promote independence in ADL's, mobility, safety and/or upper extremity function for ADL's. Plan of Care: ADL Retraining, Group Exercise/Act as Ind, UE Funct Exercise/Act Treatment Duration: May 16, 2020 Frequency: 5 times per week Estimated Hrs Per Day: .25 hour per day Rehab Potential: Guarded Time/GCodes Start Time: 14:00 Stop Time: 14:30 Total Time Billed (hr/min): 30 Billed Treatment Time 1, EVM (10'), ADL (20') JOSEFINA DAVENPORT OT Apr 21, 2020 14:57
--- NOTE | 2020-04-21 17:00 | NUR ---
Patients personal cellphone brought to daughter Agnes at her request. Patient gives verbal permission for this.
--- NOTE | 2020-04-21 17:01 | NUR ---
THIS RN CALLED PT'S DAUGHTER, OLESYA, AND PROVIDED UPDATE.
--- NOTE | 2020-04-21 18:49 | Progress Note - Cardiology ---
Cardiology SOAP Progress Note Subjective: No cp or palp or syncope Some gen malaise No n/v Objective: I&O/Vital Signs 04/21/20 04/21/20 04/21/20 04/21/20 07:00 07:57 08:00 12:14 Temp 36.7 37.6 Pulse 88 77 68 Resp 24 24 B/P (MAP) 151/70 (97) 155/69 (97) Pulse Ox 96 97 94 O2 Delivery Room Air Room Air Room Air 04/21/20 15:44 Temp 37.8 Pulse 79 Resp 22 B/P (MAP) 159/78 (105) Pulse Ox 93 O2 Delivery Room Air 04/21/20 00:00 Intake Total 1390 ml Output Total 1275 ml Balance 115 ml Weight (Pounds): 270 Weight (Ounces): 0.0 Weight (Calculated Kilograms): 122.990878 Constitutional: AAO x 3 Respiratory: chest is bilaterally symmetric, lungs clear to auscultation Cardiovascular: regular rate-rhythm, S1 and S2; No diastolic murmur, No systolic murmur Gastrointestional: soft, audible bowel sounds Extremities: normal range of motion, non-tender, normal inspection, no lower extremity edema bilateral Neurologic/Psychiatric: no motor/sensory deficits, alert, normal mood/affect, oriented x 3 Skin: normal color, warm/dry Results/Procedures: Labs Laboratory Tests 04/20/20 20:31: Glucometer 200H 04/21/20 03:20: White Blood Count 14.4H, Red Blood Count 3.20L, Hemoglobin 8.1L, Hematocrit 26L, Mean Corpuscular Volume 80, Mean Corpuscular Hemoglobin 25, Mean Corpuscular Hemoglobin Concent 32, Red Cell Distribution Width 17.9H, Platelet Count 238, Mean Platelet Volume 10.6, Immature Granulocyte % (Auto) 1, Neutrophils (%) (Auto) 83H, Lymphocytes (%) (Auto) 5L, Monocytes (%) (Auto) 11, Eosinophils (%) (Auto) 1, Basophils (%) (Auto) 0, Neutrophils # (Auto) 11.9H, Lymphocytes # (Auto) 0.7L, Monocytes # (Auto) 1.6H, Eosinophils # (Auto) 0.1, Basophils # (Auto) 0.0, Immature Granulocyte # (Auto) 0.1, Neutrophils % (Manual) 89, Lymphocytes % (Manual) 3, Monocytes % (Manual) 7, Eosinophils % (Manual) 1, Toxic Granulation 1+, Polychromasia SLIGHT, Anisocytosis SLIGHT, Microcytosis SLIGHT, Prothrombin Time 18.6H, INR Comment 1.5H, Sodium Level 138, Potassium [place] 3.7, Chloride Level 109H, Carbon Dioxide Level 17L, Anion Gap 12, Blood Urea Nitrogen 37H, Creatinine 2.01H, Estimat Glomerular Filtration Rate 32, BUN/Creatinine Ratio 18, Glucose Level 176H, Calcium Level 8.6, Corrected Calcium 9.2, Phosphorus Level 2.5, Magnesium Level 2.0, Total Bilirubin 1.1H, Aspartate Amino Transf (AST/SGOT) 23, Alanine Aminotransferase (ALT/SGPT) 18, Alkaline Phosphatase 70, Total Protein 6.3L, Albumin 3.2 04/21/20 10:45: Urine Color YELLOW, Urine Clarity CLEAR, Urine pH 5.5, Urine Specific [place] 1.025H, Urine Protein 2+H, Urine Glucose (UA) NEGATIVE, Urine Ketones NEGATIVE, Urine Nitrite NEGATIVE, Urine Bilirubin NEGATIVE, Urine Urobilinogen 1.0, Urine Leukocyte Esterase NEGATIVE, Urine RBC (Auto) 3+H, Urine RBC >100H, Urine WBC 2- 5, Urine Squamous Epithelial Cells RARE, Urine Crystals PRESENTH, Urine Uric Acid Crystals LARGEH, Urine Bacteria FEWH, Urine Casts NONE, Urine Mucus NEGATIVE, Urine Culture Indicated YES 04/21/20 10:52: Glucometer 202H 04/21/20 16:06: Glucometer 206H Microbiology 04/21/20 Blood Culture - Preliminary, Resulted No growth 04/16/20 MRSA Screen - Final, Complete MRSA not isolated Laboratory Tests 04/20/20 03:26 04/20/20 15:10 04/21/20 03:20 A/P: Assessment: CAD. Admitted with NSTEMI and card cath on 04/18/[address] Robbins showed severe occlusive left main and three vessel disease with patent grafts to LAD, D1 and OM1. RCA is not grafted with faint collaterals from the left. No PCI done. NSTEMI likely due to severe anemia and in the presence of small or distal vessel disease H/o PAF H/o halfway treatment with ASA, Plavix and Eliquis. On 12/21/20, Plavix stopped, heparin stopped, and restarted a lowered dose of Eliquis (due to h/o GI bleed) NSVT - Amiodarone bolus and infusion. Now on oral amiodarone and metoprolol Echocardiogram of Apr 16, [address] Barrow showed LVEF 55-65%. Grade 2 diastolic dysfunction. LA and RA dialted. Mod MR. Ao valve thickening consistent with sclerosis, mild regurg. Mod TR. PASP 40-45mmHg Worsening anemia. Severe anemia, probably GI loss. Dr. Aguirre endoscopy on Apr 16, 2020 Reflux esophagitis stage II, small hiatal hernia approximately 2 cm in size, severe gastritis of the stomach antrum with small multiple prepyloric ulcers, two of which were actively bleeding. Underwent biopsy and hemostasis with cautery as well as placement of clips Acute on chronic renal failure - worsening renal function today Acute and chronic diastolic congestive heart failure Right bundle branch block, chronic Hypertension Hyperlipidemia Mild bilateral carotid artery stenosis, last carotid ultrasound was done in December 2018 Diabetes mellitus-managed by the [facility] [place] Obesity, BMI 40 Plan: * Complex management due to multiple comorbidities the treatments of which contradict each other * Because there appears to ongoing active bleeding, we have already de- intensified his antiplatelet and anticoag regimen (see above). We need to continue some antiplatelet and some anticoag for his known CAD and PAF * Adjust antihypertensive regimen as indicated * Hgb continues to fall despite multiple transfusions - management per Medical services * Monitor labs closely Clinical Quality Measures AMI/AHF: ASA po Prior to arrival: Yes REESE DEVI MD FACP FAC CCDS Apr 21, 2020 18:49
[2020-04-21] MEDS: ACETAMINOPHEN 325 MG TABLET PO PRN (20:39)
[2020-04-21] MEDS: SIMvastatin 20 MG (ZOCOR) TAB PO SCH (20:39)
--- NOTE | 2020-04-21 21:34 | Diagnostic Imaging Report ---
INDICATION: Wrist pain. 3 views were obtained FINDINGS: The alignment is normal. There are moderate degenerative changes. There is no acute fracture or dislocation. The soft tissues are unremarkable. IMPRESSION: Moderate degenerative changes in the wrist however no acute fracture or dislocation. Dictated by: Dictated on workstation # [id number]
[2020-04-22 00:45] VITALS: BP 143/66
[2020-04-22 03:36] LABS: BASOPHILS % (AUTO) 0 % (0-10); EOSINOPHILS # (AUTO) 0.2 10^3/uL (0.0-0.3); EOSINOPHILS % (AUTO) 1 % (0-10); HEMATOCRIT 27 % (40-54); HEMOGLOBIN 8.5 g/dL (13.3-17.7); LYMPHOCYTES % (AUTO) 7 % (12-44); MEAN CORPUSCULAR HEMOGLOBIN 25 pg (25-34); MEAN CORPUSCULAR HGB CONC 31 g/dL (32-36); MEAN CORPUSCULAR VOLUME 80 fL (80-99); MEAN PLATELET VOLUME 10.9 fL (9.0-12.2); MONOCYTES # (AUTO) 1.4 10^3/uL (0.0-1.0); MONOCYTES % (AUTO) 11 % (0-12); NEUTROPHILS # (AUTO) 10.8 10^3/uL (1.8-7.8); NEUTROPHILS % (AUTO) 80 % (42-75); PLATELET COUNT 265 10^3/uL (130-400); WHITE BLOOD COUNT 13.5 10^3/uL (4.3-11.0)
[2020-04-22 03:46] LABS: POTASSIUM 3.3 MMOL/L (3.6-5.0)
[2020-04-22 03:51] LABS: CREATININE SERUM 1.98 MG/DL (0.60-1.30); PHOSPHORUS 2.7 MG/DL (2.3-4.7)
[2020-04-22 04:27] VITALS: BP 167/69
--- NOTE | 2020-04-22 05:51 | Pulmonary Progress Note ---
Subjective Time Seen by a Provider: 05:47 Subjective/Events-last exam Pt is more sedated today. Sepsis Event Evaluation Height, Weight, BMI Height: 6'0.00" Weight: 270lbs. 0.0oz. 122.826680zy; 41.69 BMI Method:Stated Exam Exam Vital Signs Date Time Temp Pulse Resp B/P (MAP) Pulse Ox O2 Delivery O2 Flow Rate FiO2 04/22/20 04:27 37.2 76 26 167/69 (101) 94 Room Air 04/22/20 01:00 67 04/22/20 00:45 37.1 68 26 143/66 (91) 94 Room Air 04/21/20 21:09 36.9 04/21/20 20:39 38.1 04/21/20 20:00 95 Room Air 04/21/20 19:45 82 04/21/20 19:33 38.1 81 21 150/63 (92) 96 Room Air 04/21/20 15:44 37.8 79 22 159/78 (105) 93 Room Air 04/21/20 12:14 37.6 68 24 155/69 (97) 94 Room Air 04/21/20 08:00 97 Room Air 04/21/20 07:57 36.7 77 24 151/70 (97) 96 Room Air 04/21/20 07:00 88 I & O 04/22/20 07:00 Intake Total 920 ml Output Total 1025 ml Balance -105 ml Height & Weight Height: 6'0.00" Weight: 270lbs. 0.0oz. 122.893396dl; 41.69 BMI Method:Stated General Appearance: No Apparent Distress, WD/WN, Chronically ill HEENT: PERRL/EOMI, Normal ENT Inspection, Pharynx Normal, Moist Mucous Membranes Neck: Full Range of Motion Respiratory: Chest Non Tender, Lungs Clear, Normal Breath Sounds, No Accessory Muscle Use, No Respiratory Distress Cardiovascular: Regular Rate, Rhythm, No Edema, No Gallop, No JVD, No Murmur, Normal Peripheral Pulses Capillary Refill: Less Than 3 Seconds Extremity: Normal Inspection, No Pedal Edema Neurologic/Psychiatric: Alert, Oriented x3, No Motor/Sensory Deficits, Normal Mood/Affect Skin: Normal Color, Warm/Dry Lymphatic: No Adenopathy Results Lab Laboratory Tests 04/20/20 15:10 04/21/20 03:20 04/22/20 03:12 Assessment/Plan Assessment/Plan Runs of Vtach while on 4th s/p heart cath 04/18 - no stents placed -cardiology following -Amiodarone [place] -Cardiology following Psychosis with hx of dementia -hold Risperadol secondary to sedation UTI -Continue Zosyn Renal failure -Monitor -Currently on NS at 100cc/hr Anemia with PUD s/p EGD -S/p 4 total units of PRBC -Protonix -Surgery is following Hypokalemia -Replace CAD RUBY FALK DO Apr 22, 2020 05:51
[2020-04-22] MEDS: POTASSIUM CL 10MEQ/50ML IVPB 50 ML IV SCH ×7 (05:58→13:40)
[2020-04-22] MEDS: KCL 20 MEQ TAB (K-DUR) PO SCH (05:58)
[2020-04-22] MEDS: MAGNESIUM 1 GM/100 ML IVPB 100 ML IV SCH (05:58)
[2020-04-22] MEDS: SUCRALFATE 1 GM (CARAFATE) TAB PO SCH ×4 (06:48→21:06)
[2020-04-22] MEDS: ACETAMINOPHEN 325 MG TABLET PO PRN ×2 (06:49→13:01)
[2020-04-22] MEDS: inSUlin ASPART (NovoLOG) 1 UNIT/0.01 ML (CHARGE PER UNIT) SC SCH ×4 (06:49→21:06)
[2020-04-22] MEDS: PIPERACILLIN/TAZOBACTAM (BULK) 4.5 GM in NS (IVPB) 100 ML IV SCH ×3 (06:49→21:05)
[2020-04-22 07:33] VITALS: BP 172/81
--- NOTE | 2020-04-22 08:48 | Progress Note - Cardiology ---
Cardiology SOAP Progress Note Subjective: Sitting up in bed. No c/o CP, SOB or palpitations. Tearful this morning, wants to talk to his this morning Objective: I&O/Vital Signs Weight (Pounds): 270 Weight (Ounces): 0.0 Weight (Calculated Kilograms): 122.801552 Constitutional: AAO x 3 Respiratory: chest is bilaterally symmetric, lungs clear to auscultation Cardiovascular: irregularly irregular, S1 and S2; No diastolic murmur, No syst olic murmur Gastrointestional: No tender; soft, audible bowel sounds Extremities: normal range of motion, non-tender, normal inspection, other (mild to mod bilat LE swelling) Neurologic/Psychiatric: no motor/sensory deficits, alert, normal mood/affect, oriented x 3 Skin: normal color, warm/dry Results/Procedures: Labs Microbiology 04/22/20 Urine Culture - Final, Complete NO GROWTH 04/21/20 Blood Culture - Final, Complete No growth 04/16/20 MRSA Screen - Final, Complete MRSA not isolated A/P: Assessment: CAD. Admitted with NSTEMI and card cath on 04/18/[address] Robbins showed severe occlusive left main and three vessel disease with patent grafts to LAD, D1 and OM1. RCA is not grafted with faint collaterals from the left. No PCI done. NSTEMI likely due to severe anemia and in the presence of small or distal vessel disease H/o PAF - currently in a-fib (04-22-2020) H/o mcfp treatment with ASA, Plavix and Eliquis. On 04/20/20, Plavix stopped, heparin stopped, and restarted a lowered dose of Eliquis (due to h/o GI bleed) NSVT - Amiodarone bolus and infusion. Now on oral amiodarone and metoprolol Echocardiogram of Apr 16, [address] Barrow showed LVEF 55-65%. Grade 2 diastolic dysfunction. LA and RA dialted. Mod MR. Ao valve thickening consistent with sclerosis, mild regurg. Mod TR. PASP 40-45mmHg Worsening anemia. Severe anemia, probably GI loss. Dr. Aguirre endoscopy on Apr 16, 2020 Reflux esophagitis stage II, small hiatal hernia approximately 2 cm in size, severe gastritis of the stomach antrum with small multiple prepyloric ulcers, two of which were actively bleeding. Underwent biopsy and hemostasis with cautery as well as placement of clips Acute on chronic renal failure - worsening renal function today Acute and chronic diastolic congestive heart failure Right bundle branch block, chronic Hypertension Hyperlipidemia Mild bilateral carotid artery stenosis, last carotid ultrasound was done in December 2018 Diabetes mellitus-managed by the [facility] Obesity, BMI 40 Plan: * Complex management due to multiple comorbidities the treatments of which contradict each other * Because there appears to ongoing active bleeding, we have already de- intensified his antiplatelet and anticoag regimen (see above). We need to continue some antiplatelet and some anticoag for his known CAD and PAF * Adjust antihypertensive regimen as indicated * Hgb continues to fall despite multiple transfusions - management per Medical services * Currently in a-fib with intermittent elevated rates - increase BB * Replace potassium * Monitor labs closely Clinical Quality Measures AMI/AHF: ASA po Prior to arrival: Yes NASIMA SÁNCHEZ Apr 22, 2020 08:48
[2020-04-22] MEDS ORDERED: meTOprolol TARTRATE 50 MG (LOPRESSOR) TAB ONE (09:08)
[2020-04-22] MEDS: meTOprolol TARTRATE 50 MG (LOPRESSOR) TAB PO SCH ×2 (09:12→21:06)
[2020-04-22] MEDS: LOSARTAN 100 MG (COZAAR) TABLET PO SCH (09:13)
[2020-04-22] MEDS: ASPIRIN E.C. 81 MG (ECOTRIN) TAB PO SCH (09:13)
[2020-04-22] MEDS: APIXABAN 2.5 MG (ELIQUIS) TABLET PO SCH ×2 (09:13→21:06)
[2020-04-22] MEDS: AMIODARONE 200 MG (CORDARONE) TAB PO SCH ×2 (09:13→21:06)
[2020-04-22] MEDS: PANTOPRAZOLE 40 MG (PROTONIX) VIAL IV SCH ×2 (09:13→21:06)
--- NOTE | 2020-04-22 10:25 | Occupational Ther Daily Note ---
OT Current Status-Daily Note Subjective Pt alert, lying in bed. Pt agrees to therapy. No c/o pain at this time. Mental Status/Objective Patient Orientation: Person, Place, Time, Situation Attachments: Amanda Catheter, IV, Oxygen, Telemetry ADL-Treatment Therapy Code Descriptions/Definitions Functional Yell Measure: 0=Not Assessed/NA 4=Minimal Assistance 1=Total Assistance 5=Supervision or Setup 2=Maximal Assistance 6=Modified Yell 3=Moderate Assistance 7=Complete IndependenceSCALE: Activities may be completed with or without assistive devices. 7-Juycjetoqc-pjbuuum completes the activity by him/herself with no assistance from a helper. 5-Set-up or Clean-up Assistance-helper sets up or cleans up; patient completes activity. [place] assists only prior to or following the activity. 4-Supervision or Touching Assistance-helper provides verbal cues and/or touching/steadying and/or contact guard assistance as patient completes activity. Assistance may be provided throughout the activity or intermittently. 3-Partial/Moderate Assistance-helper does LESS THAN HALF the effort. [place] lifts, holds or supports trunk or limbs, but provides less than half the effort. 2-Substantial/Maximal Assistance-helper does MORE THAN HALF the effort. [place] lifts or holds trunk or limbs and provides more than half the effort. 4-Oyafwbftm-eepjcc does ALL the effort. Patient does none of the effort to complete the activity. Or, the assistance of 2 or more helpers is required for the patient to complete the activity. If activity was not attempted, code reason: 7-Patient Refused. 9-Not Applicable-not attempted and the patient did not perform the activity before the current illness, exacerbation or injury. 10-Not Attempted due to Environmental Limitations-(lack of equipment, weather restraints, etc.). 88-Not Attempted due to Medical Conditions or Safety Concerns. Other Treatment Increased edema in B hands, edema massage to B hands (R hand more edematous than L). Pt allowed AAROM to each UE 1 set 10 reps. Movement completed slowly and increased ROM with movement. After session, pt lying in bed with call light/phone in reach. All needs met in room. Nrsg in room. OT Manager Shift Goals Long-Term Goals Time Frame: May 16, 2020 Eating (QC): 5 Oral Hygiene (QC): 5 Toileting Hygiene (QC): 3 Shower/Bathe Self (QC): 3 Upper Body Dressing (QC): 3 Lower Body Dressing (QC): 3 On/Off Footwear (QC): 3 Additional Goals: 1-Demonstrate ADL Tasks, 2-Verbalize Understanding, 3- ImproveStrength/Dylan 1=Demonstrate adherence to instructed precautions during ADL tasks. 2=Patient will verbalize/demonstrate understanding of assistive devices/modifications for ADL. 3=Patient will improve strength/tolerance for activity to enable patient to perform ADL's. OT Education/Plan Problem List/Assessment Assessment: Decreased Activ Tolerance, Decreased UE Strength, Dependent Transfers, Impaired Bed Mobility, Impaired Self-Care Skills, Restricted Funct UE ROM Discharge Recommendations Plan/Recommendations: Continue POC Treatment Plan/Plan of Care Patient would benefit from OT for education, treatment and training to promote independence in ADL's, mobility, safety and/or upper extremity function for ADL's. Plan of Care: ADL Retraining, Group Exercise/Act as Ind, UE Funct Exercise/Act Treatment Duration: May 16, 2020 Frequency: 5 times per week Estimated Hrs Per Day: .25 hour per day Rehab Potential: Guarded Time/GCodes Start Time: 09:45 Stop Time: 10:00 Total Time Billed (hr/min): 15 Billed Treatment Time 1 visit-FA 1 (15 min) MIKE NICOLE Apr 22, 2020 10:25
--- NOTE | 2020-04-22 11:50 | Progress Note - Cardiology ---
Cardiology SOAP Progress Note Subjective: No cp or palp or syncope or shortness of breath Gen malaise present No n/v Objective: I&O/Vital Signs 04/22/20 04/22/20 04/22/20 04/22/20 00:45 01:00 04:27 06:49 Temp 37.1 37.2 37.1 Pulse 68 67 76 Resp 26 26 B/P (MAP) 143/66 (91) 167/69 (101) Pulse Ox 94 94 O2 Delivery Room Air Room Air 04/22/20 04/22/20 07:00 07:33 Temp 36.5 Pulse 98 86 Resp 16 B/P (MAP) 172/81 (111) Pulse Ox 90 O2 Delivery Room Air 04/22/20 00:00 Intake Total 1800 ml Output Total 1025 ml Balance 775 ml Weight (Pounds): 270 Weight (Ounces): 0.0 Weight (Calculated Kilograms): 122.553723 Constitutional: AAO x 3 Respiratory: chest is bilaterally symmetric, lungs clear to auscultation Cardiovascular: irregularly irregular, S1 and S2; No diastolic murmur, No systolic murmur Gastrointestional: No tender; soft, audible bowel sounds Extremities: normal range of motion, non-tender, normal inspection, other (mild to mod bilat LE swelling) Neurologic/Psychiatric: no motor/sensory deficits, alert, normal mood/affect, oriented x 3 Skin: normal color, warm/dry Results/Procedures: Labs Laboratory Tests 04/21/20 16:06: Glucometer 206H 04/21/20 21:36: Glucometer 179H 04/22/20 03:12: White Blood Count 13.5H, Red Blood Count 3.41L, Hemoglobin 8.5L, Hematocrit 27L, Mean Corpuscular Volume 80, Mean Corpuscular Hemoglobin 25, Mean Corpuscular Hemoglobin Concent 31L, Red Cell Distribution Width 18.4H, Platelet Count 265, Mean Platelet Volume 10.9, Immature Granulocyte % (Auto) 1, Neutrophils (%) (Auto) 80H, Lymphocytes (%) (Auto) 7L, Monocytes (%) (Auto) 11, Eosinophils (%) (Auto) 1, Basophils (%) (Auto) 0, Neutrophils # (Auto) 10.8H, Lymphocytes # (Auto) 1.0, Monocytes # (Auto) 1.4H, Eosinophils # (Auto) 0.2, Basophils # (Auto) 0.0, Immature Granulocyte # (Auto) 0.1, Sodium Level 141, Potassium Level 3.3L, Chloride Level 110H, Carbon Dioxide Level 17L, Anion Gap 14, Blood Urea Nitrogen 39H, Creatinine 1.98H, Estimat Glomerular Filtration Rate 33, BUN/Creatinine Ratio 20, Glucose Level 187H, Calcium Level 9.0, Phosphorus Level 2.7, Magnesium Level 2.0 04/22/20 08:35: Lactic Acid Level 0.92 04/22/20 10:58: Glucometer 202H Microbiology 04/21/20 Blood Culture - Preliminary, Resulted No growth 04/16/20 MRSA Screen - Final, Complete MRSA not isolated Laboratory Tests 04/20/20 15:10 04/21/20 03:20 04/22/20 03:12 A/P: Assessment: CAD. Admitted with NSTEMI and card cath on 04/18/[address] Robbins showed severe occlusive left main and three vessel disease with patent grafts to LAD, D1 and OM1. RCA is not grafted with faint collaterals from the left. No PCI done. NSTEMI likely due to severe anemia and in the presence of small or distal vessel disease H/o PAF - currently in a-fib (04-22-2020) H/o detention treatment with ASA, Plavix and Eliquis. On 04/20/20, Plavix stopped, heparin stopped, and restarted a lowered dose of Eliquis (due to h/o GI bleed) NSVT - Amiodarone bolus and infusion. Now on oral amiodarone and metoprolol Echocardiogram of Apr 16, [address] Barrow showed LVEF 55-65%. Grade 2 diastolic dysfunction. LA and RA dialted. Mod MR. Ao valve thickening consistent with sclerosis, mild regurg. Mod TR. PASP 40-45mmHg Worsening anemia. Severe anemia, probably GI loss. Dr. Aguirre endoscopy on Apr 16, 2020 Reflux esophagitis stage II, small hiatal hernia approximately 2 cm in size, severe gastritis of the stomach antrum with small multiple prepyloric ulcers, two of which were actively bleeding. Underwent biopsy and hemostasis with cautery as well as placement of clips Acute on chronic renal failure - worsening renal function today Acute and chronic diastolic congestive heart failure Right bundle branch block, chronic Hypertension Hyperlipidemia Mild bilateral carotid artery stenosis, last carotid ultrasound was done in December 2018 Diabetes mellitus-managed by the [facility] Obesity, BMI 40 Plan: * Currently in a-fib with intermittent elevated rates - increase BB * Complex management due to multiple comorbidities the treatments of which contradict each other * Because there appears to ongoing active bleeding, we have already de- intensified his antiplatelet and anticoag regimen (see above). We need to continue some antiplatelet and some anticoag for his known CAD and PAF * Adjust antihypertensive regimen as indicated * Hgb continues to fall despite multiple transfusions - management per Medical services * Replace potassium * Monitor labs closely Clinical Quality Measures AMI/AHF: ASA po Prior to arrival: Yes REESE DEVI MD FACP FAC CCDS Apr 22, 2020 11:50
--- NOTE | 2020-04-22 12:00 | NUR ---
Care assumed of patient from NANCY Avina
[2020-04-22] MEDS: LACTATED RINGERS 1,000 ML IV SCH ×2 (12:15→18:33)
[2020-04-22 12:39] VITALS: BP 170/84
--- NOTE | 2020-04-22 13:47 | Progress Note - Hospitalist ---
Subjective HPI/CC On Admission Date Seen by Provider: Apr 22, 2020 Time Seen by Provider: 12:00 CC: GIB with chest pain HPI: This is a 79yoWM clinic patient of [facility] who had a recent stent placed while visiting family 5 months ago in [place] who presents to the ER with chest pain indicative of unstable angina. Patient was found to have low hgb 6.7 and reports passing melena for the past 2 months. Eliquis was stopped and will not be restarted per Cardiology. Patient was given 2 units of blood last night and Dr Barrow ordered 2 more units to get hgb 10 due to unstable angina and in need of EGD today so cardiac cath can be preformed. Subjective/Events-last exam Called to bedside by RN due to fever and severe weakness and delusions of his Patient can't move his arms Dr Butt informed me that he was not doing well and overall declining Updated daughter Agnes regarding the CT scan I obtained revealing subacute embolic CVA's due to unable to maintain OAC last week due to massive GIB. Updated everyone on the possibility of decline. Review of Systems General: Fatigue, Malaise Neurological: Confusion Focused Exam Lactate Level 04/22/20 08:35: Lactic Acid Level 0.92 Objective Exam Vital Signs Vital Signs Date Time Temp Pulse Resp B/P (MAP) Pulse Ox O2 Delivery O2 Flow Rate FiO2 04/23/20 04:00 36.5 75 20 146/63 (90) 94 Room Air 04/19/20 11:00 Capillary Refill : Less Than 3 SecondsLess Than 3 Seconds General Appearance: No Apparent Distress, WD/WN, Chronically ill, Obese Respiratory: Decreased Breath Sounds Cardiovascular: Irregularly Irregular, Tachycardia Gastrointestinal: Normal Bowel Sounds Neurologic/Psychiatric: Alert, Disoriented, Motor Weakness (all extremities) Results/Procedures Lab Patient resulted labs reviewed. 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 04/22/20 with confusion and weakness Plan: EGD today Cath tomorrow Monitor hgb 04/17/20: EGD revealed gastric ulcers actively bleeding Cardiac cath tomorrow 04/19/20: Heparin drip due to elevated troponin but no intervention on cath since no definite lesion Amio drip due to V tach 04/22/20: PT OT Abx Monitor closely Guarded prognosis Need living will papers Diagnosis/Problems Diagnosis/Problems (1) Unstable angina Status: Acute (2) Anemia Status: Acute Qualifiers: Anemia type: iron deficiency Iron deficiency anemia type: chronic blood loss Qualified Codes: D50.0 - Iron deficiency anemia secondary to blood loss (chronic) (3) Chest pain Status: Acute (4) Acute kidney injury Status: Acute Clinical Quality Measures AMI/AHF: ASA po Prior to arrival: Yes DVT/VTE Risk/Contraindication: Risk Factor Score Per Nursin RFS Level Per Nursing on Admit: 2=Moderate Other: GI BLEED TEJINDER LUNA DO Apr 22, 2020 13:47
[2020-04-22 14:29] LABS: BILIRUBIN,URINE NEGATIVE (NEGATIVE); CLARITY,URINE CLEAR; COLOR,URINE YELLOW; GLUCOSE, URINE (UA) NEGATIVE (NEGATIVE); KETONES,URINE NEGATIVE (NEGATIVE); LEUKOCYTE ESTERASE ,URINE NEGATIVE (NEGATIVE); NITRITE,URINE NEGATIVE (NEGATIVE); PH,URINE 5.5 (5-9); PROTEIN,URINE 2+ (NEGATIVE)
[2020-04-22 14:43] LABS: ABG BASE EXCESS -2.9 MMOL/L (-2.5-2.5); ABG OXYGEN SATURATION 96 % (94-100); ABG PCO2 29 MMHG (35-45); ABG PH 7.45 (7.37-7.43); ABG PO2 74 MMHG (79-93); ABG TCO2 21.5 MMOL/L (21.0-31.0)
[2020-04-22 14:43] LABS: BACTERIA,URINE MODERATE /HPF; CALCIUM OXALATE CRYSTALS,UR MODERATE /LPF; RBC,URINE TNTC /HPF
[2020-04-22 14:44] LABS: ALLENS TEST YES-POS; INSPIRED O2 2L; PATIENT TEMP 36.4; VENTILATOR NO
--- NOTE | 2020-04-22 16:01 | Diagnostic Imaging Report ---
INDICATION: Fever. COMPARISON: 04/21/2020 FINDINGS: Single frontal view of the chest demonstrates persistent marked cardiomegaly. Pulmonary vasculature however is within normal limits. Sternotomy wires are noted. The lungs are well aerated and clear. No large pleural effusion or pneumothorax is seen. The visualized osseous structures show no acute abnormalities. IMPRESSION: 1. Persistent cardiomegaly, but no evidence of failure or focal infiltrate. Dictated by: Dictated on workstation # [id number]
--- NOTE | 2020-04-22 16:29 | Diagnostic Imaging Report ---
EXAMINATION: CT head without contrast. TECHNIQUE: Multiple contiguous axial images were obtained through the brain without the use of intravenous contrast. All CT scans use one or more of the following dose optimizing techniques: automated exposure control, MA and/or KvP adjustment based on a patient size and exam type, or iterative reconstruction. HISTORY: Altered mental status. COMPARISON: None available. FINDINGS: There is hypoattenuation in the right inferior frontal lobe and the anterior cerebral artery territory. There is age related cerebral atrophy with ex vacuo dilation of the ventricles. There is an area of hypoattenuation in the left cerebellar hemisphere as well. No mass effect or midline shift. The ventricles are normal in size and configuration. Basilar cisterns are patent. There are no intra- or extra-axial fluid collections. There is no intracranial hemorrhage. The orbits are normal. Paranasal sinuses are normal. Mastoid air cells are clear. No soft tissue abnormality is seen. No osseous lesions or fractures are seen. IMPRESSION: 1. Hypoattenuation in the right anterior cerebral artery territory and left cerebellum, consistent with ryliuzac-wp-[id number] infarcts. Dictated by: Dictated on workstation # [id number]
--- NOTE | 2020-04-22 16:46 | Progress Note ---
Subjective Subjective/Events-last exam Patient states that he feels ok today. He is very weak and requiring help with ADLs. Tolerating PO diet but decreased appetite and needs help with feeding. Review of Systems Pulmonary: Dyspnea; No Cough Cardiovascular: Palpitations, Edema; No: Chest Pain Gastrointestinal: Diarrhea, Melena Musculoskeletal: arm pain Neurological: Weakness, Incoordination Focused Exam Lactate Level 04/22/20 08:35: Lactic Acid Level 0.92 Objective Exam Last Set of Vital Signs Vital Signs Date Time Temp Pulse Resp B/P (MAP) Pulse Ox O2 Delivery O2 Flow Rate FiO2 04/22/20 13:48 36.4 04/22/20 12:55 68 04/22/20 12:39 16 170/84 (112) 95 Room Air 04/19/20 11:00 Capillary Refill : Less Than 3 SecondsLess Than 3 Seconds I&O Intake and Output 04/22/20 00:00 Intake Total 2220 ml Output Total 1825 ml Balance 395 ml Intake Oral 1100 ml IV Total 1120 ml Output Urine Total 1825 ml # Bowel Movements 3 General: Alert, Oriented X3, Mild Distress Lungs: Clear to Auscultation, Normal Air Movement Heart: Other (Irregularly iregular rate, no murmurs) Abdomen: Normal Bowel Sounds, Soft, No Tenderness, No Masses Extremities: Other (2+ pitting edema bilaterally) Skin: No Rashes, No Breakdown Neuro: Normal Speech Results/Procedures Lab Laboratory Tests 04/21/20 21:36: Glucometer 179H 04/22/20 03:12: White Blood Count 13.5H, Red Blood Count 3.41L, Hemoglobin 8.5L, Hematocrit 27L, Mean Corpuscular Volume 80, Mean Corpuscular Hemoglobin 25, Mean Corpuscular Hemoglobin Concent 31L, Red Cell Distribution Width 18.4H, Platelet Count 265, Mean Platelet Volume 10.9, Immature Granulocyte % (Auto) 1, Neutrophils (%) (Auto) 80H, Lymphocytes (%) (Auto) 7L, Monocytes (%) (Auto) 11, Eosinophils (%) (Auto) 1, Basophils (%) (Auto) 0, Neutrophils # (Auto) 10.8H, Lymphocytes # (Auto) 1.0, Monocytes # (Auto) 1.4H, Eosinophils # (Auto) 0.2, Basophils # (Auto) 0.0, Immature Granulocyte # (Auto) 0.1, Sodium Level 141, Potassium Level 3.3L, Chloride Level 110H, Carbon Dioxide Level 17L, Anion Gap 14, Blood Urea Nitrogen 39H, Creatinine 1.98H, Estimat Glomerular Filtration Rate 33, BUN/Creatinine Ratio 20, Glucose Level 187H, Calcium Level 9.0, Phosphorus Level 2.7, Magnesium Level 2.0, Procalcitonin 0.50H 04/22/20 08:35: Lactic Acid Level 0.92 04/22/20 10:58: Glucometer 202H 04/22/20 14:20: Urine Color YELLOW, Urine Clarity CLEAR, Urine pH 5.5, Urine Specific [place] 1.025H, Urine Protein 2+H, Urine Glucose (UA) NEGATIVE, Urine Ketones NEGATIVE, Urine Nitrite NEGATIVE, Urine Bilirubin NEGATIVE, Urine Urobilinogen 1.0, Urine Leukocyte Esterase NEGATIVE, Urine RBC (Auto) 3+H, Urine RBC TNTCH, Urine WBC 5- 10H, Urine Crystals PRESENTH, Urine Calcium Oxalate Crystals MODERATEH, Urine Bacteria MODERATEH, Urine Casts NONE, Urine Mucus NEGATIVE, Urine Culture Indicated YES 04/22/20 14:35: Blood Gas Puncture Site RR, Blood Gas Patient Temperature 36.4, Arterial Blood pH 7.45H, Arterial Blood Partial Pressure CO2 29L, Arterial Blood Partial Pressure O2 74L, Arterial Blood HCO3 21L, Arterial Blood Total CO2 21.5, Arterial Blood Oxygen Saturation 96, Arterial Blood Base Excess -2.9L, Talon Test YES-POS, Blood Gas Ventilator Setting NO, Blood Gas Inspired Oxygen 2L 04/22/20 16:26: Glucometer 200H Microbiology 04/21/20 Blood Culture - Preliminary, Resulted No growth 04/16/20 MRSA Screen - Final, Complete MRSA not isolated Assessment/Plan Assessment/Plan (1) Severe anemia Status: Acute Assessment & Plan: 04/20: S/p 4 units pRBCs, Goal Hgb around 10 due to CAD 04/21 1 unit ordered for today 04/22: Continue to be anemic and likely has active bleeding, PPI and Carafate, off anticoagulation (2) Unstable angina Status: Acute Assessment & Plan: 04/20: Reviewed cath report from Dr Robbins, patient has severe occlusive disease but likely related to severe anemia, Cardiology consulted, appreciate recommendations (3) NSTEMI (non-ST elevated myocardial infarction) Status: Acute (4) CAD (coronary artery disease) Status: Acute Qualifiers: Qualified Codes: I25.110 - Atherosclerotic heart disease of [place] coronary artery with unstable angina pectoris (5) Non-sustained ventricular tachycardia Status: Acute Assessment & Plan: 04/20: Patient transitioned to PO amiodarone (6) Gastric ulcer Status: Acute Assessment & Plan: 04/20: Reviewed scope performed by Dr Aguirre, continue protonix IV, patient currently not on OAC due to bleeding ulcers and receiving pRBCs 04/21: Continue IV protonix and sulcralfate Qualifiers: Qualified Codes: K25.0 - Acute gastric ulcer with hemorrhage (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
[2020-04-22 18:35] VITALS: BP 137/64
[2020-04-22 20:00] VITALS: BP 153/78
[2020-04-22] MEDS: SIMvastatin 20 MG (ZOCOR) TAB PO SCH (21:06)
[2020-04-22] MEDS: DICLOFENAC 1% GEL 100 GM (VOLTAREN) TUBE TOP SCH (22:21)
[2020-04-23] VITALS (7 sets, daily range): BP systolic 146–195; BP diastolic 63–102
[2020-04-23] MEDS: morphine INJ 4 MG/ML 1 ML (VIAL/SYRINGE) IVP PRN ×3 (03:05→14:03)
[2020-04-23] MEDS: PIPERACILLIN/TAZOBACTAM (BULK) 4.5 GM in NS (IVPB) 100 ML IV SCH ×3 (06:34→22:12)
[2020-04-23] MEDS: inSUlin ASPART (NovoLOG) 1 UNIT/0.01 ML (CHARGE PER UNIT) SC SCH ×4 (06:34→22:13)
[2020-04-23] MEDS: SUCRALFATE 1 GM (CARAFATE) TAB PO SCH ×4 (06:34→21:03)
[2020-04-23 07:02] LABS: BASOPHILS # (AUTO) 0.1 10^3/uL (0.0-0.1); BASOPHILS % (AUTO) 0 % (0-10); EOSINOPHILS # (AUTO) 0.4 10^3/uL (0.0-0.3); EOSINOPHILS % (AUTO) 2 % (0-10); HEMATOCRIT 23 % (40-54); HEMOGLOBIN 7.1 g/dL (13.3-17.7); LYMPHOCYTES # (AUTO) 1.3 10^3/uL (1.0-4.0); LYMPHOCYTES % (AUTO) 8 % (12-44); MEAN CORPUSCULAR HEMOGLOBIN 25 pg (25-34); MEAN CORPUSCULAR HGB CONC 31 g/dL (32-36); MEAN CORPUSCULAR VOLUME 81 fL (80-99); MEAN PLATELET VOLUME 10.9 fL (9.0-12.2); MONOCYTES # (AUTO) 1.7 10^3/uL (0.0-1.0); MONOCYTES % (AUTO) 10 % (0-12); NEUTROPHILS # (AUTO) 13.4 10^3/uL (1.8-7.8); NEUTROPHILS % (AUTO) 79 % (42-75); PLATELET COUNT 331 10^3/uL (130-400); WHITE BLOOD COUNT 16.9 10^3/uL (4.3-11.0)
--- NOTE | 2020-04-23 07:06 | Progress Note - Hospitalist ---
Subjective HPI/CC On Admission Date Seen by Provider: Apr 23, 2020 Time Seen by Provider: 11:00 CC: GIB with chest pain HPI: This is a 79yoWM clinic patient of [facility] who had a recent stent placed while visiting family 5 months ago in [place] who presents to the ER with chest pain indicative of unstable angina. Patient was found to have low hgb 6.7 and reports passing melena for the past 2 months. Eliquis was stopped and will not be restarted per Cardiology. Patient was given 2 units of blood last night and Dr Barrow ordered 2 more units to get hgb 10 due to unstable angina and in need of EGD today so cardiac cath can be preformed. Subjective/Events-last exam Hgb 7.1 Confusion persists Can't move arms or legs much CVA definite signs Updated Agnes and she states DNR and wants DC home on Hospice SW consulted Review of Systems Neurological: Weakness Focused Exam Lactate Level 04/22/20 08:35: Lactic Acid Level 0.92 Objective Exam Vital Signs Vital Signs Date Time Temp Pulse Resp B/P (MAP) Pulse Ox O2 Delivery O2 Flow Rate FiO2 04/24/20 04:40 36.8 71 22 170/73 (105) 91 Room Air 04/19/20 11:00 Capillary Refill : Less Than 3 SecondsLess Than 3 Seconds General Appearance: No Apparent Distress, Chronically ill Respiratory: Lungs Clear, Decreased Breath Sounds Cardiovascular: Irregularly Irregular Extremity: Pedal Edema Neurologic/Psychiatric: Alert, Disoriented, Motor Weakness (1/5 all extremities) Results/Procedures Lab Laboratory Tests 04/23/20 06:56 Patient resulted labs reviewed. 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 04/22/20 with confusion and weakness Plan: EGD today Cath tomorrow Monitor hgb 04/17/20: EGD revealed gastric ulcers actively bleeding Cardiac cath tomorrow 04/19/20: Heparin drip due to elevated troponin but no intervention on cath since no definite lesion Yanick deviip due to V tach 04/22/20: PT OT Abx Monitor closely Guarded prognosis Need living will papers 04/23/20: DNR Hospice arranged DC tomorrow Diagnosis/Problems Diagnosis/Problems (1) Unstable angina Status: Acute (2) Anemia Status: Acute Qualifiers: Anemia type: iron deficiency Iron deficiency anemia type: chronic blood loss Qualified Codes: D50.0 - Iron deficiency anemia secondary to blood loss (chronic) (3) Chest pain Status: Acute (4) Acute kidney injury Status: Acute Clinical Quality Measures AMI/AHF: ASA po Prior to arrival: Yes DVT/VTE Risk/Contraindication: Risk Factor Score Per Nursin RFS Level Per Nursing on Admit: 2=Moderate Other: GI BLEED TEJINDER LUNA DO Apr 23, 2020 07:06
[2020-04-23 07:23] LABS: CALCIUM 9.1 MG/DL (8.5-10.1); CREATININE SERUM 1.73 MG/DL (0.60-1.30); MAGNESIUM 1.7 MG/DL (1.6-2.4); PHOSPHORUS 2.4 MG/DL (2.3-4.7); POTASSIUM 3.3 MMOL/L (3.6-5.0)
[2020-04-23] MEDS: AMIODARONE 200 MG (CORDARONE) TAB PO SCH ×2 (07:44→21:04)
[2020-04-23] MEDS: LOSARTAN 100 MG (COZAAR) TABLET PO SCH (07:44)
[2020-04-23] MEDS: meTOprolol TARTRATE 50 MG (LOPRESSOR) TAB PO SCH ×2 (07:44→21:04)
[2020-04-23] MEDS: ASPIRIN E.C. 81 MG (ECOTRIN) TAB PO SCH (07:44)
[2020-04-23] MEDS: APIXABAN 2.5 MG (ELIQUIS) TABLET PO SCH ×2 (07:44→21:03)
[2020-04-23] MEDS: PANTOPRAZOLE 40 MG (PROTONIX) VIAL IV SCH ×2 (07:45→21:06)
[2020-04-23] MEDS: DICLOFENAC 1% GEL 100 GM (VOLTAREN) TUBE TOP SCH ×4 (10:00→21:10)
--- NOTE | 2020-04-23 10:49 | Occupational Ther Daily Note ---
OT Current Status-Daily Note Subjective Pt alert, lying in bed. Nrsg in room. Pt states that any movement of the B UE's feels like knives and does yell out with movement. Mental Status/Objective Patient Orientation: Person Attachments: Amanda Catheter, IV, Telemetry ADL-Treatment Therapy Code Descriptions/Definitions Functional [place] Measure: 0=Not Assessed/NA 4=Minimal Assistance 1=Total Assistance 5=Supervision or Setup 2=Maximal Assistance 6=Modified Clarke 3=Moderate Assistance 7=Complete IndependenceSCALE: Activities may be completed with or without assistive devices. 1-Ujwhstpbzk-tgftdnl completes the activity by him/herself with no assistance from a helper. 5-Set-up or Clean-up Assistance-helper sets up or cleans up; patient completes activity. [place] assists only prior to or following the activity. 4-Supervision or Touching Assistance-helper provides verbal cues and/or touching/steadying and/or contact guard assistance as patient completes activity. Assistance may be provided throughout the activity or intermittently. 3-Partial/Moderate Assistance-helper does LESS THAN HALF the effort. [place] lifts, holds or supports trunk or limbs, but provides less than half the effort. 2-Substantial/Maximal Assistance-helper does MORE THAN HALF the effort. [place] lifts or holds trunk or limbs and provides more than half the effort. 4-Aeqwoqhxt-jqcext does ALL the effort. Patient does none of the effort to complete the activity. Or, the assistance of 2 or more helpers is required for the patient to complete the activity. If activity was not attempted, code reason: 7-Patient Refused. 9-Not Applicable-not attempted and the patient did not perform the activity before the current illness, exacerbation or injury. 10-Not Attempted due to Environmental Limitations-(lack of equipment, weather restraints, etc.). 88-Not Attempted due to Medical Conditions or Safety Concerns. Other Treatment Pt unable to hold onto milk container to bring to mouth to drink from straw. Applied ointment to B hand and wrist to decreased pain. Pt yelling out with movement and states "just stop". SANTAMARIA educated pt on elevating B hands to decrease edema which is one reason pt's hands are hurting. Increased edema in B hands noted. Minimal movement allowed throughout treatment. After session, pt lying in bed with call light/phone in reach. All needs met in room. OT Physical Ther Goals [facility] Goals Time Frame: May 16, 2020 Eating (QC): 5 Oral Hygiene (QC): 5 Toileting Hygiene (QC): 3 Shower/Bathe Self (QC): 3 Upper Body Dressing (QC): 3 Lower Body Dressing (QC): 3 On/Off Footwear (QC): 3 Additional Goals: 1-Demonstrate ADL Tasks, 2-Verbalize Understanding, 3- ImproveStrength/Dylan 1=Demonstrate adherence to instructed precautions during ADL tasks. 2=Patient will verbalize/demonstrate understanding of assistive devices/modifications for ADL. 3=Patient will improve strength/tolerance for activity to enable patient to perform ADL's. OT Education/Plan Problem List/Assessment Assessment: Decreased Activ Tolerance, Decreased Safety Aware, Decreased UE Strength, Impaired Bed Mobility, Impaired Self-Care Skills, Restricted Funct UE ROM Discharge Recommendations Plan/Recommendations: Continue POC Treatment Plan/Plan of Care Patient would benefit from OT for education, treatment and training to promote independence in ADL's, mobility, safety and/or upper extremity function for ADL's. Plan of Care: ADL Retraining, Group Exercise/Act as Ind, UE Funct Exercise/Act Treatment Duration: May 16, 2020 Frequency: 5 times per week Estimated Hrs Per Day: .25 hour per day Rehab Potential: Guarded Time/GCodes Start Time: 10:25 Stop Time: 10:40 Total Time Billed (hr/min): 15 Billed Treatment Time 1 visit-FA 1 (15 min) MIKE NICOLE Apr 23, 2020 10:49
--- NOTE | 2020-04-23 10:55 | Physical Therapy Daily Note ---
PT Daily Note-Current Subjective OT just complete. Patient reluctantly agrees to PT but adamantly declined OOB or EOB activity. PT attempted to educate patient on importance of increasing activity to get stronger, however, patient adamantly declined and became agitated. Mental Status Patient Orientation: Person, Situation Attachments: Amanda Catheter, IV Transfers SCALE: Activities may be completed with or without assistive devices. 1-Dhrfxxckpk-kpyqumy completes the activity by him/herself with no assistance f rom a helper. 5-Set-up or Clean-up Assistance-helper sets up or cleans up; patient completes activity. [place] assists only prior to or following the activity. 4-Supervision or Touching Assistance-helper provides verbal cues and/or touching/steadying and/or contact guard assistance as patient completes activity. Assistance may be provided throughout the activity or intermittently. 3-Partial/Moderate Assistance-helper does LESS THAN HALF the effort. [place] lifts, holds or supports trunk or limbs, but provides less than half the effort. 2-Substantial/Maximal Assistance-helper does MORE THAN HALF the effort. [place] lifts or holds trunk or limbs and provides more than half the effort. 2-Pmnqwrjrj-efvsay does ALL the effort. Patient does none of the effort to complete the activity. Or, the assistance of 2 or more helpers is required for the patient to complete the activity. If activity was not attempted, code reason: 7-Patient Refused. 9-Not Applicable-not attempted and the patient did not perform the activity before the current illness, exacerbation or injury. 10-Not Attempted due to Environmental Limitations-(lack of equipment, weather restraints, etc.). 88-Not Attempted due to Medical Conditions or Safety Concerns. Exercises Supine Ex: Ankle pumps, Heel Slides, Straight leg raise, Hip abd/add Supine Reps: 8 (gentle ROM due to patient yelling when touched bilateral LE) Assessment Patient tolerates minimal activity and ceased treatment. Education with patient on importance of increasing activity to improve current LOF, however, patient declined to continue. PT Short Term Goals Short Term Goals Time Frame: Apr 30, 2020 Roll Left & Right: 2 Sit to lyin Lying to sitting on side of be: 2 Sit to stand: 2 Chair/sxh-df-ukjtr transfer: 2 PT Frame Maker Goals Penitentiary Goals PT Penitentiary Goals Time Frame: May 16, 2020 Roll Left & Right (QC): 3 Sit to Lying (QC): 3 Lying-Sitting on Side/Bed(QC): 3 Sit to Stand (QC): 3 Chair/Xny-hw-Qcbcy Xfer(QC): 3 Toilet Transfer (QC): 3 Does the Patient Walk: No and Walking Goal IS indicated Walk 10 feet (QC): 3 PT Plan Treatment/Plan Treatment Plan: Continue Plan of Care Treatment Plan: Bed Mobility, Education, Functional Activity Dylan, Functional Strength, Gait, Safety, Therapeutic Exercise, Transfers Treatment Duration: May 16, 2020 Frequency: 6 times per week Estimated Hrs Per Day: .5 hour per day Patient and/or Family Agrees t: Yes Time/GCodes Time In: 1040 Time Out: 1052 Total Billed Treatment Time: 12 Total Billed Treatment 1 visit EX 12 min VINOD FRIEDMAN PT Apr 23, 2020 10:55
[2020-04-23] MEDS ORDERED: HYDROcodone/APAP 5 MG/325 MG (LORTAB) TAB PO PRN ×2 (11:30→12:00)
[2020-04-23] MEDS ORDERED: AMIO200T6 PO (11:57)
[2020-04-23] MEDS ORDERED: METO50TA15 PO (11:57)
[2020-04-23] MEDS ORDERED: PANT40TA2 PO (11:57)
[2020-04-23] MEDS ORDERED: SUCR1TAB PO (11:57)
[2020-04-23] MEDS ORDERED: MORP20SO PO (11:57)
[2020-04-23] MEDS ORDERED: LORA2ORA PO (11:57)
[2020-04-23] MEDS: KCL 20 MEQ TAB (K-DUR) PO SCH ×2 (12:03→12:04)
--- NOTE | 2020-04-23 12:40 | NUR ---
CM/SS: Telephone call to Agnes - daughter - [phone] - to discuss the discharge plans for pt. They are aware that pt will discharge with Hospice. She is given options for Hospices in the area. She would like pt to have [facility]. She is given there information and told they will be in contact with her. She verbalizes understanding. She would like to have a hospital bed and she is able to verify the address for pt to discharge to [address] [place] [address]. This worker will follow up. Telephone call to [facility] - [phone] - letting them know of the referral. Information is faxed to them for review. They will follow up with daughter, Agnes.
--- NOTE | 2020-04-23 12:52 | Discharge Summary ---
Discharge Summary Hospital Course Problems/Dx: (1) Unstable angina Status: Acute (2) Anemia Status: Acute Qualifiers: Qualified Codes: D50.0 - Iron deficiency anemia secondary to blood loss (chronic) (3) Chest pain Status: Acute (4) Acute kidney injury Status: Acute Hospital Course Date of Admission: Apr 15, 2020 at 21:24 Admission Diagnosis : Family Physician/Provider: Jareth Pablo Date of Discharge: 04/23/20 Discharge Diagnosis: [ ] Hospital Course: [ ] Labs and Pending Lab Test: Laboratory Tests 04/22/20 14:20: Urine Color YELLOW, Urine Clarity CLEAR, Urine pH 5.5, Urine Specific Tea 1.025H, Urine Protein 2+H, Urine Glucose (UA) NEGATIVE, Urine Ketones NEGATIVE, Urine Nitrite NEGATIVE, Urine Bilirubin NEGATIVE, Urine Urobilinogen 1.0, Urine Leukocyte Esterase NEGATIVE, Urine RBC (Auto) 3+H, Urine RBC TNTCH, Urine WBC 5- 10H, Urine Crystals PRESENTH, Urine Calcium Oxalate Crystals MODERATEH, Urine Bacteria MODERATEH, Urine Casts NONE, Urine Mucus NEGATIVE, Urine Culture Indicated YES 04/22/20 14:35: Blood Gas Puncture Site RR, Blood Gas Patient Temperature 36.4, Arterial Blood pH 7.45H, Arterial Blood Partial Pressure CO2 29L, Arterial Blood Partial Pressure O2 74L, Arterial Blood HCO3 21L, Arterial Blood Total CO2 21.5, Arterial Blood Oxygen Saturation 96, Arterial Blood Base Excess -2.9L, Talon Test YES-POS, Blood Gas Ventilator Setting NO, Blood Gas Inspired Oxygen 2L 04/22/20 16:26: Glucometer 200H 04/22/20 20:51: Glucometer 187H 04/23/20 06:06: Glucometer 187H 04/23/20 06:56: White Blood Count 16.9H, Red Blood Count 2.85L, Hemoglobin 7.1L, Hematocrit 23L, Mean Corpuscular Volume 81, Mean Corpuscular Hemoglobin 25, Mean Corpuscular Hemoglobin Concent 31L, Red Cell Distribution Width 18.7H, Platelet Count 331, Mean Platelet Volume 10.9, Immature Granulocyte % (Auto) 1, Neutrophils (%) (Auto) 79H, Lymphocytes (%) (Auto) 8L, Monocytes (%) (Auto) 10, Eosinophils (%) (Auto) 2, Basophils (%) (Auto) 0, Neutrophils # (Auto) 13.4H, Lymphocytes # (Auto) 1.3, Monocytes # (Auto) 1.7H, Eosinophils # (Auto) 0.4H, Basophils # (Auto) 0.1, Immature Granulocyte # (Auto) 0.1, Sodium Level 140, Potassium Level 3.3L, Chloride Level 108H, Carbon Dioxide Level 21, Anion Gap 11, Blood Urea Nitrogen 37H, Creatinine 1.73H, Estimat Glomerular Filtration Rate 38, BUN/Creatinine Ratio 21, Glucose Level 185H, Calcium Level 9.1, Phosphorus Level 2.4, Magnesium Level 1.7 04/23/20 11:13: Glucometer 213H Microbiology 04/22/20 Urine Culture - Final, Complete NO GROWTH 04/21/20 Blood Culture - Preliminary, Resulted No growth 04/16/20 MRSA Screen - Final, Complete MRSA not isolated Home Meds Active Lorazepam Intensol (Lorazepam) 2 Mg/1 Ml Oral.conc 2 Mg PO Q2H PRN Morphine Sulfate 20 Mg/5 Ml Solution 20 Mg PO Q3HR PRN Protonix (Pantoprazole Sodium) 40 Mg Tablet.dr 40 Mg PO BID Sucralfate 1 Gm Tablet 1 Gm PO ACHS Metoprolol Tartrate 50 Mg Tablet 100 Mg PO BID Amiodarone HCl 200 Mg Tablet 200 Mg PO BID Nitroglycerin 0.4 Mg Tab.subl 0.4 Mg SL NEEDED PRN 1 tablet sublingual as needed for chest pain. May repeat every 5 minutes x 3 doses Reported Eliquis (Apixaban) 5 Mg Tablet 5 Mg PO BID Plavix (Clopidogrel Bisulfate) 75 Mg Tablet 75 Mg PO DAILY Metoprolol Tartrate 25 Mg Tablet 12.5 Mg PO BID Zoeaglwaqar Gupta U-100 (Insulin Glargine,Hum.rec.anlog) 100 Unit/1 Ml Insuln.pen 70 Unit SQ BID Novolog (Insulin Aspart) 100 Unit/1 Ml Susp 20 Unit SQ BID Aspirin EC (Aspirin) 81 Mg Tablet.dr 81 Mg PO DAILY Vitamin C with Jadyn Hips (Ascorbic Acid) 1,000 Mg Tablet 1,000 Mg PO DAILY Super B Complex (Vitamin B Complex & Vit C No.4) 150 Mg Tablet 150 Mg PO DAILY Potassium Gluconate 595 MG (Potassium Gluconate) 99 Mg Tablet 99 Mg PO DAILY Hydrochlorothiazide 25 Mg Tablet 25 Mg PO DAILY Losartan Potassium 100 Mg Tablet 100 Mg PO DAILY Lovastatin 40 Mg Tablet 40 Mg PO HS Gemfibrozil 600 Mg Tablet 600 Mg PO BID Multi-Vitamin Daily (Multivitamin) 1 Each Tablet 1 Tab PO DAILY Discharge Physical Examination Vital Signs Vital Signs Date Time Temp Pulse Resp B/P (MAP) Pulse Ox O2 Delivery O2 Flow Rate FiO2 04/23/20 11:33 36.3 91 25 159/80 (106) 93 Room Air 04/19/20 11:00 Allergies: Coded Allergies: No Known Drug Allergies (Unverified , 12/19/12) Discharge Summary Date of Admission Apr 15, 2020 at 21:24 Date of Discharge Discharge Date: Apr 23, 2020 Admission Diagnosis Assessment: Unstable angina Severe symptomatic anemia s/p 4 units of blood transfusions CAD recent stent 5 months ago OAC now stopped indefinitely HTN HLP Plan: EGD today Cath tomorrow Monitor hgb Discharge Diagnosis Assessment: Unstable angina with elevated troponin but no intervention on cath placed on Hep drip Severe symptomatic anemia Gastric ulcer bleed on EGD s/p 4 units of blood transfusions CAD recent stent 5 months ago OAC now stopped indefinitely HTN HLP V-tach episodes on Amio drip Fever 04/22/20 placed on Zosyn UA normal and CXR normal 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 04/22/20 with confusion and weakness Plan: EGD today Cath tomorrow Monitor hgb 04/17/20: EGD revealed gastric ulcers actively bleeding Cardiac cath tomorrow 04/19/20: Heparin drip due to elevated troponin but no intervention on cath since no definite lesion Amio drip due to V tach 04/22/20: PT OT Abx Monitor closely Guarded prognosis Need living will papers (1) Unstable angina Status: Acute (2) Anemia Status: Acute Qualifiers: Qualified Codes: D50.0 - Iron deficiency anemia secondary to blood loss (chronic) (3) Chest pain Status: Acute (4) Acute kidney injury Status: Acute Clinical Quality Measures AMI/AHF: ASA po Prior to arrival: Yes DVT/VTE Risk/Contraindication: Risk Factor Score Per Nursin RFS Level Per Nursing on Admit: 2=Moderate Other: GI BLEED TEJINDER LUNA DO Apr 23, 2020 12:51
--- NOTE | 2020-04-23 13:15 | NUR ---
Patient transferred to room 421 at this time, report received pawan Freeman RN prior to patient arriving on floor. Patient was oriented to room and call light.
--- NOTE | 2020-04-23 13:25 | NUR ---
CM/SS: Family request that pt be discharged to home on tomorrow 04/24/2020. Hospice is notified and can admit pt on tomorrow.
--- NOTE | 2020-04-23 13:26 | NUR ---
CM/SS: Non Emergent EMS transfer form is faxed to [facility] for the transport for tomorrow - 04/24/20. Copy of form is in the pt's medical record.
--- NOTE | 2020-04-23 13:28 | NUR ---
CM/SS: Dr Khan notified about families request for the discharge to be tomorrow 04/24/20. She is ok with that. She also gave the OK for the Non emergent EMS transfer. NANCY Lynn is notified.
--- NOTE | 2020-04-23 16:01 | Progress Note - Cardiology ---
Cardiology SOAP Progress Note Subjective: Gen malaise and weakness No cp or palp or syncope No shortness of breath at rest No n/v Objective: I&O/Vital Signs 04/23/20 04/23/20 04/23/20 04/23/20 04:00 06:43 07:28 08:00 Temp 36.5 36.5 Pulse 75 80 99 Resp 20 24 B/P (MAP) 146/63 (90) 166/102 (123) Pulse Ox 94 94 O2 Delivery Room Air Room Air Room Air 04/23/20 04/23/20 04/23/20 04/23/20 11:33 12:58 13:09 15:21 Temp 36.3 36.9 37.4 Pulse 91 78 87 58 Resp 20 B/P (MAP) 159/80 (106) 174/68 (103) 195/82 (119) Pulse Ox 93 96 93 O2 Delivery Room Air Room Air Room Air 04/23/20 00:00 Intake Total 700 ml Output Total 1750 ml Balance -1050 ml Weight (Pounds): 270 Weight (Ounces): 0.0 Weight (Calculated Kilograms): 122.755866 Constitutional: AAO x 3 Respiratory: chest is bilaterally symmetric, lungs clear to auscultation Cardiovascular: irregularly irregular, S1 and S2; No diastolic murmur, No systolic murmur Gastrointestional: No tender; soft, audible bowel sounds Extremities: normal range of motion, non-tender, normal inspection, other (mild to mod bilat LE swelling) Neurologic/Psychiatric: no motor/sensory deficits, alert, normal mood/affect, oriented x 3 Skin: normal color, warm/dry Results/Procedures: Labs Laboratory Tests 04/22/20 16:26: Glucometer 200H 04/22/20 20:51: Glucometer 187H 04/23/20 06:06: Glucometer 187H 04/23/20 06:56: White Blood Count 16.9H, Red Blood Count 2.85L, Hemoglobin 7.1L, Hematocrit 23L, Mean Corpuscular Volume 81, Mean Corpuscular Hemoglobin 25, Mean Corpuscular Hemoglobin Concent 31L, Red Cell Distribution Width 18.7H, Platelet Count 331, Mean Platelet Volume 10.9, Immature Granulocyte % (Auto) 1, Neutrophils (%) (Auto) 79H, Lymphocytes (%) (Auto) 8L, Monocytes (%) (Auto) 10, Eosinophils (%) (Auto) 2, Basophils (%) (Auto) 0, Neutrophils # (Auto) 13.4H, Lymphocytes # (Auto) 1.3, Monocytes # (Auto) 1.7H, Eosinophils # (Auto) 0.4H, Basophils # (Auto) 0.1, Immature Granulocyte # (Auto) 0.1, Sodium Level 140, Potassium Level 3.3L, Chloride Level 108H, Carbon Dioxide Level 21, Anion Gap 11, Blood Urea Nitrogen 37H, Creatinine 1.73H, Estimat Glomerular Filtration Rate 38, BUN/Creatinine Ratio 21, Glucose Level 185H, Calcium Level 9.1, Phosphorus Level 2.4, Magnesium Level 1.7 04/23/20 11:13: Glucometer 213H Microbiology 04/22/20 Urine Culture - Final, Complete NO GROWTH 04/21/20 Blood Culture - Preliminary, Resulted No growth 04/16/20 MRSA Screen - Final, Complete MRSA not isolated Laboratory Tests 04/22/20 03:12 04/23/20 06:56 A/P: Assessment: Uncontrolled hypertension CAD. Admitted with NSTEMI and card cath on 04/18/[address] Robbins showed severe occlusive left main and three vessel disease with patent grafts to LAD, D1 and OM1. RCA is not grafted with faint collaterals from the left. No PCI done. NSTEMI likely due to severe anemia and in the presence of small or distal vessel disease H/o PAF - currently in a-fib (04-22-2020) H/o exterminator helper treatment with ASA, Plavix and Eliquis. On 04/20/20, Plavix stopped, heparin stopped, and restarted a lowered dose of Eliquis (due to h/o GI bleed) NSVT - Amiodarone bolus and infusion. Now on oral amiodarone and metoprolol Echocardiogram of Apr 16, [address] Barrow showed LVEF 55-65%. Grade 2 diastolic dysfunction. LA and RA dialted. Mod MR. Ao valve thickening consistent with sclerosis, mild regurg. Mod TR. PASP 40-45mmHg Worsening anemia. Severe anemia, probably GI loss. Dr. Aguirre endoscopy on Apr 16, 2020 Reflux esophagitis stage II, small hiatal hernia approximately 2 cm in s ize, severe gastritis of the stomach antrum with small multiple prepyloric ulcers, two of which were actively bleeding. Underwent biopsy and hemostasis with cautery as well as placement of clips Acute on chronic renal failure - worsening renal function today Acute and chronic diastolic congestive heart failure Right bundle branch block, chronic Hyperlipidemia Mild bilateral carotid artery stenosis, last carotid ultrasound was done in December 2018 Diabetes mellitus-managed by the [facility] Obesity, BMI 40 Plan: * Hgb continues to fall despite multiple transfusions - management per Medical services * Complex management due to multiple comorbidities the treatments of which contradict each other * Because there appears to ongoing active bleeding, we have already de- intensified his antiplatelet and anticoag regimen (see above). We need to continue some antiplatelet and some anticoag for his known CAD and PAF * Add doxazosin for better bp control * Replace potassium * Monitor labs closely Clinical Quality Measures AMI/AHF: ASA po Prior to arrival: Yes REESE DEVI MD FACP FAC CCDS Apr 23, 2020 16:00
[2020-04-23] MEDS: doxAzosin 4 MG (CARDURA) TAB PO SCH (21:04)
[2020-04-23] MEDS: SIMvastatin 20 MG (ZOCOR) TAB PO SCH (21:04)
[2020-04-24 00:06] VITALS: BP 112/56
[2020-04-24 04:40] VITALS: BP 170/73
[2020-04-24] MEDS: inSUlin ASPART (NovoLOG) 1 UNIT/0.01 ML (CHARGE PER UNIT) SC SCH ×2 (06:03→11:42)
[2020-04-24] MEDS: SUCRALFATE 1 GM (CARAFATE) TAB PO SCH ×2 (06:38→11:57)
[2020-04-24] MEDS: PIPERACILLIN/TAZOBACTAM (BULK) 4.5 GM in NS (IVPB) 100 ML IV SCH (06:38)
[2020-04-24 07:32] VITALS: BP 151/65
[2020-04-24] MEDS: PANTOPRAZOLE 40 MG (PROTONIX) VIAL IV SCH (09:46)
[2020-04-24] MEDS: doxAzosin 4 MG (CARDURA) TAB PO SCH (09:46)
[2020-04-24] MEDS: APIXABAN 2.5 MG (ELIQUIS) TABLET PO SCH (09:47)
[2020-04-24] MEDS: ASPIRIN E.C. 81 MG (ECOTRIN) TAB PO SCH (09:47)
[2020-04-24] MEDS: meTOprolol TARTRATE 50 MG (LOPRESSOR) TAB PO SCH (09:47)
[2020-04-24] MEDS: AMIODARONE 200 MG (CORDARONE) TAB PO SCH (09:47)
[2020-04-24] MEDS: DICLOFENAC 1% GEL 100 GM (VOLTAREN) TUBE TOP SCH (09:47)
[2020-04-24] MEDS: LOSARTAN 100 MG (COZAAR) TABLET PO SCH (09:48)
--- NOTE | 2020-04-24 10:05 | Discharge Summary ---
Discharge Summary Hospital Course Was the Problem List Reviewed?: Yes Problems/Dx: (1) Unstable angina Status: Acute (2) Anemia Status: Acute Qualifiers: Qualified Codes: D50.0 - Iron deficiency anemia secondary to blood loss (chronic) (3) Chest pain Status: Acute (4) Acute kidney injury Status: Acute Hospital Course Date of Admission: Apr 15, 2020 at 21:24 Admission Diagnosis : Family Physician/Provider: Jareth Pablo Date of Discharge: 04/24/20 Discharge Diagnosis: CVA, CAD, CHF, CRF, Anemia, GIB Hospital Course: Lengthy hospital course after admitted for NSTEMI and severe anemia s/p 4 units of blood and EGD Dr Aguirre revealed gastric ulcers. Cath performed and no intervention initiated only Hep gtts but V-tach noted so kept in ICU on Amiodarone drip and ultimately stabilized but started declining and becoming very weak and confused with fever no evidence of source but placed on Zosyn but then CT brain obtained revealing subacute embolic strokes likely due to AF off OAC due to severe GI bleeding. Agnes CRUZ updated and the decision was made to place him on Hospice and DC home. Labs and Pending Lab Test: Laboratory Tests 04/23/20 11:13: Glucometer 213H 04/23/20 17:38: Glucometer 201H 04/24/20 06:02: Glucometer 162H Microbiology 04/22/20 Urine Culture - Final, Complete NO GROWTH 04/21/20 Blood Culture - Preliminary, Resulted No growth 04/16/20 MRSA Screen - Final, Complete MRSA not isolated Home Meds Active Lorazepam Intensol (Lorazepam) 2 Mg/1 Ml Oral.conc 2 Mg PO Q2H PRN Morphine Sulfate 20 Mg/5 Ml Solution 20 Mg PO Q3HR PRN Protonix (Pantoprazole Sodium) 40 Mg Tablet.dr 40 Mg PO BID Sucralfate 1 Gm Tablet 1 Gm PO ACHS Metoprolol Tartrate 50 Mg Tablet 100 Mg PO BID Amiodarone HCl 200 Mg Tablet 200 Mg PO BID Nitroglycerin 0.4 Mg Tab.subl 0.4 Mg SL NEEDED PRN 1 tablet sublingual as needed for chest pain. May repeat every 5 minutes x 3 doses Reported Eliquis (Apixaban) 5 Mg Tablet 5 Mg PO BID Plavix (Clopidogrel Bisulfate) 75 Mg Tablet 75 Mg PO DAILY Metoprolol Tartrate 25 Mg Tablet 12.5 Mg PO BID Basaglar Patelikpen U-100 (Insulin Glargine,Hum.rec.anlog) 100 Unit/1 Ml Insuln.pen 70 Unit SQ BID Novolog (Insulin Aspart) 100 Unit/1 Ml Susp 20 Unit SQ BID Aspirin EC (Aspirin) 81 Mg Tablet.dr 81 Mg PO DAILY Vitamin C with Jadyn Hips (Ascorbic Acid) 1,000 Mg Tablet 1,000 Mg PO DAILY Super B Complex (Vitamin B Complex & Vit C No.4) 150 Mg Tablet 150 Mg PO DAILY Potassium Gluconate 595 MG (Potassium Gluconate) 99 Mg Tablet 99 Mg PO DAILY Hydrochlorothiazide 25 Mg Tablet 25 Mg PO DAILY Losartan Potassium 100 Mg Tablet 100 Mg PO DAILY Lovastatin 40 Mg Tablet 40 Mg PO HS Gemfibrozil 600 Mg Tablet 600 Mg PO BID Multi-Vitamin Daily (Multivitamin) 1 Each Tablet 1 Tab PO DAILY Assessment/Pt Instructions Home on Hospice Discharge Planning: <30 minutes discharge planning Discharge Physical Examination Vital Signs Vital Signs Date Time Temp Pulse Resp B/P (MAP) Pulse Ox O2 Delivery O2 Flow Rate FiO2 04/24/20 07:32 36.8 78 20 151/65 (93) 92 Room Air 04/19/20 11:00 General Appearance: Chronically ill, Other (lethargic) Allergies: Coded Allergies: No Known Drug Allergies (Unverified , 12/19/12) Discharge Summary Date of Admission Apr 15, 2020 at 21:24 Date of Discharge Discharge Date: Apr 23, 2020 Admission Diagnosis Assessment: Unstable angina Severe symptomatic anemia s/p 4 units of blood transfusions CAD recent stent 5 months ago OAC now stopped indefinitely HTN HLP Plan: EGD today Cath tomorrow Monitor hgb Discharge Diagnosis Assessment: Unstable angina with elevated troponin but no intervention on cath placed on Hep drip Severe symptomatic anemia Gastric ulcer bleed on EGD s/p 4 units of blood transfusions CAD recent stent 5 months ago OAC now stopped indefinitely HTN HLP V-tach episodes on Amio drip Fever 04/22/20 placed on Zosyn UA normal and CXR normal 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 04/22/20 with confusion and weakness Plan: EGD today Cath tomorrow Monitor hgb 04/17/20: EGD revealed gastric ulcers actively bleeding Cardiac cath tomorrow 04/19/20: Heparin drip due to elevated troponin but no intervention on cath since no definite lesion Amio drip due to V tach 04/22/20: PT OT Abx Monitor closely Guarded prognosis Need living will papers 04/23/20: DNR Hospice arranged DC tomorrow (1) Unstable angina Status: Acute (2) Anemia Status: Acute Qualifiers: Qualified Codes: D50.0 - Iron deficiency anemia secondary to blood loss (chronic) (3) Chest pain Status: Acute (4) Acute kidney injury Status: Acute Clinical Quality Measures AMI/AHF: ASA po Prior to arrival: Yes DVT/VTE Risk/Contraindication: Risk Factor Score Per Nursin RFS Level Per Nursing on Admit: 2=Moderate Other: GI BLEED TEJINDER LUNA DO Apr 24, 2020 10:05
--- NOTE | 2020-04-24 12:17 | NUR ---
EMS CALLED FOR TRANSPORT
[2020-04-24 13:00] VITALS: BP 151/65
--- NOTE | 2020-04-24 13:00 | NUR ---
ARMANDO GROSS demonstrates understanding of discharge instructions and accurately returns instructions upon questioning. Copy of Post-Discharge Instructions and Medication Discharge Instructions given to PT. ARMANDO GROSS is not able to manage continuing needs after discharge (HOME ON HOSPICE). Patients belongings returned to PT. Skin dry and intact; no breakdown noted. Patient discharged from 421-1 on at 1300. ARMANDO GROSS left floor via STRETCHER, accompanied by EMS.
== END 2020-04-24 13:00 | disposition hospice, home (50) | DRG 377 ==
LOC: EDUNIT# 19:55 → ER 19:58 → 4TH 21:24 → EDLOC 21:24 → ICU 04-18 13:27 → CSD 04-20 07:20 → 4TH 04-23 13:03
PROVIDERS: ADMIT Internal Medicine; ATTEND Internal Medicine
PROC: 0DB68ZX Excision of Stomach, Via Natural or Artificial Opening Endoscopic, Diagnostic (ICD-10-PCS; 2020-04-16)
PROC: 0DB48ZX Excision of Esophagogastric Junction, Via Natural or Artificial Opening Endoscopic, Diagnostic (ICD-10-PCS; principal; 2020-04-16 17:05)
PROC: 4A023N7 Measurement of Cardiac Sampling and Pressure, Left Heart, Percutaneous Approach (ICD-10-PCS; 2020-04-18)
PROC: B2111ZZ Fluoroscopy of Multiple Coronary Arteries using Low Osmolar Contrast (ICD-10-PCS; 2020-04-18)
PROC: B2131ZZ Fluoroscopy of Multiple Coronary Artery Bypass Grafts using Low Osmolar Contrast (ICD-10-PCS; 2020-04-18)
DX: K25.4 Chronic or unspecified gastric ulcer with hemorrhage (principal); I21.4 Non-ST elevation (NSTEMI) myocardial infarction; I63.9 Cerebral infarction, unspecified; I50.33 Acute on chronic diastolic (congestive) heart failure; N17.9 Acute kidney failure, unspecified; I47.2 Ventricular tachycardia; I13.0 Hypertensive heart and chronic kidney disease with heart failure and stage 1 through stage 4 chronic kidney disease, or unspecified chronic kidney disease; Z68.41 Body mass index [BMI] 40.0-44.9, adult; I25.110 Atherosclerotic heart disease of native coronary artery with unstable angina pectoris; K29.71 Gastritis, unspecified, with bleeding; I25.10 Atherosclerotic heart disease of native coronary artery without angina pectoris; M19.90 Unspecified osteoarthritis, unspecified site; Z20.828 Contact with and (suspected) exposure to other viral communicable diseases; F41.9 Anxiety disorder, unspecified; F32.9 Major depressive disorder, single episode, unspecified; D50.0 Iron deficiency anemia secondary to blood loss (chronic); Z66 Do not resuscitate; Z51.5 Encounter for palliative care; K21.9 Gastro-esophageal reflux disease without esophagitis; G47.33 Obstructive sleep apnea (adult) (pediatric); F03.90 Unspecified dementia, unspecified severity, without behavioral disturbance, psychotic disturbance, mood disturbance, and anxiety; E11.9 Type 2 diabetes mellitus without complications; I44.0 Atrioventricular block, first degree; K44.9 Diaphragmatic hernia without obstruction or gangrene; F29 Unspecified psychosis not due to a substance or known physiological condition; I48.0 Paroxysmal atrial fibrillation; N18.9 Chronic kidney disease, unspecified; E66.9 Obesity, unspecified; E83.42 Hypomagnesemia; E87.6 Hypokalemia; Z79.82 Long term (current) use of aspirin; Z79.4 Long term (current) use of insulin; Z87.891 Personal history of nicotine dependence; Z95.1 Presence of aortocoronary bypass graft; Z95.5 Presence of coronary angioplasty implant and graft; Z79.01 Long term (current) use of anticoagulants
CPT/HCPCS: 36415; 70450; 71045; 73110; 80048; 80053; 80061; 81000; 82274; 82550; 82553; 82805; 82962; 83605; 83735; 84100; 84145; 84484; 85007; 85014; 85018; 85025; 85027; 85610; 85730; 86850; 86900; 86901; 86920; 87040; 87081; 87088; 87635; 88305; 88312; 93005; 93306; 93459; 96374; 96375